=== PATIENT | male | born 1950 | race Caucasian/White ===

== ENCOUNTER 2017-01-02 11:44 | Emergency (ER) | payer MEDICARE, OTHER ==
[2017-01-02 11:45] VITALS: BMI 35.6
[2017-01-02 11:56] VITALS: RESP 16; TEMP 97; O2SAT 97
--- NOTE | 2017-01-02 12:38 | ED PDOC ---
Lower Extremity Pain/Injury Time Seen by Provider: 01/02/17 12:01 Chief Complaint (Nursing): Lower Extremity Problem/Injury Chief Complaint (Provider): Left knee pain History Per: Patient History/Exam Limitations: no limitations Onset/Duration Of Symptoms: Days (2 weeks) Current Symptoms Are (Timing): Still Present Pain Scale Rating Of: 7 Additional History Per: Patient Additional Complaint(s): The patient is a 66yo male, past medical history of hypertension, DM, coronary stent, presents to the ED for evaluation of left knee pain, for the past 2 weeks. Patient states the pain has been constant and was advised by his home nurse to visit the ED for an evaluation. Patient denies any injury or trauma to the knee and states he was pain-free prior to the onset of his symptoms. He denies any such pain in the past and reports his right knee is okay. He denies any numbness, tingling and states the pain is 7/10. He denies taking any medication for his pain and at present, offers no additional medical complaints. Past Medical History Reviewed: Historical Data, Nursing Documentation, Vital Signs Vital Signs: Last Vital Signs Temp 97 F L 01/02/17 11:52 Pulse 58 L 01/02/17 11:52 Resp 16 01/02/17 11:52 BP 136/91 H 01/02/17 11:52 Pulse Ox 97 01/02/17 11:52 - Medical History PMH: Arthritis, Depression, Diabetes, HTN, Hypercholesterolemia, Hyperlipidemia , Schizophrenia Denies: HIV, Chronic Kidney Disease - Surgical History Surgical History: Coronary Stent - Family History Family History: States: Diabetes Denies: Stroke, [place] - Immunization History Hx Tetanus Toxoid Vaccination: No Hx Influenza Vaccination: No Hx Pneumococcal Vaccination: No - Home Medications Home Medications: Ambulatory Orders Medication Instructions Recorded Aspirin 325 mg PO DAILY #14 tab 05/28/14 Clopidogrel [Plavix] 75 mg PO DAILY #14 tab 05/28/14 Cyanocobalamin [Vitamin B12 1000 1,000 mcg PO DAILY #14 tab 05/28/14 mcg Tab] Folic Acid 1 mg PO DAILY #14 tab 05/28/14 Metformin HCl 1,000 mg PO BID #14 tab 05/28/14 Naproxen 500 mg PO BID #28 tab 05/28/14 Ramipril 2.5 mg PO DAILY #14 cap 05/28/14 Cholecalciferol [Vitamin D 1000 IU] 2,000 unit PO DAILY 06/18/14 DULoxetine [Cymbalta] 60 mg PO BID 06/18/14 Home Med 1 unit .ROUTE DAILY #0 ea 06/18/14 Metoprolol Tartrate 25 mg PO BID 06/18/14 traMADol [Ultram] 50 mg PO Q6H PRN #15 tab 06/18/14 ARIPiprazole [Abilify] 10 mg PO DAILY #0 tab 06/24/14 Alprazolam [Xanax] 0.5 mg PO Q6 PRN 06/24/14 Aripiprazole [Abilify] 10 mg PO DAILY 06/24/14 Enoxaparin [Lovenox] 40 mg SC DAILY #0 syr 06/24/14 Tramadol Hydrochloride [Tramadol] 50 mg PO Q6H PRN #15 tab 07/14/14 traMADol [Ultram] 50 mg PO Q6H PRN #15 tab 01/02/17 - Allergies Allergies/Adverse Reactions: Allergies Allergy/AdvReac Type Severity Reaction Status Date / Time No Known Allergies Allergy Verified 01/02/17 12:24 Review of Systems ROS Statement: Except As Marked, All Systems Reviewed And Found Negative Musculoskeletal: Positive for: Leg Pain (lt knee pain) Neurological: Negative for: Weakness, Numbness (tingling) Physical Exam - Reviewed Nursing Documentation Reviewed: Yes Vital Signs Reviewed: Yes - Physical Exam Appears: Positive for: Well, Non-toxic, No Acute Distress Skin: Positive for: Normal Color, Warm, DRY Neck: Positive for: Normal, Supple Respiratory: Negative for: Respiratory Distress Extremity: Positive for: Normal ROM, Calf Tenderness (mild left calf tenderness) . Negative for: Deformity, Swelling Neurologic/Psych: Positive for: Alert, Oriented. Negative for: Motor/Sensory Deficits - ECG O2 Sat by Pulse Oximetry: 97 (RA) Pulse Ox Interpretation: Normal Medical Decision Making Medical Decision Making: Time: 1201 Impression: Left knee pain Plan: -- XR Left knee -- US Doppler lle -- Ultram 50 mg PO Reassess Time: 1339 XR as read by provider shows no signs of dislocation or fractures. Degenerative changes noted. US Doppler Impression: No sonographic or Doppler evidence for DVT in left lower extremity. Patient informed to f/u with PCP and is stable for discharge home. Scribe Attestation: Documented by Shey Acacia acting as a scribe for GARY Singh Provider Attestation: All medical record entries made by the Scribe were at my direction and personally dictated by me. I have reviewed the chart and agree that the record accurately reflects my personal performance of the history, physical exam, medical decision making, and the department course for this patient. I have also personally directed, reviewed, and agree with the discharge instructions and disposition. Disposition - Clinical Impression Clinical Impression: Knee pain Counseled Patient/Family Regarding: Studies Performed, Diagnosis, Need For Followup - Disposition Referrals: Michelle Yin MD [Staff Provider] - Disposition: Routine/Home Disposition Time: 13:39 Condition: STABLE Prescriptions: traMADol [Ultram] 50 mg PO Q6H PRN #15 tab PRN Reason: Pain Instructions: Knee Pain (ED) Forms: [facility] ([facility])
--- NOTE | 2017-01-02 13:14 | US ---
HISTORY: Knee pain, calf tenderness . PRIORS: None. FINDINGS: 2-D, color and duplex Doppler analysis of the lower extremity venous circulation using routine protocol from the femoral veins through the popliteal veins. Venous compressibility: Normal. Flow and augmentation patterns: Normal. Visualized veins upper third of calf: Normal. Perez cyst: None. IMPRESSION: No sonographic or Doppler evidence for DVT in left lower extremity.
[2017-01-02 13:47] VITALS: BP 143/84; PULSE 63
--- NOTE | 2017-01-02 14:11 | RAD ---
PROCEDURE: Left Knee Radiographs. HISTORY: Pain. COMPARISON: 06/18/2014 FINDINGS: BONES: There is no acute displaced fracture or bone destruction. Bone alignment and mineralization are normal. JOINTS: There is interval progression of severe degenerative osteoarthrosis in the medial compartment with severe reduced joint space, marginal osteophytes and subarticular cystic changes. There are also patellar osteophytes and mild degenerative osteoarthrosis in the patellofemoral joint. JOINT EFFUSION: There is a small suprapatellar joint effusion. OTHER FINDINGS: None. IMPRESSION: Interval progression of severe degenerative osteoarthrosis in the medial compartment. Small suprapatellar joint effusion.
== END 2017-01-02 13:47 | disposition home or self-care (01) ==
LOC: H.ER 11:44
DX: M25.562 Pain in left knee (principal); E11.9 Type 2 diabetes mellitus without complications; E78.5 Hyperlipidemia, unspecified; F20.9 Schizophrenia, unspecified; F32.9 Major depressive disorder, single episode, unspecified; I10 Essential (primary) hypertension; M17.12 Unilateral primary osteoarthritis, left knee; Z79.82 Long term (current) use of aspirin; Z95.5 Presence of coronary angioplasty implant and graft

== ENCOUNTER 2018-05-25 15:55 | Inpatient (IN) | payer MEDICARE ==
[2018-05-25 15:55] VITALS: BMI 35.6
[2018-05-25] MEDS ORDERED: Azithromycin 500 MG in Sodium Chloride 0.9% 250 ML IVPB ONE (17:45)
[2018-05-25 18:15] LABS: BASO # 0.1 K/uL (0.0-0.2); BASO % 0.9 % (0.0-2.0); EOS % 0.5 % (0.0-4.0); HEMOGLOBIN 15.8 g/dL (12.0-18.0); LYMPH # 1.1 K/uL (1.0-4.3); LYMPH % 17.4 % (20.0-40.0); MEAN CELL VOLUME 91.4 fl (80.0-94.0); MEAN CORPUSCULAR HEMOGLOBIN 30.7 pg (27.0-31.0); MEAN CORPUSCULAR HGB CONC 33.6 g/dL (33.0-37.0); MEAN PLATELET VOLUME 8.3 fl (7.2-11.7); MONO # 0.8 K/uL (0.0-0.8); MONO % 12.6 % (0.0-10.0); NEUT # 4.3 K/uL (1.8-7.0); NEUT % 68.6 % (50.0-75.0); NRBC % 0.2 % (0.0-0.0); RBC 5.16 Mil/uL (4.40-5.90); RED CELL DISTRIBUTION WIDTH 13.6 % (11.5-14.5); WHITE BLOOD COUNT 6.2 K/uL (4.8-10.8)
[2018-05-25] MEDS ORDERED: Azithromycin 500 MG IV IVPB ONE (18:27)
[2018-05-25 18:28] LABS: INR 1.1; PROTHROMBIN TIME 12.5 Seconds (9.8-13.1)
[2018-05-25 18:30] LABS: VENOUS BLOOD GAS BASE EXCESS 2.8 mmol/L (0.0-2.0); VENOUS BLOOD GAS PCO2 47 mmHg (40-60); VENOUS BLOOD GAS PO2 41 mm/Hg (30-55); VENOUS BLOOD PH 7.39 (7.32-7.43)
[2018-05-25 18:31] LABS: PARTIAL THROMBOPLASTIN TIME 32.1 Seconds (25.6-37.1)
[2018-05-25 18:38] LABS: ALB/GLOB RATIO 1.1 (1.0-2.1); ALBUMIN 4.2 g/dL (3.5-5.0); ALT/SGPT 42 U/L (21-72); AST/SGOT 56 U/L (17-59); BLOOD UREA NITROGEN 15 mg/dl (9-20); CALCIUM 8.8 mg/dL (8.4-10.2); GFR NON-AFRICAN AMERICAN > 60
[2018-05-25 18:44] LABS: B-TYPE NATRIURETIC PEPTIDE 383 pg/ml (0-900)
[2018-05-25] MEDS ORDERED: Sodium Chloride 0.9% 50 ML IV ONE (19:12)
[2018-05-25] MEDS ORDERED: Iodixanol 320 MG/ML 100 ML BOTTLE IV ONE (19:12)
--- NOTE | 2018-05-25 20:31 | ED PDOC ---
HPI: Trauma/Fall - HPI Time Seen by Provider: 05/25/18 16:23 Chief Complaint (Nursing): Trauma Chief Complaint (Provider): Trauma History Per: Patient History/Exam Limitations: other (Unreliable due to schizophrenia) Onset/Duration Of Symptoms: Hrs Additional Complaint(s): Patient is a 67 y/o male with a PMHx of HTN, hypercholesterolemia, HLD, arthritis, depression, DM, and schizophrenia who presents to the ED for evaluation of a one week cough with white and bloody sputum associated with SOB. According to niece, patient fell off bed and couldn't get up. Patient has been feeling weak all over since and is unsure as to why he has been having trouble getting up. The patient denies CP and fever. PCP: None Provided Past Medical History Reviewed: Historical Data, Nursing Documentation, Vital Signs Vital Signs: Last Vital Signs Temp 98.8 F 05/25/18 18:21 Pulse 121 H 05/25/18 19:04 Resp 22 05/25/18 19:04 BP 138/77 05/25/18 19:11 Pulse Ox 95 05/25/18 19:04 - Medical History PMH: Arthritis, Depression, Diabetes, HTN, Hypercholesterolemia, Hyperlipidemia, Schizophrenia Denies: HIV, Chronic Kidney Disease Other PMH: CAD - Surgical History Surgical History: Coronary Stent (X1) - Family History Family History: States: Diabetes Denies: Stroke, [place] - Immunization History Hx Tetanus Toxoid Vaccination: No Hx Influenza Vaccination: No Hx Pneumococcal Vaccination: No - Home Medications Home Medications: Ambulatory Orders Medication Instructions Recorded Aspirin 325 mg PO DAILY #14 tab 05/28/14 Clopidogrel [Plavix] 75 mg PO DAILY #14 tab 05/28/14 Cyanocobalamin [Vitamin B12 1000 1,000 mcg PO DAILY #14 tab 05/28/14 mcg Tab] Folic Acid 1 mg PO DAILY #14 tab 05/28/14 Metformin HCl 1,000 mg PO BID #14 tab 05/28/14 Naproxen 500 mg PO BID #28 tab 05/28/14 Ramipril 2.5 mg PO DAILY #14 cap 05/28/14 Cholecalciferol [Vitamin D 1000 IU] 2,000 unit PO DAILY 06/18/14 DULoxetine [Cymbalta] 60 mg PO BID 06/18/14 Home Med 1 unit .ROUTE DAILY #0 ea 06/18/14 Metoprolol Tartrate 25 mg PO BID 06/18/14 traMADol [Ultram] 50 mg PO Q6H PRN #15 tab 06/18/14 ARIPiprazole [Abilify] 10 mg PO DAILY #0 tab 06/24/14 Alprazolam [Xanax] 0.5 mg PO Q6 PRN 06/24/14 Aripiprazole [Abilify] 10 mg PO DAILY 06/24/14 Enoxaparin [Lovenox] 40 mg SC DAILY #0 syr 06/24/14 Tramadol Hydrochloride [Tramadol] 50 mg PO Q6H PRN #15 tab 07/14/14 traMADol [Ultram] 50 mg PO Q6H PRN #15 tab 01/02/17 - Allergies Allergies/Adverse Reactions: Allergies Allergy/AdvReac Type Severity Reaction Status Date / Time No Known Allergies Allergy Verified 01/02/17 12:24 Review of Systems ROS Statement: Except As Marked, All Systems Reviewed And Found Negative (as per HPI) Constitutional: Negative for: Fever Cardiovascular: Negative for: Chest Pain Respiratory: Positive for: Cough (white, bloody), Shortness of Breath Neurological: Positive for: Weakness (all over) Physical Exam - Reviewed Nursing Documentation Reviewed: Yes Vital Signs Reviewed: Yes - Physical Exam Appears: Positive for: Uncomfortable, In Acute Distress Head Exam: Positive for: ATRAUMATIC, NORMOCEPHALIC Skin: Positive for: Warm, Dry Eye Exam: Positive for: EOMI, PERRL ENT: Negative for: Pharyngeal Erythema, Tonsillar Exudate Neck: Positive for: Painless ROM, Supple Cardiovascular/Chest: Positive for: Tachycardia. Negative for: Edema, Murmur Respiratory: Positive for: Rhonchi (BIlateral, Occasionally ), Respiratory Distress (Mild) Gastrointestinal/Abdominal: Positive for: Soft, Other (Obese). Negative for: Tenderness Back: Positive for: Normal Inspection. Negative for: Muscle Spasm Extremity: Positive for: Other (obese body habitus appears to limit patient's strength: unable to roll himself in stretcher.). Negative for: Deformity Neurologic/Psych: Positive for: Alert, Mood/Affect (flat affect). Negative for: Motor/Sensory Deficits - Laboratory Results Result Diagrams: 05/25/18 18:00 05/25/18 18:00 - ECG O2 Sat by Pulse Oximetry: 95 (RA) Pulse Ox Interpretation: Normal Medical Decision Making Medical Decision Making: Time: 1800 Impression: SOB DDx includes but not limited to PNA, cHF, PE, ACS, and flu. Plan: Type and Screen Venous Blood Gas Shock CT Angio Chest PE Protocol EKG BNP CMP Creatine Phosphokinase Magnesium Phosphorus Troponin I CBC PTT Prothrombin Time Chest Portable XRay Lasix 40 mg IVP Tamiflu Cap 75 mg pO Zithromax 500 mg IV Zithromax 500 mg Sodium Chloride 0.9% 250 ml IVPB blood Culture Risk Consulting Treasury Director IV Insertion ([place]) Influenza A B Labs demonstrate elevated lactic acid, otherwise no emergently sginficiant abnormalities. CXR also with cardiomegaly but no obvious effusion or pneumonia. Pt developed fever in ER. CLINICAL HISTORY: Shortness of breath and hemoptysis. TECHNIQUE: Scans are obtained with the bolus injection of IV contrast media. Visipaque 320 95 ml was administered. 561.11 mGy-cm COMMENTS: There is bright opacification of the aorta and pulmonary arterial structures. The aorta is normal caliber and there is no dissection of the intima. The heart is moderately enlarged. Diffuse calcifications are present. Mild pulmonary venous congestive changes are present. There is scattered pulmonary edema present. Mosaic- type attenuation is present in lung apices, likely due to air trapping. Note is made of several lung nodules. The primary nodule noted is subpleural in the right lower lobe. There is a 3 mm nodule noted in the right middle lobe. There is a 5 mm subpleural nodule noted in the left lower lobe. Followup is recommended in six months. There are no enlarged mediastinal or hilar lymph nodes. No change is seen in the included upper abdominal structures. Note is made of mild chronic compression fracture deformities involving several thoracic vertebral bodies. IMPRESSION: 1. Moderate cardiomegaly with diffuse calcifications. 2. Mild pulmonary venous congestive changes, and scattered pulmonary edema. 3. Mosaic- type attenuation in lung apices, likely due to air trapping. 4. Several lung nodules. Followup is recommended in six months. 5. No evidence of PE. Electronically signed on May 25, 2018 9:27:31 PM EST by: Devyn Crystal M.D., AYAAN Certified By [employer] & [facility] Fellowship Trained MRI and CT Specialist ROGER Albarado [facility] service for hospitalization for febrile illness and CHF Scribe Attestation: Documented by Federico Mckeon, acting as a scribe for Dr. Lexy Krishnamurthy. Provider Scribe Attestation: All medical record entries made by the Scribe were at my direction and personally dictated by me. I have reviewed the chart and agree that the record accurately reflects my personal performance of the history, physical exam, medical decision making, and the department course for this patient. I have also personally directed, reviewed, and agree with the discharge instructions and disposition. Disposition - Clinical Impression Clinical Impression: CHF (congestive heart failure), Febrile illness, acute - Disposition Disposition Time: 21:00 Condition: FAIR - Pt Status Changed To: Hospital Disposition Of: Inpatient - Admit Certification Admit to Inpatient:: After my assessment, the patient will require hospitalization for at least two midnights. This is because of the severity of symptoms shown, intensity of services needed, and/or the medical risk in this patient being treated as an outpatient. - POA Present On Arrival: None
[2018-05-25] MEDS ORDERED: Povidone Iodine Oint 10% Foilpak UD ONE (22:27)
[2018-05-25 23:46] LABS: URINE BILIRUBIN NEGATIVE (NEGATIVE); URINE BLOOD NEGATIVE (NEGATIVE); URINE CLARITY CLEAR (Clear); URINE COLOR YELLOW (YELLOW); URINE GLUCOSE (UA) 150 mg/dL (NEGATIVE); URINE LEUKOCYTE ESTERASE NEG Leu/uL (Negative); URINE PROTEIN 30 mg/dL (NEGATIVE); URINE UROBILINOGEN 0.2-1.0 mg/dL (0.2-1.0)
[2018-05-25] MEDS ORDERED: cefTRIAXone (Rocephin) 1 gm Inj ONE (23:49)
[2018-05-26] MEDS: Artificial Tears Opht Soln OU SCH ×4 (08:15→22:23)
--- NOTE | 2018-05-26 08:15 | CT ---
Date of service: 05/25/2018 PROCEDURE: CT Chest with contrast (Pulmonary Angiogram) HISTORY: sob hemoptysis COMPARISON: 03/25/2014 TECHNIQUE: Axial computed tomography images were obtained of the chest in the pulmonary arterial phase of enhancement. Coronal and sagittal reformatted images were created and reviewed. Intravenous contrast dose: Radiation dose: Total exam DLP = 571.67 mGy-cm. This CT exam was performed using one or more of the following dose reduction techniques: Automated exposure control, adjustment of the mA and/or kV according to patient size, and/or use of iterative reconstruction technique. FINDINGS: PULMONARY ARTERIES: Unremarkable. No pulmonary embolism. AORTA: No acute findings. No thoracic aortic aneurysm. No aortic atherosclerotic calcification or mural plaque present. LUNGS: Bibasilar juxtapleural nodules measuring 6 millimeters on the right and 5 millimeters on the left. Recommend six-month follow-up. PLEURAL SPACES: Unremarkable. No effusion or pneumothorax. HEART: Unremarkable. No cardiomegaly. No significant pericardial effusion. LYMPH NODES: No lymphadenopathy. BONES, CHEST WALL: Unremarkable. No fracture or destructive lesion OTHER FINDINGS: Fatty liver. IMPRESSION: Bibasilar juxtapleural nodules measuring 6 millimeters on the right and 5 millimeters on the left. Recommend six-month follow-up.
[2018-05-26] MEDS: GlipiZIDE 10 mg SR Tab PO SCH ×2 (08:16→17:35)
[2018-05-26] MEDS: Cholecalciferol 1,000 INTLU TAB PO SCH (08:17)
[2018-05-26 08:45] LABS: BASO % 0.4 % (0.0-2.0); EOS # 0.1 K/uL (0.0-0.7); EOS % 1.3 % (0.0-4.0); HEMOGLOBIN 15.7 g/dL (12.0-18.0); LYMPH # 1.1 K/uL (1.0-4.3); LYMPH % 18.9 % (20.0-40.0); MEAN CELL VOLUME 91.8 fl (80.0-94.0); MEAN CORPUSCULAR HEMOGLOBIN 30.2 pg (27.0-31.0); MEAN CORPUSCULAR HGB CONC 32.9 g/dL (33.0-37.0); MEAN PLATELET VOLUME 8.4 fl (7.2-11.7); MONO # 0.8 K/uL (0.0-0.8); MONO % 14.8 % (0.0-10.0); NEUT # 3.6 K/uL (1.8-7.0); NEUT % 64.6 % (50.0-75.0); NRBC % 0.1 % (0.0-0.0); RBC 5.2 Mil/uL (4.40-5.90); RED CELL DISTRIBUTION WIDTH 13.8 % (11.5-14.5); WHITE BLOOD COUNT 5.6 K/uL (4.8-10.8)
[2018-05-26 08:51] LABS: SQUAMOUS EPITHIAL < 1 /hpf (0-5); URINE BILIRUBIN NEGATIVE (NEGATIVE); URINE BLOOD NEGATIVE (NEGATIVE); URINE CLARITY CLEAR (Clear); URINE COLOR YELLOW (YELLOW); URINE GLUCOSE (UA) 150 mg/dL (NEGATIVE); URINE LEUKOCYTE ESTERASE NEG Leu/uL (Negative); URINE PROTEIN 30 mg/dL (NEGATIVE); URINE UROBILINOGEN 0.2-1.0 mg/dL (0.2-1.0)
[2018-05-26] MEDS ORDERED: HYPROMELLOSE OU SCH (09:00)
[2018-05-26] MEDS ORDERED: DEXTRAN OU SCH (09:00)
[2018-05-26] MEDS ORDERED: FOLIC ACID 1 MG PO SCH (09:00)
[2018-05-26] MEDS ORDERED: CHOLECALCIFEROL 2000 UNIT PO SCH (09:00)
[2018-05-26 09:06] LABS: ALB/GLOB RATIO 1.1 (1.0-2.1); ALBUMIN 4.1 g/dL (3.5-5.0); ALT/SGPT 37 U/L (21-72); AST/SGOT 49 U/L (17-59); BLOOD UREA NITROGEN 21 mg/dl (9-20); CALCIUM 8.9 mg/dL (8.4-10.2); GFR NON-AFRICAN AMERICAN > 60; HDL CHOLESTEROL 46 MG/DL (30-70)
[2018-05-26 09:14] LABS: LDL CHOLESTEROL 99 mg/dL (0-129)
[2018-05-26 09:21] LABS: T4 9.28 ug/dl (5.5-11.0)
--- NOTE | 2018-05-26 10:50 | RAD ---
Date of service: 05/25/2018 HISTORY: SOB COMPARISON: No prior. FINDINGS: LUNGS: No active pulmonary disease. PLEURA: No significant pleural effusion identified, no pneumothorax apparent. CARDIOVASCULAR: No aortic atherosclerotic calcification present. Normal cardiac size. No pulmonary vascular congestion. OSSEOUS STRUCTURES: No significant abnormalities. VISUALIZED UPPER ABDOMEN: Normal. OTHER FINDINGS: Right costophrenic angle cut off the edge of the film. Limited by underpenetration. IMPRESSION: No active disease. Right costophrenic angle cut off the edge of the film. Limited by underpenetration.
[2018-05-26] MEDS ORDERED: Azithromycin 500 MG IV IVPB ONE (16:01)
[2018-05-26] MEDS ORDERED: cefTRIAXone (Rocephin) 1 gm Inj ONE (16:01)
[2018-05-26] MEDS: Azithromycin 500 MG in Sodium Chloride 0.9% 250 ML IVPB SCH (17:14)
--- NOTE | 2018-05-26 18:01 | CP.PCM.HP ---
History of Present Illness - History of Present Illness History of Present Illness: CC: Fall. 67 y/o M, with PMHx: HTN, CAD with Coronay Stent x1, Hypercholesterolemia, HLD, Arthritis, DM, Depression, Schizophrenia, AMS. Pt was brought to [facility] [place] on 05/25/16 by EMS to be evaluated for a sustained fall on DOA, associated to generalized weakness. Apparently, Pt fell out of bed, found by niece lying on the floor unable to stand up, unknown if LOC. Worsening symptoms: Persistent cough for one week with whitish phlegm, at times with pink color sputum, associated to SOB with no relief. Dementia, Sinus ta chycardia on monitor, Obese BMI 37.4 Aggravated factor: Poor historian, standing/getting up of bed. No: Fever, chills, n/v/d, abdominal pain, sick contact. CXR: No active disease.. CT Chest: Bibasilar juxtapleural nodules, R biggest than L lung. Present on Admission - Present on Admission Any Indicators Present on Admission: No Review of Systems - Review of Systems Systems not reviewed;Unavailable: Acuity of Condition, Altered Mental Status Past Patient History - Infectious Disease Hx of Infectious Diseases: None - Past Medical History & Family History Past Medical History?: Yes Pertinent Family History: Unknown - Past Social History Smoking Status: Former Smoker Alcohol: None Drugs: Denies Home Situation {Lives}: Alone - CARDIAC Hx Cardiac Disorders: Yes (CAD, Stent x1) Hx Hypertension: Yes - PULMONARY Hx Respiratory Disorders: Yes Hx Sleep Apnea: Yes Other/Comment: CPAP AT NIGHT - NEUROLOGICAL Hx Neurological Disorder: Yes Hx Alzheimer's Disease: Yes Hx Dementia: Yes Hx Dizziness: Yes - HEENT Hx HEENT Problems: No Other/Comment: left ear hard of hearing - RENAL Hx Chronic Kidney Disease: No - ENDOCRINE/METABOLIC Hx Endocrine Disorders: Yes Hx Diabetes Mellitus Type 2: Yes - HEMATOLOGICAL/ONCOLOGICAL Hx Blood Disorders: No Hx Human Immunodeficiency Virus (HIV): No - INTEGUMENTARY Hx Dermatological Problems: No - MUSCULOSKELETAL/RHEUMATOLOGICAL Hx Musculoskeletal Disorders: Yes Hx Arthritis: Yes - GASTROINTESTINAL Hx Gastrointestinal Disorders: No - GENITOURINARY/GYNECOLOGICAL Hx Genitourinary Disorders: No - PSYCHIATRIC Hx Psychophysiologic Disorder: Yes Hx Depression: Yes - SURGICAL HISTORY Hx Surgeries: Yes Hx Coronary Stent: Yes (X1) - ANESTHESIA Hx Anesthesia: Yes Hx Anesthesia Reactions: No Hx Malignant Hyperthermia: No Meds Allergies/Adverse Reactions: Allergies Allergy/AdvReac Type Severity Reaction Status Date / Time No Known Allergies Allergy Verified 01/02/17 12:24 Physical Exam - Constitutional Appears: No Acute Distress, Confused - Head Exam Head Exam: NORMAL INSPECTION - Eye Exam Eye Exam: PERRL - ENT Exam ENT Exam: Normal Exam - Neck Exam Neck exam: Positive for: Normal Inspection - Respiratory Exam Respiratory Exam: Decreased Breath Sounds (b/l), Rhonchi (scattered) Additional comments: Crackles at L base - Cardiovascular Exam Cardiovascular Exam: REGULAR RHYTHM - GI/Abdominal Exam GI & Abdominal Exam: Normal Bowel Sounds, Soft - Extremities Exam Extremities exam: Positive for: normal inspection - Back Exam Back exam: NORMAL INSPECTION - Neurological Exam Additional comments: Awake, confused, disoriented, follows commands. - Psychiatric Exam Psychiatric exam: Depressed - Skin Skin Exam: Warm Results - Vital Signs Recent Vital Signs: Last Vital Signs Temp 98.5 F 05/26/18 17:19 Pulse 93 H 05/26/18 17:19 Resp 26 H 05/26/18 17:19 BP 85/52 L 05/26/18 17:28 Pulse Ox 98 05/26/18 17:19 reviewed J.Guilherme - Labs Result Diagrams: 05/26/18 08:15 05/26/18 08:15 Labs: Laboratory Results - last 24 hr 05/25/18 05/25/18 05/25/18 10:00 18:00 18:00 WBC 6.2 RBC 5.16 Hgb 15.8 Hct 47.2 MCV 91.4 MCH 30.7 MCHC 33.6 RDW 13.6 Plt Count 225 MPV 8.3 Neut % (Auto) 68.6 Lymph % (Auto) 17.4 L Hall % (Auto) 12.6 H Eos % (Auto) 0.5 Baso % (Auto) 0.9 Neut # (Auto) 4.3 Lymph # (Auto) 1.1 Hall # (Auto) 0.8 Eos # (Auto) 0.0 Baso # (Auto) 0.1 PT INR APTT pO2 VBG pH VBG pCO2 VBG HCO3 VBG Total CO2 VBG O2 Sat (Calc) VBG Base Excess VBG Potassium Glucose Lactate FiO2 Crit Value Called To Crit Value Called By Crit Value Read Back Blood Gas Notified Time Sodium 132 Potassium 4.7 Chloride 92 L Carbon Dioxide 27 Anion Gap 18 BUN 15 Creatinine 0.8 Est GFR ( Amer) > 60 Est GFR (Non-Af Amer) > 60 POC Glucose (mg/dL) Random Glucose 255 H Hemoglobin A1c Lactic Acid Calcium 8.8 Phosphorus 3.3 Magnesium 1.6 Total Bilirubin 1.0 AST 56 ALT 42 Alkaline Phosphatase 74 Total Creatine Kinase 749 H Troponin I 0.0320 NT-Pro-B Natriuret Pep 383 Total Protein 8.0 Albumin 4.2 Globulin 3.7 Albumin/Globulin Ratio 1.1 Triglycerides Cholesterol LDL Cholesterol Direct HDL Cholesterol Thyroxine (T4) TSH 3rd Generation Venous Blood Potassium Urine Color Urine Clarity Urine pH Ur Specific Hunter Urine Protein Urine Glucose (UA) Urine Ketones Urine Blood Urine Nitrate Urine Bilirubin Urine Urobilinogen Ur Leukocyte Esterase Urine RBC (Auto) Urine Microscopic WBC Ur Squamous Epith Cells Influenza Typ A,B (EIA) Blood Type Blood Type Confirm A POSITIVE Antibody Screen BBK History Checked 05/25/18 05/25/18 05/25/18 18:00 18:15 18:20 WBC RBC Hgb Hct MCV MCH MCHC RDW Plt Count MPV Neut % (Auto) Lymph % (Auto) Hall % (Auto) Eos % (Auto) Baso % (Auto) Neut # (Auto) Lymph # (Auto) Hall # (Auto) Eos # (Auto) Baso # (Auto) PT 12.5 INR 1.1 APTT 32.1 pO2 41 VBG pH 7.39 VBG pCO2 47 VBG HCO3 26.5 VBG Total CO2 29.9 H VBG O2 Sat (Calc) 77.1 H VBG Base Excess 2.8 H VBG Potassium 4.5 Glucose 264 H Lactate 3.4 H FiO2 21.0 Crit Value Called To marlene Krishnamurthy md Crit Value Called By Padilla jackson Crit Value Read Back Y Blood Gas Notified Time 1829 Sodium 130.0 L Potassium Chloride 93.0 L Carbon Dioxide Anion Gap BUN Creatinine Est GFR ( Amer) Est GFR (Non-Af Amer) POC Glucose (mg/dL) Random Glucose Hemoglobin A1c Lactic Acid Calcium Phosphorus Magnesium Total Bilirubin AST ALT Alkaline Phosphatase Total Creatine Kinase Troponin I NT-Pro-B Natriuret Pep Total Protein Albumin Globulin Albumin/Globulin Ratio Triglycerides Cholesterol LDL Cholesterol Direct HDL Cholesterol Thyroxine (T4) TSH 3rd Generation Venous Blood Potassium 4.5 Urine Color Urine Clarity Urine pH Ur Specific Hunter Urine Protein Urine Glucose (UA) Urine Ketones Urine Blood Urine Nitrate Urine Bilirubin Urine Urobilinogen Ur Leukocyte Esterase Urine RBC (Auto) Urine Microscopic WBC Ur Squamous Epith Cells Influenza Typ A,B (EIA) Negative for flu a/b Blood Type Blood Type Confirm Antibody Screen BBK History Checked 05/25/18 05/25/18 05/25/18 18:24 23:20 23:39 WBC RBC Hgb Hct MCV MCH MCHC RDW Plt Count MPV Neut % (Auto) Lymph % (Auto) Hall % (Auto) Eos % (Auto) Baso % (Auto) Neut # (Auto) Lymph # (Auto) Hall # (Auto) Eos # (Auto) Baso # (Auto) PT INR APTT pO2 VBG pH VBG pCO2 VBG HCO3 VBG Total CO2 VBG O2 Sat (Calc) VBG Base Excess VBG Potassium Glucose Lactate FiO2 Crit Value Called To Crit Value Called By Crit Value Read Back Blood Gas Notified Time Sodium Potassium Chloride Carbon Dioxide Anion Gap BUN Creatinine Est GFR ( Amer) Est GFR (Non-Af Amer) POC Glucose (mg/dL) Random Glucose Hemoglobin A1c Lactic Acid 1.5 Calcium Phosphorus Magnesium Total Bilirubin AST ALT Alkaline Phosphatase Total Creatine Kinase Troponin I NT-Pro-B Natriuret Pep Total Protein Albumin Globulin Albumin/Globulin Ratio Triglycerides Cholesterol LDL Cholesterol Direct HDL Cholesterol Thyroxine (T4) TSH 3rd Generation Venous Blood Potassium Urine Color Yellow Urine Clarity Clear Urine pH 6.0 Ur Specific Hunter 1.028 Urine Protein 30 Urine Glucose (UA) 150 Urine Ketones Trace Urine Blood Negative Urine Nitrate Negative Urine Bilirubin Negative Urine Urobilinogen 0.2-1.0 Ur Leukocyte Esterase Neg Urine RBC (Auto) < 1 Urine Microscopic WBC 1 Ur Squamous Epith Cells Influenza Typ A,B (EIA) Blood Type A POSITIVE Blood Type Confirm Antibody Screen Negative BBK History Checked No verified bt 05/26/18 05/26/18 05/26/18 06:05 06:06 08:15 WBC 5.6 RBC 5.20 Hgb 15.7 Hct 47.7 MCV 91.8 MCH 30.2 MCHC 32.9 L RDW 13.8 Plt Count 225 MPV 8.4 Neut % (Auto) 64.6 Lymph % (Auto) 18.9 L Hall % (Auto) 14.8 H Eos % (Auto) 1.3 Baso % (Auto) 0.4 Neut # (Auto) 3.6 Lymph # (Auto) 1.1 Hall # (Auto) 0.8 Eos # (Auto) 0.1 Baso # (Auto) 0.0 PT INR APTT pO2 VBG pH VBG pCO2 VBG HCO3 VBG Total CO2 VBG O2 Sat (Calc) VBG Base Excess VBG Potassium Glucose Lactate FiO2 Crit Value Called To Crit Value Called By Crit Value Read Back Blood Gas Notified Time Sodium Potassium Chloride Carbon Dioxide Anion Gap BUN Creatinine Est GFR ( Amer) Est GFR (Non-Af Amer) POC Glucose (mg/dL) 252 H Random Glucose Hemoglobin A1c Lactic Acid Calcium Phosphorus Magnesium Total Bilirubin AST ALT Alkaline Phosphatase Total Creatine Kinase Troponin I 0.0430 NT-Pro-B Natriuret Pep Total Protein Albumin Globulin Albumin/Globulin Ratio Triglycerides Cholesterol LDL Cholesterol Direct HDL Cholesterol Thyroxine (T4) TSH 3rd Generation Venous Blood Potassium Urine Color Urine Clarity Urine pH Ur Specific Hunter Urine Protein Urine Glucose (UA) Urine Ketones Urine Blood Urine Nitrate Urine Bilirubin Urine Urobilinogen Ur Leukocyte Esterase Urine RBC (Auto) Urine Microscopic WBC Ur Squamous Epith Cells Influenza Typ A,B (EIA) Blood Type Blood Type Confirm Antibody Screen BBK History Checked 05/26/18 05/26/18 05/26/18 08:15 08:15 08:15 WBC RBC Hgb Hct MCV MCH MCHC RDW Plt Count MPV Neut % (Auto) Lymph % (Auto) Hall % (Auto) Eos % (Auto) Baso % (Auto) Neut # (Auto) Lymph # (Auto) Hall # (Auto) Eos # (Auto) Baso # (Auto) PT INR APTT 30.5 pO2 VBG pH VBG pCO2 VBG HCO3 VBG Total CO2 VBG O2 Sat (Calc) VBG Base Excess VBG Potassium Glucose Lactate FiO2 Crit Value Called To Crit Value Called By Crit Value Read Back Blood Gas Notified Time Sodium 135 Potassium 4.1 Chloride 95 L Carbon Dioxide 27 Anion Gap 17 BUN 21 H Creatinine 0.9 Est GFR ( Amer) > 60 Est GFR (Non-Af Amer) > 60 POC Glucose (mg/dL) Random Glucose 289 H Hemoglobin A1c 13.2 H D Lactic Acid Calcium 8.9 Phosphorus Magnesium Total Bilirubin 0.7 AST 49 ALT 37 Alkaline Phosphatase 77 Total Creatine Kinase Troponin I 0.0420 NT-Pro-B Natriuret Pep Total Protein 8.0 Albumin 4.1 Globulin 3.9 Albumin/Globulin Ratio 1.1 Triglycerides 125 D Cholesterol 165 LDL Cholesterol Direct 99 HDL Cholesterol 46 Thyroxine (T4) 9.28 TSH 3rd Generation 1.14 Venous Blood Potassium Urine Color Urine Clarity Urine pH Ur Specific Hunter Urine Protein Urine Glucose (UA) Urine Ketones Urine Blood Urine Nitrate Urine Bilirubin Urine Urobilinogen Ur Leukocyte Esterase Urine RBC (Auto) Urine Microscopic WBC Ur Squamous Epith Cells Influenza Typ A,B (EIA) Blood Type Blood Type Confirm Antibody Screen BBK History Checked 05/26/18 05/26/18 05/26/18 08:15 08:40 09:45 WBC RBC Hgb Hct MCV MCH MCHC RDW Plt Count MPV Neut % (Auto) Lymph % (Auto) Hall % (Auto) Eos % (Auto) Baso % (Auto) Neut # (Auto) Lymph # (Auto) Hall # (Auto) Eos # (Auto) Baso # (Auto) PT INR APTT pO2 VBG pH VBG pCO2 VBG HCO3 VBG Total CO2 VBG O2 Sat (Calc) VBG Base Excess VBG Potassium Glucose Lactate FiO2 Crit Value Called To Crit Value Called By Crit Value Read Back Blood Gas Notified Time Sodium Potassium Chloride Carbon Dioxide Anion Gap BUN Creatinine Est GFR ( Amer) Est GFR (Non-Af Amer) POC Glucose (mg/dL) 307 H Random Glucose Hemoglobin A1c Lactic Acid 1.7 Calcium Phosphorus Magnesium Total Bilirubin AST ALT Alkaline Phosphatase Total Creatine Kinase Troponin I NT-Pro-B Natriuret Pep Total Protein Albumin Globulin Albumin/Globulin Ratio Triglycerides Cholesterol LDL Cholesterol Direct HDL Cholesterol Thyroxine (T4) TSH 3rd Generation Venous Blood Potassium Urine Color Yellow Urine Clarity Clear Urine pH 6.0 Ur Specific Hunter 1.029 Urine Protein 30 Urine Glucose (UA) 150 Urine Ketones Trace Urine Blood Negative Urine Nitrate Negative Urine Bilirubin Negative Urine Urobilinogen 0.2-1.0 Ur Leukocyte Esterase Neg Urine RBC (Auto) < 1 Urine Microscopic WBC 1 Ur Squamous Epith Cells < 1 Influenza Typ A,B (EIA) Blood Type Blood Type Confirm Antibody Screen BBK History Checked 05/26/18 05/26/18 12:08 17:15 WBC RBC Hgb Hct MCV MCH MCHC RDW Plt Count MPV Neut % (Auto) Lymph % (Auto) Hall % (Auto) Eos % (Auto) Baso % (Auto) Neut # (Auto) Lymph # (Auto) Hall # (Auto) Eos # (Auto) Baso # (Auto) PT INR APTT pO2 VBG pH VBG pCO2 VBG HCO3 VBG Total CO2 VBG O2 Sat (Calc) VBG Base Excess VBG Potassium Glucose Lactate FiO2 Crit Value Called To Crit Value Called By Crit Value Read Back Blood Gas Notified Time Sodium Potassium Chloride Carbon Dioxide Anion Gap BUN Creatinine Est GFR ( Amer) Est GFR (Non-Af Amer) POC Glucose (mg/dL) 338 H 342 H Random Glucose Hemoglobin A1c Lactic Acid Calcium Phosphorus Magnesium Total Bilirubin AST ALT Alkaline Phosphatase Total Creatine Kinase Troponin I NT-Pro-B Natriuret Pep Total Protein Albumin Globulin Albumin/Globulin Ratio Triglycerides Cholesterol LDL Cholesterol Direct HDL Cholesterol Thyroxine (T4) TSH 3rd Generation Venous Blood Potassium Urine Color Urine Clarity Urine pH Ur Specific Hunter Urine Protein Urine Glucose (UA) Urine Ketones Urine Blood Urine Nitrate Urine Bilirubin Urine Urobilinogen Ur Leukocyte Esterase Urine RBC (Auto) Urine Microscopic WBC Ur Squamous Epith Cells Influenza Typ A,B (EIA) Blood Type Blood Type Confirm Antibody Screen BBK History Checked reviewed J.P. - EKG Data EKG comments: reviewed J.P. - Imaging and Cardiology Chest x-ray Status: Report reviewed by me (J.P.) Assessment & Plan (1) Status post fall Status: Acute Priority: High (2) Weakness Status: Acute Priority: High (3) Hyperglycemia Status: Acute Priority: High (4) Diabetes mellitus Status: Chronic Priority: High (5) Cough Status: Acute Priority: High (6) COPD (chronic obstructive pulmonary disease) Status: Chronic Priority: Medium (7) Lung nodules Status: Chronic (8) Arthritis Status: Chronic Priority: Medium (9) Schizophrenia Status: Chronic Priority: Medium - Assessment and Plan (Free Text) Plan: F/U EKG, continue Cozaar, Lopressor, Lasix, Vasotec,z yprexa, Folic acid, Lexapro, Ceftriaxone, Zithromax, Glucotrol XL and rest of Tx. PT, OT eval. N euro and Psychiatric consult. - Date & Time Date: 05/26/18 Time: 12:00
--- NOTE | 2018-05-26 20:12 | CARD ---
APPROVED REPORT Date of service: 05/25/2018 EKG Measurement Heart [id number] <Conclusion> Sinus tachycardia Nonspecific intraventricular block Nonspecific T wave abnormality Abnormal ECG
--- NOTE | 2018-05-27 09:37 | CP.PCM.CON ---
History of Present Illness - History of Present Illness History of Present Illness: Psychiatry consult note CC: "I can't breathe well." HPI: 67 yo male w/ h/o HLD, HTN, Arthritis, DM Schizophrenia (vs Schizoaffective Disorder), presents w/ SOB, cough, white and bloody sputum. Patient is a poor historian at this time. He is unable to tell designer writer the name of his current psychiatrist. A + O x self and hospital. He denies acute depression/anxiety/AH/VH/paranoia/delusions/SI/HI. He denies acute psychiatric complaints to designer writer. PMHx: HLD, HTN, Arthritis, DM PPHx: H/o past psychiatric admissions, patient could not specify when. ALL: NKDA SHx: Lives alone, from [place]; denies drugs/etoh/cig use. Impression: 67 yo male w/ h/o HLD, HTN, Arthritis, DM Schizophrenia (vs Schizoaffective Disorder), denies depression/anxiety/psychosis/SI/HI. Patient denies acute psychiatric complaints. He is currently a poor historian; unclear if patient has memory deficits from acute delirium due to acute medical issues vs chronic dementia. -No acute psychiatric admission indicated at this time -Recommend to continue with current psychiatric medications: Lexapro, Zyprexa and Trazodone Past Patient History - Infectious Disease Hx of Infectious Diseases: None - Past Medical History & Family History Past Medical History?: Yes - Past Social History Smoking Status: Former Smoker - CARDIAC Hx Hypercholesterolemia: Yes Hx Hypertension: Yes - PULMONARY Other/Comment: CPAP AT NIGHT - NEUROLOGICAL Hx Neurological Disorder: No - HEENT Hx HEENT Problems: No Other/Comment: left ear hard of hearing - RENAL Hx Chronic Kidney Disease: No - ENDOCRINE/METABOLIC Hx Endocrine Disorders: Yes - HEMATOLOGICAL/ONCOLOGICAL Hx Human Immunodeficiency Virus (HIV): No - INTEGUMENTARY Hx Dermatological Problems: No - MUSCULOSKELETAL/RHEUMATOLOGICAL Hx Arthritis: Yes Hx Falls: Yes - GASTROINTESTINAL Hx Gastrointestinal Disorders: No - GENITOURINARY/GYNECOLOGICAL Hx Genitourinary Disorders: No - PSYCHIATRIC Hx Depression: Yes Hx Schizophrenia: Yes Hx Substance Use: No - SURGICAL HISTORY Hx Coronary Stent: Yes (X1) - ANESTHESIA Hx Anesthesia: Yes Hx Anesthesia Reactions: No Hx Malignant Hyperthermia: No Meds Allergies/Adverse Reactions: Allergies Allergy/AdvReac Type Severity Reaction Status Date / Time No Known Allergies Allergy Verified 01/02/17 12:24 - Medications Medications: Current Medications Acetaminophen (Tylenol 325mg Tab) 650 mg PO Q4 PRN PRN Reason: Fever >100.4 F Last Admin: 05/26/18 12:06 Dose: 650 mg Amiodarone HCl (Cordarone) 200 mg PO BID [facility] Last Admin: 05/26/18 17:28 Dose: Not Given Artificial Tears (Artificial Tears) 1 drop OU QID [facility] Last Admin: 05/26/18 22:23 Dose: 1 drop Atorvastatin Calcium (Lipitor) 20 mg PO DAILY [facility] Last Admin: 05/26/18 08:20 Dose: 20 mg Cholecalciferol (Vitamin D) 2,000 intlu PO DAILY [facility] Last Admin: 05/26/18 08:17 Dose: 2,000 intlu Enalapril Maleate (Vasotec) 10 mg PO DAILY [facility] Last Admin: 05/26/18 08:19 Dose: 10 mg Escitalopram Oxalate (Lexapro) 10 mg PO HS [facility] Last Admin: 05/26/18 23:07 Dose: 10 mg Folic Acid (Folic Acid) 1 mg PO DAILY [facility] Last Admin: 05/26/18 08:19 Dose: 1 mg Furosemide (Lasix) 40 mg IVP DAILY [facility] Last Admin: 05/26/18 08:20 Dose: 40 mg Glipizide (Glucotrol Xl) 20 mg PO BID [facility] Last Admin: 05/26/18 17:35 Dose: 20 mg Azithromycin 500 mg/ Sodium (Chloride) 250 mls @ 250 mls/hr IVPB DAILY [facility]; Protocol Last Admin: 05/26/18 17:14 Dose: 250 mls/hr Ceftriaxone Sodium 1 gm/ (Sodium Chloride) 100 mls @ 100 mls/hr IVPB DAILY [facility]; Protocol Last Admin: 05/26/18 16:05 Dose: 100 mls/hr Losartan Potassium (Cozaar) 50 mg PO DAILY [facility] Last Admin: 05/26/18 08:19 Dose: 50 mg Metformin HCl (Glucophage) 1,000 mg PO DIN [facility] Last Admin: 05/26/18 17:22 Dose: 1,000 mg Metformin HCl (Glucophage) 1,500 mg PO DAILY [facility] Last Admin: 05/26/18 08:24 Dose: 1,500 mg Methotrexate (Methotrexate) 15 mg PO QWK [facility] Metoprolol Tartrate (Lopressor) 100 mg PO DAILY [facility] Last Admin: 05/26/18 08:20 Dose: 100 mg Olanzapine (Zyprexa) 10 mg PO HS [facility] Last Admin: 05/26/18 23:07 Dose: 10 mg Rivaroxaban (Xarelto) 20 mg PO DAILY [facility]; Protocol Trazodone HCl (Desyrel) 100 mg PO HS PRN PRN Reason: Sleep Results - Vital Signs Recent Vital Signs: Last Vital Signs Temp 99.2 F 05/27/18 07:54 Pulse 112 H 05/27/18 07:54 Resp 20 05/27/18 07:54 BP 111/72 05/27/18 07:54 Pulse Ox 96 05/27/18 07:54 - Labs Result Diagrams: 05/26/18 08:15 05/26/18 08:15 Labs: Laboratory Results - last 24 hr 05/26/18 05/26/18 05/26/18 06:05 08:15 09:45 POC Glucose (mg/dL) 252 H Hemoglobin A1c 13.2 H D Lactic Acid 1.7 05/26/18 05/26/18 05/26/18 12:08 17:15 20:03 POC Glucose (mg/dL) 338 H 342 H 255 H Hemoglobin A1c Lactic Acid 05/26/18 05/27/18 22:12 05:48 POC Glucose (mg/dL) 232 H 190 H Hemoglobin A1c Lactic Acid
[2018-05-27] MEDS: GlipiZIDE 10 mg SR Tab PO SCH ×2 (09:54→17:45)
--- NOTE | 2018-05-27 11:03 | CT ---
Date of service: 05/27/2018 PROCEDURE: CT HEAD WITHOUT CONTRAST. HISTORY: lethargy COMPARISON: None available. TECHNIQUE: Axial computed tomography images were obtained through the head/brain without intravenous contrast. Radiation dose: Total exam DLP = 911.72 mGy-cm. This CT exam was performed using one or more of the following dose reduction techniques: Automated exposure control, adjustment of the mA and/or kV according to patient size, and/or use of iterative reconstruction technique. FINDINGS: HEMORRHAGE: No intracranial hemorrhage. BRAIN: There are mild chronic microangiopathic changes. 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 There is no mass, mass effect or abnormal extra-axial fluid collection. There is no territorial infarction. The midline sagittal structures are normal. VENTRICLES: There is mild age-related global parenchymal volume loss and proportionate enlargement of the ventricles and cortical sulci. CALVARIUM: There is no calvarial fracture or extracranial soft tissue swelling. PARANASAL SINUSES: Predominantly clear. MASTOID AIR CELLS: Predominantly clear. OTHER FINDINGS: None. IMPRESSION: No acute intracranial abnormality. Mild chronic microangiopathic changes and mild age-related global parenchymal volume loss. 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
[2018-05-27] MEDS: Azithromycin 500 MG in Sodium Chloride 0.9% 250 ML IVPB SCH (15:50)
[2018-05-27] MEDS: Cholecalciferol 1,000 INTLU TAB PO SCH (15:53)
[2018-05-27] MEDS: Artificial Tears Opht Soln OU SCH ×4 (15:55→21:17)
--- NOTE | 2018-05-27 16:01 | CP.PCM.PN ---
Subjective - Date & Time of Evaluation Date of Evaluation: 05/27/18 Time of Evaluation: 10:40 - Subjective Subjective: F/U S/P Fall, Generalized weakness. awake, confused Objective - Vital Signs/Intake and Output Vital Signs (last 24 hours): Temp Pulse Resp BP Pulse Ox 99.1 F 115 H 18 111/72 96 05/27/18 15:40 05/27/18 15:40 05/27/18 15:40 05/27/18 15:53 05/27/18 15:40 - Medications Medications: Current Medications Acetaminophen (Tylenol 325mg Tab) 650 mg PO Q4 PRN PRN Reason: Fever >100.4 F Last Admin: 05/26/18 12:06 Dose: 650 mg Amiodarone HCl (Cordarone) 200 mg PO BID [facility] Last Admin: 05/27/18 09:00 Dose: 200 mg Artificial Tears (Artificial Tears) 1 drop OU QID [facility] Last Admin: 05/27/18 15:56 Dose: 1 drop Atorvastatin Calcium (Lipitor) 20 mg PO DAILY [facility] Last Admin: 05/27/18 15:55 Dose: 20 mg Cholecalciferol (Vitamin D) 2,000 intlu PO DAILY [facility] Last Admin: 05/27/18 15:53 Dose: 2,000 intlu Enalapril Maleate (Vasotec) 10 mg PO DAILY [facility] Last Admin: 05/27/18 15:53 Dose: 10 mg Escitalopram Oxalate (Lexapro) 10 mg PO HS [facility] Last Admin: 05/26/18 23:07 Dose: 10 mg Folic Acid (Folic Acid) 1 mg PO DAILY [facility] Last Admin: 05/27/18 15:54 Dose: 1 mg Furosemide (Lasix) 40 mg IVP DAILY [facility] Last Admin: 05/27/18 15:53 Dose: 40 mg Glipizide (Glucotrol Xl) 20 mg PO BID [facility] Last Admin: 05/27/18 09:54 Dose: 20 mg Azithromycin 500 mg/ Sodium (Chloride) 250 mls @ 250 mls/hr IVPB DAILY [facility]; Protocol Last Admin: 05/27/18 15:50 Dose: 250 mls/hr Ceftriaxone Sodium 1 gm/ (Sodium Chloride) 100 mls @ 100 mls/hr IVPB DAILY [facility]; Protocol Last Admin: 05/27/18 15:49 Dose: 100 mls/hr Losartan Potassium (Cozaar) 50 mg PO DAILY [facility] Last Admin: 05/27/18 15:55 Dose: 50 mg Metformin HCl (Glucophage) 1,000 mg PO DIN [facility] Last Admin: 05/26/18 17:22 Dose: 1,000 mg Metformin HCl (Glucophage) 1,500 mg PO DAILY [facility] Last Admin: 05/27/18 09:54 Dose: 1,500 mg Methotrexate (Methotrexate) 15 mg PO QWK [facility] Metoprolol Tartrate (Lopressor) 100 mg PO DAILY [facility] Last Admin: 05/27/18 15:53 Dose: 100 mg Olanzapine (Zyprexa) 10 mg PO HS [facility] Last Admin: 05/26/18 23:07 Dose: 10 mg Rivaroxaban (Xarelto) 20 mg PO DAILY [facility]; Protocol Trazodone HCl (Desyrel) 100 mg PO HS PRN PRN Reason: Sleep - Labs Labs: 05/26/18 08:15 05/26/18 08:15 PT 12.5 Seconds (9.8-13.1) 05/25/18 18:00 INR 1.1 05/25/18 18:00 APTT 30.5 Seconds (25.6-37.1) 05/26/18 08:15 - Constitutional Appears: No Acute Distress - Head Exam Head Exam: NORMAL INSPECTION - Eye Exam Eye Exam: PERRL - ENT Exam ENT Exam: Normal Exam - Neck Exam Neck Exam: Normal Inspection - Respiratory Exam Respiratory Exam: Decreased Breath Sounds (b/l), Rhonchi (scattered) Additional comments: Crackles L base - GI/Abdominal Exam GI & Abdominal Exam: Soft, Normal Bowel Sounds - Extremities Exam Extremities Exam: Normal Inspection - Back Exam Back Exam: NORMAL INSPECTION - Neurological Exam Neurological Exam: Awake Additional comments: Confused, disoriented, follows commands. - Psychiatric Exam Psychiatric exam: Depressed - Skin Skin Exam: Warm Assessment and Plan (1) Status post fall Status: Acute (2) Weakness Status: Acute (3) Hyperglycemia Status: Acute (4) Diabetes mellitus Status: Chronic (5) Cough Status: Acute (6) COPD (chronic obstructive pulmonary disease) Status: Chronic (7) Lung nodules Status: Chronic (8) Arthritis Status: Chronic (9) Schizophrenia Status: Chronic - Assessment and Plan (Free Text) Plan: continue Zithromax, Ceftriazone, DuoNeb, low grade temp, Psychiatric consult appreciated, continue Psychiatric meds, PT
--- NOTE | 2018-05-27 17:47 | CARD ---
APPROVED REPORT Date of service: 05/27/2018 EXAM: Two-dimensional and M-mode echocardiogram with Doppler and color Doppler. Other Information Quality : AverageRhythm : Tachycardia Technically limited study due to Poor Apical windows INDICATION Congestive Heart Failure 2D DIMENSIONS IVSd1.83 (0.7-1.1cm)LVDd4.37 (3.9-5.9cm) LVOT Diameter2.18 (1.8-2.4cm)PWd1.44 (0.7-1.1cm) IVSs1.91 (0.8-1.2cm)LVDs2.29 (2.5-4.0cm) FS (%) 47.6 %PWs2.15 (0.8-1.2cm) M-Mode DIMENSIONS Left Atrium (MM)3.54 (2.5-4.0cm)IVSd1.65 (0.7-1.1cm) Aortic Root3.38 (2.2-3.7cm)LVDd4.04 (4.0-5.6cm) Aortic Cusp Exc.1.22 (1.5-2.0cm)PWd1.56 (0.7-1.1cm) IVSs2.35 cmFS (%) 46 % LVDs2.18 (2.0-3.8cm)PWs2.08 cm Mitral Valve E/A ratio0.0 TDI E/Lateral E'0.0E/Medial E'0.0 LEFT VENTRICLE The left ventricle is normal size. There is mild concentric left ventricular hypertrophy. The left ventricular systolic function is normal. The estimated ejection fraction is 60-65% No regional wall motion abnormalities noted.. The left ventricular diastolic function is normal. No left ventricle thrombus noted on this study. There is no ventricular septal defect visualized. There is no left ventricular aneurysm. There is no mass noted in the left ventricle. RIGHT VENTRICLE The right ventricle is normal size. There is normal right ventricular wall thickness. The right ventricular systolic function is normal. ATRIA The left atrium size is normal. The right atrium size is normal. The interatrial septum is intact with no evidence for an atrial septal defect. AORTIC VALVE The aortic valve is normal in structure. No aortic regurgitation is present. There is no aortic valvular stenosis. There is no aortic valvular vegetation. MITRAL VALVE The mitral valve is normal in structure. There is no evidence of mitral valve prolapse. There is no mitral valve stenosis. There is no mitral valve regurgitation noted. TRICUSPID VALVE The tricuspid valve is normal in structure. There is no tricuspid valve regurgitation noted. There is no tricuspid valve prolapse or vegetation. There is no tricuspid valve stenosis. PULMONIC VALVE The pulmonary valve is normal in structure. There is no pulmonic valvular regurgitation. There is no pulmonic valvular stenosis. GREAT VESSELS The aortic root is normal in size. The ascending aorta is normal in size. The pulmonary artery is normal. The IVC is not well visualized. PERICARDIAL EFFUSION There is no pericardial effusion. There is no pleural effusion. <Conclusion> There is mild concentric left ventricular hypertrophy. The estimated ejection fraction is 60-65% The left ventricular diastolic function is normal. The left atrium size is normal. There is no tricuspid valve regurgitation noted. The IVC is not well visualized.
[2018-05-28] MEDS ORDERED: Albuterol-Ipratrop 3 mg / 0.5 (3 ml) UD INH PRN (08:54)
[2018-05-28] MEDS: Artificial Tears Opht Soln OU SCH ×4 (09:15→21:56)
[2018-05-28] MEDS: GlipiZIDE 10 mg SR Tab PO SCH ×2 (09:16→17:06)
[2018-05-28] MEDS: Cholecalciferol 1,000 INTLU TAB PO SCH (09:24)
[2018-05-28 10:31] LABS: HEMOGLOBIN 13.3 g/dL (12.0-18.0); MEAN CELL VOLUME 94.7 fl (80.0-94.0); MEAN CORPUSCULAR HEMOGLOBIN 30.9 pg (27.0-31.0); MEAN CORPUSCULAR HGB CONC 32.7 g/dL (33.0-37.0); RBC 4.31 Mil/uL (4.40-5.90); WHITE BLOOD COUNT 6.6 K/uL (4.8-10.8)
[2018-05-28 10:45] LABS: CALCIUM 7.8 mg/dL (8.4-10.2)
[2018-05-28] MEDS: Azithromycin 500 MG in Sodium Chloride 0.9% 250 ML IVPB SCH (11:30)
[2018-05-28 13:36] LABS: ALBUMIN 3.4 g/dL (3.5-5.0); URIC ACID 11.1 mg/Dl (3.5-8.5)
--- NOTE | 2018-05-28 14:17 | CP.PCM.CON ---
History of Present Illness - History of Present Illness History of Present Illness: Neurology Consultation Note: Mr. Morales is a 67-year-old man with a past medical history of HLD, HTN, Arthritis, DM Schizophrenia (vs Schizoaffective Disorder), who was admitted for URI symptoms and is s/p fall with altered mental status. Neurology was consulted for evaluation after CT scan of the head also showed chronic ischemic changes and possible prior right parietal lobe infarct. Review of Systems - Review of Systems Systems not reviewed;Unavailable: Altered Mental Status Past Patient History - Infectious Disease Hx of Infectious Diseases: None - Past Medical History & Family History Past Medical History?: Yes - Past Social History Smoking Status: Former Smoker Alcohol: None Drugs: Denies Home Situation {Lives}: Alone - CARDIAC Hx Cardiac Disorders: Yes (CAD, Stent x1) Hx Hypertension: Yes - PULMONARY Hx Respiratory Disorders: Yes Hx Sleep Apnea: Yes Other/Comment: CPAP AT NIGHT - NEUROLOGICAL Hx Neurological Disorder: Yes Hx Alzheimer's Disease: Yes Hx Dementia: Yes Hx Dizziness: Yes - HEENT Hx HEENT Problems: No Other/Comment: left ear hard of hearing - RENAL Hx Chronic Kidney Disease: No - ENDOCRINE/METABOLIC Hx Endocrine Disorders: Yes Hx Diabetes Mellitus Type 2: Yes - HEMATOLOGICAL/ONCOLOGICAL Hx Blood Disorders: No Hx Human Immunodeficiency Virus (HIV): No - INTEGUMENTARY Hx Dermatological Problems: No - MUSCULOSKELETAL/RHEUMATOLOGICAL Hx Musculoskeletal Disorders: Yes Hx Arthritis: Yes - GASTROINTESTINAL Hx Gastrointestinal Disorders: No - GENITOURINARY/GYNECOLOGICAL Hx Genitourinary Disorders: No - PSYCHIATRIC Hx Psychophysiologic Disorder: Yes Hx Depression: Yes - SURGICAL HISTORY Hx Surgeries: Yes Hx Coronary Stent: Yes (X1) - ANESTHESIA Hx Anesthesia: Yes Hx Anesthesia Reactions: No Hx Malignant Hyperthermia: No Meds Allergies/Adverse Reactions: Allergies Allergy/AdvReac Type Severity Reaction Status Date / Time No Known Allergies Allergy Verified 01/02/17 12:24 - Medications Medications: Current Medications Acetaminophen (Tylenol 325mg Tab) 650 mg PO Q4 PRN PRN Reason: Fever >100.4 F Last Admin: 05/26/18 12:06 Dose: 650 mg Albuterol/Ipratropium (Duoneb 3 Mg/0.5 Mg (3 Ml) Ud) 3 ml INH RQ4 PRN PRN Reason: Shortness of Breath Amiodarone HCl (Cordarone) 200 mg PO BID [facility] Last Admin: 05/28/18 09:20 Dose: 200 mg Artificial Tears (Artificial Tears) 1 drop OU QID [facility] Last Admin: 05/28/18 09:15 Dose: 1 drop Atorvastatin Calcium (Lipitor) 20 mg PO DAILY [facility] Last Admin: 05/28/18 09:21 Dose: 20 mg Cholecalciferol (Vitamin D) 2,000 intlu PO DAILY [facility] Last Admin: 05/28/18 09:24 Dose: 2,000 intlu Enalapril Maleate (Vasotec) 10 mg PO DAILY [facility] Last Admin: 05/28/18 09:22 Dose: Not Given Escitalopram Oxalate (Lexapro) 10 mg PO HS [facility] Last Admin: 05/27/18 21:16 Dose: 10 mg Folic Acid (Folic Acid) 1 mg PO DAILY [facility] Last Admin: 05/28/18 09:17 Dose: 1 mg Glipizide (Glucotrol Xl) 20 mg PO BID [facility] Last Admin: 05/28/18 09:16 Dose: 20 mg Ceftriaxone Sodium 1 gm/ (Sodium Chloride) 100 mls @ 100 mls/hr IVPB DAILY [facility]; Protocol Last Admin: 05/28/18 11:31 Dose: 100 mls/hr Azithromycin 500 mg/ Sodium (Chloride) 250 mls @ 250 mls/hr IVPB DAILY [facility]; Protocol Last Admin: 05/28/18 11:30 Dose: 250 mls/hr Sodium Chloride (Sodium Chloride 0.9%) 1,000 mls @ 100 mls/hr IV .Q10H [facility] Stop: 05/29/18 11:53 Losartan Potassium (Cozaar) 50 mg PO DAILY [facility] Last Admin: 05/28/18 09:20 Dose: Not Given Metformin HCl (Glucophage) 1,000 mg PO DIN [facility] Last Admin: 05/27/18 17:45 Dose: 1,000 mg Metformin HCl (Glucophage) 1,500 mg PO DAILY [facility] Last Admin: 05/28/18 09:17 Dose: 1,500 mg Methotrexate (Methotrexate) 15 mg PO QWK [facility] Metoprolol Tartrate (Lopressor) 12.5 mg PO BID [facility] Olanzapine (Zyprexa) 10 mg PO HS [facility] Last Admin: 05/27/18 21:16 Dose: 10 mg Rivaroxaban (Xarelto) 20 mg PO DAILY [facility]; Protocol Last Admin: 05/28/18 09:24 Dose: 20 mg Trazodone HCl (Desyrel) 100 mg PO HS PRN PRN Reason: Sleep Physical Exam - Constitutional Appears: Well - Head Exam Head Exam: ATRAUMATIC, NORMAL INSPECTION, NORMOCEPHALIC - Eye Exam Eye Exam: EOMI, Normal appearance, PERRL - ENT Exam ENT Exam: Mucous Membranes Moist, Normal Exam - Neck Exam Neck exam: Positive for: Normal Inspection - Respiratory Exam Respiratory Exam: Clear to Auscultation Bilateral, NORMAL BREATHING PATTERN - Cardiovascular Exam Cardiovascular Exam: REGULAR RHYTHM, +S1, +S2 - GI/Abdominal Exam GI & Abdominal Exam: Normal Bowel Sounds, Soft. absent: Tenderness - Rectal Exam Rectal Exam: Deferred - Back Exam Back exam: NORMAL INSPECTION - Neurological Exam Neurological exam: Alert, CN II-XII Intact, Normal Gait, Oriented x3, Reflexes Normal - Psychiatric Exam Psychiatric exam: Flat Affect - Skin Skin Exam: Dry, Intact, Normal Color, Warm Results - Vital Signs Recent Vital Signs: Last Vital Signs Temp 101.1 F H 05/28/18 12:06 Pulse 109 H 05/28/18 12:06 Resp 20 05/28/18 12:06 BP 120/74 05/28/18 12:06 Pulse Ox 93 L 05/28/18 12:06 - Labs Result Diagrams: 05/28/18 10:00 05/28/18 10:00 Labs: Laboratory Results - last 24 hr 05/27/18 05/27/18 05/28/18 16:15 22:17 05:23 WBC RBC Hgb Hct MCV MCH MCHC RDW Plt Count Sodium Potassium Chloride Carbon Dioxide Anion Gap BUN Creatinine Est GFR ( Amer) Est GFR (Non-Af Amer) POC Glucose (mg/dL) 258 H 252 H 153 H Random Glucose Uric Acid Calcium Phosphorus Total Bilirubin AST ALT Alkaline Phosphatase Total Protein Albumin Globulin Albumin/Globulin Ratio 05/28/18 05/28/18 05/28/18 10:00 10:00 10:28 WBC 6.6 RBC 4.31 L Hgb 13.3 D Hct 40.8 MCV 94.7 H D MCH 30.9 MCHC 32.7 L RDW 14.0 Plt Count 226 Sodium 134 Potassium 4.4 Chloride 96 L Carbon Dioxide 26 Anion Gap 16 BUN 55 H Creatinine 4.8 H Est GFR ( Amer) 15 Est GFR (Non-Af Amer) 12 POC Glucose (mg/dL) 294 H Random Glucose 290 H Uric Acid 11.1 H Calcium 7.8 L Phosphorus 5.8 H Total Bilirubin 0.4 AST 48 ALT 39 Alkaline Phosphatase 55 Total Protein 6.8 Albumin 3.4 L Globulin 3.4 Albumin/Globulin Ratio 1.0 Assessment & Plan (1) Acute encephalopathy Assessment and Plan: The patient's history of mental illness may be contributing to the current confusion. However, the patient may also have underlying cerebrovascular disease. I recommend the followin. MRI brain without contrast and MRA head/neck without contrast 2. Echocardiogram 3. Start aspirin 81 mg daily 4. Lipitor 40 mg daily 5. Control HTN, DM and other risk factors for stroke 6. PT/OT eval and treatment. Neurology will follow. Thank you for the consultation. Status: Acute
[2018-05-28 14:53] LABS: CALCIUM 8.2 mg/dL (8.4-10.2)
--- NOTE | 2018-05-28 15:40 | US ---
Date of service: 05/28/2018 PROCEDURE: Ultrasound of the Kidneys HISTORY: ARF COMPARISON: None available. TECHNIQUE: Sonogram of the kidneys. FINDINGS: Limitations, body habitus limits evaluation of the bilateral kidneys distorting sonographic definition. RIGHT KIDNEY: Measures: 12.3 x 6.4 x 7.2 cm. Normal in size but with poor corticomedullary differentiation. No stone, solid mass lesion or hydronephrosis visualized. LEFT KIDNEY: Measures: 12.6 x 6.3 x 6.8 cm. Normal in size but with poor corticomedullary differentiation. No stone, solid mass lesion or hydronephrosis visualized. OTHER FINDINGS: None. IMPRESSION: No obstructive uropathy bilaterally. Limited examination of the parenchyma due to body habitus but no definitive urolithiasis or solid mass appreciable. Poor corticomedullary differentiation may indicate intrinsic medical renal disease.
--- NOTE | 2018-05-28 15:41 | US ---
Date of service: 05/28/2018 PROCEDURE: Ultrasound of the Bladder HISTORY: urinary retention? COMPARISON: None available. TECHNIQUE: Sonographic evaluation of the bladder was performed. FINDINGS: Unremarkable without wall thickening or intraluminal debris. No calculus or gross mass lesion. No free fluid in pelvis. No ureteral jets encountered bilaterally on color Doppler ultrasound. Prevoid Volume: 243 cc. Post void residual: N/a cc. Patient unable to void. IMPRESSION: No definitive suspicious mural findings. The patient was unable to void and a postvoid residual could not be obtained as result. Prevoid volume measures 243 cc.
[2018-05-28] MEDS: Sodium Chloride 0.9% 1,000 ML IV SCH ×2 (17:08→21:56)
[2018-05-28] MEDS: Insulin Lispro (humaLOG) 100 Units/ml Inj SC SCH ×2 (18:35→21:55)
--- NOTE | 2018-05-29 04:36 | CON ---
DATE: 05/28/2018 NEPHROLOGY CONSULTATION LOCATION: [facility]. HISTORY OF PRESENT ILLNESS: Patient is a 67-year-old male with past medical history of hypertension, diabetes, CAD, status post stent, hyperlipidemia, arthritis, depression and schizophrenia, brought to ED 3 days ago due to fall. Nephrology now being consulted for acute renal failure. Patient is a very poor historian. History obtained partly from chart review and discussion with staff. Patient reportedly had persistent cough for 1 week, productive with whitish phlegm and some associated shortness of breath. Patient underwent CT chest with contrast on presentation which ruled out PE but was pertinent for finding of bibasilar juxtapleural nodules. Patient reportedly has also been feeling weak; was started on antibiotics with ceftriaxone and Zithromax. Patient had labs drawn this morning showing marked rise in the serum creatinine from 2 days ago. PAST MEDICAL HISTORY: As above. SOCIAL HISTORY: Former smoker. FAMILY HISTORY: Unknown. REVIEW OF SYSTEMS: CONSTITUTIONAL: Reports eating well. HEENT: Denies any difficulty swallowing. RESPIRATORY: Cough. CARDIOVASCULAR: Tachycardic. GASTROINTESTINAL: No nausea, vomiting or diarrhea. GENITOURINARY: Decreased urination, none this morning. MUSCULOSKELETAL: Denies any pain. PSYCHIATRIC: Found to have memory deficits, unclear due to acute delirium or acute medical issues versus chronic dementia as per Psychiatry. PHYSICAL EXAMINATION: VITAL SIGNS: This afternoon, blood pressure 120/74, heart rate 109, respirations 20, temperature 101.1, O2 sat 93% on nasal cannula oxygen. GENERAL: No distress. Able to answer questions albeit with difficulty. HEENT: Nonicteric. No cervical lymphadenopathy. RESPIRATORY: Minimal wheezing present. No obvious rhonchi. Some minimal rales. CARDIOVASCULAR: Heart sounds S1, S2 normal. No murmurs. No gallops. No rubs. GASTROINTESTINAL: Abdomen soft, nondistended. GENITOURINARY: Some lower abdominal/suprapubic tenderness. EXTREMITIES: No leg edema. SKIN: Warm. No cyanosis. NEUROLOGIC: No obvious resting tremor. PSYCHIATRIC: Not agitated. LABORATORY DATA: This morning, CBC: WBC 6.6, hemoglobin 13.3, hematocrit 40.8, platelets 226. Chemistry panel: Sodium 134, potassium 4.6, chloride 96, bicarb 24, BUN 57, creatinine 5.1, glucose 272, calcium 8.2, albumin 3.4, phosphorus 5.8, uric acid 11.1. Renal ultrasound, directly visualized, not showing any overt hydronephrosis. Bladder ultrasound showing distended bladder, 243 mL measured. Patient unable to void. ASSESSMENT AND PLAN: 1. Acute renal failure, etiology not entirely clear; however, patient did have contrast computed tomography done on presentation that likely has led to acute tubular necrosis. Currently with relatively stable electrolyte and volume status despite what appears to be oliguric renal failure. Does have mildly increased anion gap reflective of underlying metabolic acidosis likely with superimposed alkalosis as patient was receiving diuretics. We will hold all nephrotoxic medications including methotrexate for now. Holding angiotensin-converting enzyme inhibitor/angiotensin receptor luzma (unclear why patient was on both of them). Holding metformin to avoid lactic acidosis and renal failure. Agree with intravenous fluids and normal saline at 100 mL/hour. Should hold all diuretics for now. Obtain urine electrolytes. No indication for dialysis at this time. 2. Hypertension. Blood pressure currently controlled, need to avoid angiotensin-converting enzyme inhibitor/angiotensin receptor luzma at this time. Continue metoprolol 12.5 mg b.i.d. 3. Pneumonia. Patient is being treated with ceftriaxone and Zithromax. No renal dose adjustment needed. Thank you for this referral. We will continue to follow closely. Ismael Becerra MD
[2018-05-29 04:47] LABS: CREATININE, RANDOM URINE 232.3 mg/dL
[2018-05-29] MEDS: Artificial Tears Opht Soln OU SCH ×5 (08:40→22:16)
[2018-05-29] MEDS: Insulin Lispro (humaLOG) 100 Units/ml Inj SC SCH ×4 (08:43→22:17)
[2018-05-29] MEDS: GlipiZIDE 10 mg SR Tab PO SCH ×2 (08:43→16:51)
[2018-05-29] MEDS: Cholecalciferol 1,000 INTLU TAB PO SCH (08:48)
[2018-05-29 10:36] LABS: SQUAMOUS EPITHIAL 1 /hpf (0-5); URINE AMORPHOUS SEDIMENT RARE /ul (<OCC); URINE BACTERIA RARE (<OCC); URINE BILIRUBIN NEGATIVE (NEGATIVE); URINE BLOOD LARGE (NEGATIVE); URINE CLARITY CLOUDY (Clear); URINE COLOR YELLOW (YELLOW); URINE GLUCOSE (UA) 50 mg/dL (NEGATIVE); URINE LEUKOCYTE ESTERASE NEG Leu/uL (Negative); URINE PROTEIN 30 mg/dL (NEGATIVE); URINE UROBILINOGEN 0.2-1.0 mg/dL (0.2-1.0)
[2018-05-29] MEDS: Azithromycin 500 MG in Sodium Chloride 0.9% 250 ML IVPB SCH (11:05)
[2018-05-29] MEDS ORDERED: Sodium Chloride 0.9% 1,000 ML IV SCH ×2 (11:15→13:45)
--- NOTE | 2018-05-29 12:40 | CP.PCM.PN ---
Subjective - Date & Time of Evaluation Date of Evaluation: 05/29/18 Time of Evaluation: 12:39 - Subjective Subjective: Neurology Follow-Up Note: Mr. Morales was evaluated this afternoon while eating lunch. He offers no complaints. Denies h/a, dizziness, visual changes, chest pain, sob, n/v/d. Per nursing staff, pt was febrile, weak, confused this morning which seemed to improve with IVFs and IV abx. Objective - Vital Signs/Intake and Output Vital Signs (last 24 hours): Temp Pulse Resp BP Pulse Ox 97.2 F L 101 H 20 120/68 99 05/29/18 11:55 05/29/18 11:55 05/29/18 11:55 05/29/18 11:55 05/29/18 11:55 Intake and Output: 05/29/18 05/29/18 06:59 18:59 Output Total 620 Balance -620 - Medications Medications: Current Medications Acetaminophen (Tylenol 325mg Tab) 650 mg PO Q4 PRN PRN Reason: Fever >100.4 F Last Admin: 05/29/18 05:24 Dose: 650 mg Albuterol/Ipratropium (Duoneb 3 Mg/0.5 Mg (3 Ml) Ud) 3 ml INH RQ4 PRN PRN Reason: Shortness of Breath Amiodarone HCl (Cordarone) 200 mg PO BID [facility] Last Admin: 05/29/18 08:41 Dose: 200 mg Artificial Tears (Artificial Tears) 1 drop OU QID [facility] Last Admin: 05/29/18 08:40 Dose: 1 drop Aspirin (Ecotrin) 81 mg PO DAILY [facility] Last Admin: 05/29/18 08:42 Dose: 81 mg Atorvastatin Calcium (Lipitor) 20 mg PO DAILY [facility] Last Admin: 05/29/18 08:45 Dose: 20 mg Cholecalciferol (Vitamin D) 2,000 intlu PO DAILY [facility] Last Admin: 05/29/18 08:48 Dose: 2,000 intlu Enalapril Maleate (Vasotec) 10 mg PO DAILY [facility] Last Admin: 05/28/18 09:22 Dose: Not Given Escitalopram Oxalate (Lexapro) 10 mg PO HS [facility] Last Admin: 05/28/18 21:54 Dose: 10 mg Folic Acid (Folic Acid) 1 mg PO DAILY [facility] Last Admin: 05/29/18 08:42 Dose: 1 mg Glipizide (Glucotrol Xl) 20 mg PO BID [facility] Last Admin: 05/29/18 08:43 Dose: 20 mg Ceftriaxone Sodium 1 gm/ (Sodium Chloride) 100 mls @ 100 mls/hr IVPB DAILY [facility]; Protocol Last Admin: 05/29/18 08:47 Dose: 100 mls/hr Azithromycin 500 mg/ Sodium (Chloride) 250 mls @ 250 mls/hr IVPB DAILY [facility]; P rotocol Last Admin: 05/29/18 11:05 Dose: 250 mls/hr Sodium Chloride (Sodium Chloride 0.9%) 1,000 mls @ 100 mls/hr IV .Q10H [facility] Stop: 05/30/18 11:09 Insulin Human Lispro (Humalog) 0 units SC ACHS [facility]; Protocol Last Admin: 05/29/18 08:43 Dose: 2 units Losartan Potassium (Cozaar) 50 mg PO DAILY [facility] Last Admin: 05/28/18 09:20 Dose: Not Given Metformin HCl (Glucophage) 1,000 mg PO DIN [facility] Last Admin: 05/27/18 17:45 Dose: 1,000 mg Metformin HCl (Glucophage) 1,500 mg PO DAILY [facility] Last Admin: 05/28/18 09:17 Dose: 1,500 mg Methotrexate (Methotrexate) 15 mg PO QWK [facility] Metoprolol Tartrate (Lopressor) 12.5 mg PO BID [facility] Last Admin: 05/29/18 08:46 Dose: 12.5 mg Olanzapine (Zyprexa) 10 mg PO HS [facility] Last Admin: 05/28/18 21:54 Dose: 10 mg Rivaroxaban (Xarelto) 20 mg PO DAILY [facility]; Protocol Last Admin: 05/29/18 08:49 Dose: 20 mg Trazodone HCl (Desyrel) 100 mg PO HS PRN PRN Reason: Sleep - Labs Labs: 05/28/18 10:00 05/29/18 05:10 PT 12.5 Seconds (9.8-13.1) 05/25/18 18:00 INR 1.1 05/25/18 18:00 APTT 30.5 Seconds (25.6-37.1) 05/26/18 08:15 - Constitutional Appears: Well, Non-toxic, No Acute Distress - Head Exam Head Exam: ATRAUMATIC, NORMAL INSPECTION, NORMOCEPHALIC - Eye Exam Eye Exam: EOMI, PERRL Pupil Exam: NORMAL ACCOMODATION, PERRL - ENT Exam ENT Exam: Mucous Membranes Moist - Neck Exam Neck Exam: Full ROM, Normal Inspection - Respiratory Exam Respiratory Exam: NORMAL BREATHING PATTERN - GI/Abdominal Exam Additional comments: obese - Extremities Exam Extremities Exam: Full ROM. absent: Calf Tenderness, Pedal Edema - Back Exam Back Exam: Full ROM, NORMAL INSPECTION - Neurological Exam Neurological Exam: Alert, Awake, CN II-XII Intact, Reflexes Normal. 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 Mild chronic microangiopathic changes and mild age-related global parenchymal volume loss. 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 -MRI brain without contrast and MRA head/neck without contrast ordered--will f/u with results once completed. -Continue ASA and statin. -Continue PT/OT. -Continue current management of HTN, DM, A-fib and other risk factors for stroke. -Continue management and treatment for infectious illness which could be causing the pt to be increasingly confused. -Notify neuro team of any acute changes in condition. Case discussed with Dr. Arellano Status: Acute
[2018-05-29] MEDS: Sodium Chloride 0.9% 1,000 ML IV SCH (13:16)
--- NOTE | 2018-05-29 15:23 | CP.PCM.CON ---
History of Present Illness - History of Present Illness History of Present Illness: 67 yo male w/ h/o HLD, HTN, Arthritis, DM Schizophrenia (vs Schizoaffective Disorder), presents w/ SOB, cough, white and bloody sputum. Patient is a poor historian at this time. ID consulted for antibiotic management Patient denies chest pain or abdominal pain appears weak and debilitated with mild SOB at rest and cough A CT head was done which revealed chronic ischemic changes PMHx: HLD, HTN, Arthritis, DM ALL: NKDA SHx: Lives alone, from [place]; denies drugs/ ? etoh/ ? cig use. Review of Systems - Review of Systems Systems not reviewed;Unavailable: Altered Mental Status All systems: reviewed and no additional remarkable complaints except - Constitutional Constitutional: As Per HPI - EENT Eyes: absent: As Per HPI, Blind Spots, Blurred Vision, Change in Vision, Decreased Night Vision, Diplopia, Discharge, Dry Eye, Exophthalmos, Floaters, Irritation, Itchy Eyes, Loss of Peripheral Vision, Pain, Photophobia, Requires Corrective Lenses, Sees Flashes, Spots in Vision, Tunnel Vision, Other Visual Disturbances, Loss of Vision, Other Ears: absent: As Per HPI, Decreased Hearing, Ear Discharge, Ear Pain, Tinnitus, Abnormal Hearing, Disequilibrium, Dizziness, Other Nose/Mouth/Throat: absent: As Per HPI, Epistaxis, Nasal Congestion, Nasal Discharge, Nasal Obstruction, Nasal Trauma, Nose Pain, Post Nasal Drip, Sinus Pain, Sinus Pressure, Bleeding Gums, Change in Voice, Dental Pain, Dry Mouth, Dysphagia, Halitosis, Hoarsness, Lip Swelling, Mouth Lesions, Mouth Pain, Odynophagia, Sore Throat, Throat Swelling, Tongue Swelling, Facial Pain, Neck Pain, Neck Mass, Other - Cardiovascular Cardiovascular: absent: As Per HPI, Acrocyanosis, Chest Pain, Chest Pain at Rest, Chest Pain with Activity, Claudication, Diaphoresis, Dyspnea, Dyspnea on Exertion, Edema, Irregular Heart Rhythm, Pain Radiating to Arm/Neck/Jaw, Leg Edema, Leg Ulcers, Lightheadedness, Orthopnea, Palpitations, Paroxysmal Nocturnal Dyspnea, Pedal Edema, Radiating Pain, Rapid Heart Rate, Slow Heart Rate, Syncope, Other - Respiratory Respiratory: As Per HPI, Cough, Dyspnea. absent: Hemoptysis - Gastrointestinal Gastrointestinal: absent: As Per HPI, Abdominal Pain, Belching, Bloating, Change in Bowel Habits, Change in Stool Character, Coffee Ground Emesis, Constipation, Cramping, Diarrhea, Dyspepsia, Dysphagia, Early Satiety, Excessive Flatus, Fecal Incontinence, Heartburn, Hematemesis, Hematochezia, Loose Stools, Melena, Nausea, Odynophagia, Temesmus, Vomiting, Other - Genitourinary Genitourinary: absent: As Per HPI, Change in Urinary Stream, Difficulty Urinatin g, Dysuria, Flank Pain, Hematuria, Pyuria, Nocturia, Urinary Incontinence, Urinary Frequency, Urinary Hesitance, Urinary Urgency, Voiding Freq/Small Amts, Freq UTI, Hx Renal/Bladder Calculi, Hx /Renal Surgery, Bladder Distension, Other - Musculoskeletal Musculoskeletal: absent: As Per HPI, Abnormal Gait, Arthralgias, Atrophy, Back Pain, Deformity, Joint Swelling, Limited Range of Motion, Loss of Height, Muscle Cramps, Muscle Weakness, Myalgias, Neck Pain, Numbness, Radiating Pain into Limb, Stiffness, Tingling, Other - Integumentary Integumentary: absent: As Per HPI, Acne, Alopecia, Bleeding Lesions, Change in Hair, Change in Nails, Change in Pigmentation, Changing Lesions, Dry Skin, Erythema, Furuncle, Hirsutism, Lesions, New Lesions, Non-Healing Lesions, Photosensitivity, Pruritus, Rash, Skin Pain, Skin Ulcer, Sores, Striae, Swelling, Unusual Bruising, Wounds, Jaundice, Other - Neurological Neurological: absent: As Per HPI, Abnormal Gait, Abnormal Hearing, Abnormal Movements, Abnormal Speech, Behavioral Changes, Burning Sensations, Confusion, Convulsions, Disequilibrium, Dizziness, Numbness, Focal Weakness, Frequent Falls, Headaches, Lack of Coordination, Loss of Vision, Memory Loss, Paresthesias, Radicular Pain, Restless Legs, Sensory Deficit, Syncope, Tingling, Tremor, Vertigo, Weakness, Other Visual Disturbances, Other - Psychiatric Psychiatric: absent: As Per HPI, Abnormal Sleep Pattern, Anhedonia, Anxiety, Auditory Hallucinations, Behavioral Changes, Change in Appetite, Change in Libido, Confusion, Depression, Difficulty Concentrating, Hallucinations, Homicidal Ideation, Hopelessness, Irritability, Memory Loss, Mood Swings, Panic Attacks, Paranoia, Suicidal Ideation, Visual Hallucinations, Tactile Hallucin ations, Other - Endocrine Endocrine: absent: As Per HPI, Change in Body Appearance, Change in Libido, Cold Intolorance, Deepening of Voice, Excessive Sweating, Fatigue, Flushing, Heat Intolorance, Increase in Ring/Shoe/Hat Size, Palpitations, Polydipsia, Polyph agia, Polyuria, Other - Hematologic/Lymphatic Hematologic: absent: As Per HPI, Easy Bleeding, Easy Bruising, Lymphadenopathy, Other Past Patient History - Infectious Disease Hx of Infectious Diseases: None - Past Medical History & Family History Past Medical History?: Yes - Past Social History Smoking Status: Former Smoker Alcohol: None Drugs: Denies Home Situation {Lives}: Alone - CARDIAC Hx Cardiac Disorders: Yes (CAD, Stent x1) Hx Hypertension: Yes - PULMONARY Hx Respiratory Disorders: Yes Hx Sleep Apnea: Yes Other/Comment: CPAP AT NIGHT - NEUROLOGICAL Hx Neurological Disorder: Yes Hx Alzheimer's Disease: Yes Hx Dementia: Yes Hx Dizziness: Yes - HEENT Hx HEENT Problems: No Other/Comment: left ear hard of hearing - RENAL Hx Chronic Kidney Disease: No - ENDOCRINE/METABOLIC Hx Endocrine Disorders: Yes Hx Diabetes Mellitus Type 2: Yes - HEMATOLOGICAL/ONCOLOGICAL Hx Blood Disorders: No Hx Human Immunodeficiency Virus (HIV): No - INTEGUMENTARY Hx Dermatological Problems: No - MUSCULOSKELETAL/RHEUMATOLOGICAL Hx Musculoskeletal Disorders: Yes Hx Arthritis: Yes - GASTROINTESTINAL Hx Gastrointestinal Disorders: No - GENITOURINARY/GYNECOLOGICAL Hx Genitourinary Disorders: No - PSYCHIATRIC Hx Psychophysiologic Disorder: Yes Hx Depression: Yes - SURGICAL HISTORY Hx Surgeries: Yes Hx Coronary Stent: Yes (X1) - ANESTHESIA Hx Anesthesia: Yes Hx Anesthesia Reactions: No Hx Malignant Hyperthermia: No Meds Allergies/Adverse Reactions: Allergies Allergy/AdvReac Type Severity Reaction Status Date / Time No Known Allergies Allergy Verified 01/02/17 12:24 - Medications Medications: Current Medications Acetaminophen (Tylenol 325mg Tab) 650 mg PO Q4 PRN PRN Reason: Fever >100.4 F Last Admin: 05/29/18 05:24 Dose: 650 mg Albuterol/Ipratropium (Duoneb 3 Mg/0.5 Mg (3 Ml) Ud) 3 ml INH RQ4 PRN PRN Reason: Shortness of Breath Amiodarone HCl (Cordarone) 200 mg PO BID [facility] Last Admin: 05/29/18 08:41 Dose: 200 mg Artificial Tears (Artificial Tears) 1 drop OU QID [facility] Last Admin: 05/29/18 13:10 Dose: 1 drop Aspirin (Ecotrin) 81 mg PO DAILY [facility] Last Admin: 05/29/18 08:42 Dose: 81 mg Atorvastatin Calcium (Lipitor) 20 mg PO DAILY [facility] Last Admin: 05/29/18 08:45 Dose: 20 mg Cholecalciferol (Vitamin D) 2,000 intlu PO DAILY [facility] Last Admin: 05/29/18 08:48 Dose: 2,000 intlu Enalapril Maleate (Vasotec) 10 mg PO DAILY [facility] Last Admin: 05/28/18 09:22 Dose: Not Given Escitalopram Oxalate (Lexapro) 10 mg PO HS [facility] Last Admin: 05/28/18 21:54 Dose: 10 mg Folic Acid (Folic Acid) 1 mg PO DAILY [facility] Last Admin: 05/29/18 08:42 Dose: 1 mg Glipizide (Glucotrol Xl) 20 mg PO BID [facility] Last Admin: 05/29/18 08:43 Dose: 20 mg Ceftriaxone Sodium 1 gm/ (Sodium Chloride) 100 mls @ 100 mls/hr IVPB DAILY [facility]; Protocol Last Admin: 05/29/18 08:47 Dose: 100 mls/hr Azithromycin 500 mg/ Sodium (Chloride) 250 mls @ 250 mls/hr IVPB DAILY [facility]; Protocol Last Admin: 05/29/18 11:05 Dose: 250 mls/hr Sodium Chloride (Sodium Chloride 0.9%) 1,000 mls @ 125 mls/hr IV .Q8H [facility] Stop: 05/30/18 11:09 Insulin Human Lispro (Humalog) 0 units SC ACHS [facility]; Protocol Last Admin: 05/29/18 13:11 Dose: 4 units Losartan Potassium (Cozaar) 50 mg PO DAILY [facility] Last Admin: 05/28/18 09:20 Dose: Not Given Metformin HCl (Glucophage) 1,000 mg PO DIN [facility] Last Admin: 05/27/18 17:45 Dose: 1,000 mg Metformin HCl (Glucophage) 1,500 mg PO DAILY [facility] Last Admin: 05/28/18 09:17 Dose: 1,500 mg Methotrexate (Methotrexate) 15 mg PO QWK [facility] Metoprolol Tartrate (Lopressor) 12.5 mg PO BID [facility] Last Admin: 05/29/18 08:46 Dose: 12.5 mg Olanzapine (Zyprexa) 10 mg PO HS [facility] Last Admin: 05/28/18 21:54 Dose: 10 mg Rivaroxaban (Xarelto) 20 mg PO DAILY [facility]; Protocol Last Admin: 05/29/18 08:49 Dose: 20 mg Trazodone HCl (Desyrel) 100 mg PO HS PRN PRN Reason: Sleep Physical Exam - Constitutional Appears: No Acute Distress, Confused, Chronically Ill - Head Exam Head Exam: ATRAUMATIC, NORMAL INSPECTION, NORMOCEPHALIC - Eye Exam Eye Exam: PERRL. absent: Scleral icterus Pupil Exam: NORMAL ACCOMODATION - ENT Exam ENT Exam: Mucous Membranes Dry, Normal External Ear Exam, Normal Oropharynx - Neck Exam Neck exam: Negative for: Lymphadenopathy, Thyromegaly - Respiratory Exam Respiratory Exam: Decreased Breath Sounds, Prolonged Expiratory Phase, Rhonchi - Cardiovascular Exam Cardiovascular Exam: REGULAR RHYTHM, +S1, +S2 - GI/Abdominal Exam GI & Abdominal Exam: Diminished Bowel Sounds, Soft. absent: Tenderness - Rectal Exam Rectal Exam: Deferred - Exam Exam: NORMAL INSPECTION - Extremities Exam Extremities exam: Positive for: pedal pulses present. Negative for: calf tenderness, pedal edema, tenderness - Back Exam Back exam: absent: CVA tenderness (L), CVA tenderness (R), paraspinal tenderness - Neurological Exam Neurological exam: Alert, CN II-XII Intact, Oriented x3, Reflexes Normal - Psychiatric Exam Psychiatric exam: Depressed - Skin Skin Exam: Dry, Intact Results - Vital Signs Recent Vital Signs: Last Vital Signs Temp 97.2 F L 05/29/18 11:55 Pulse 101 H 05/29/18 11:55 Resp 20 05/29/18 11:55 BP 120/68 05/29/18 11:55 Pulse Ox 99 05/29/18 11:55 - Labs Result Diagrams: 05/28/18 10:00 05/29/18 05:10 Labs: Laboratory Results - last 24 hr 05/28/18 05/28/18 05/28/18 16:13 21:45 22:50 Sodium Potassium Chloride Carbon Dioxide Anion Gap BUN Creatinine Est GFR ( Amer) Est GFR (Non-Af Amer) POC Glucose (mg/dL) 320 H 418 H* 187 H Random Glucose Calcium Total Creatine Kinase Urine Color Urine Clarity Urine pH Ur Specific [place] Urine Protein Urine Glucose (UA) Urine Ketones Urine Blood Urine Nitrate Urine Bilirubin Urine Urobilinogen Ur Leukocyte Esterase Urine RBC (Auto) Urine Microscopic WBC Ur Squamous Epith Cells Amorphous Sediment Urine Bacteria Hyaline Casts Urine Yeast (Budding) Ur Random Creatinine U Random Total Protein Ur Random Sodium Ur Random Potassium 05/29/18 05/29/18 05/29/18 04:00 05:10 05:27 Sodium 137 Potassium 4.4 Chloride 101 Carbon Dioxide 24 Anion Gap 16 BUN 62 H Creatinine 5.6 H Est GFR ( Amer) 12 Est GFR (Non-Af Amer) 10 POC Glucose (mg/dL) 171 H Random Glucose 162 H Calcium 8.0 L Total Creatine Kinase Urine Color Urine Clarity Urine pH Ur Specific [place] Urine Protein Urine Glucose (UA) Urine Ketones Urine Blood Urine Nitrate Urine Bilirubin Urine Urobilinogen Ur Leukocyte Esterase Urine RBC (Auto) Urine Microscopic WBC Ur Squamous Epith Cells Amorphous Sediment Urine Bacteria Hyaline Casts Urine Yeast (Budding) Ur Random Creatinine 232.3 U Random Total Protein Ur Random Sodium 28 Ur Random Potassium 50.2 05/29/18 05/29/18 05/29/18 07:12 09:00 10:01 Sodium Potassium Chloride Carbon Dioxide Anion Gap BUN Creatinine Est GFR ( Amer) Est GFR (Non-Af Amer) POC Glucose (mg/dL) 180 H Random Glucose Calcium Total Creatine Kinase Urine Color Yellow Urine Clarity Cloudy Urine pH 5.0 Ur Specific [place] 1.015 Urine Protein 30 Urine Glucose (UA) 50 Urine Ketones Negative Urine Blood Large Urine Nitrate Negative Urine Bilirubin Negative Urine Urobilinogen 0.2-1.0 Ur Leukocyte Esterase Neg Urine RBC (Auto) 51 H Urine Microscopic WBC 10 H Ur Squamous Epith Cells 1 Amorphous Sediment Rare H Urine Bacteria Rare Hyaline Casts 3-5 H Urine Yeast (Budding) Few H Ur Random Creatinine U Random Total Protein 64 Ur Random Sodium Ur Random Potassium 05/29/18 05/29/18 10:48 12:16 Sodium Potassium Chloride Carbon Dioxide Anion Gap BUN Creatinine Est GFR ( Amer) Est GFR (Non-Af Amer) POC Glucose (mg/dL) 281 H Random Glucose Calcium Total Creatine Kinase 326 H Urine Color Urine Clarity Urine pH Ur Specific [place] Urine Protein Urine Glucose (UA) Urine Ketones Urine Blood Urine Nitrate Urine Bilirubin Urine Urobilinogen Ur Leukocyte Esterase Urine RBC (Auto) Urine Microscopic WBC Ur Squamous Epith Cells Amorphous Sediment Urine Bacteria Hyaline Casts Urine Yeast (Budding) Ur Random Creatinine U Random Total Protein Ur Random Sodium Ur Random Potassium Assessment & Plan (1) Acute encephalopathy Status: Acute (2) CHF (congestive heart failure) Status: Acute (3) Cough Status: Acute Priority: High (4) Febrile illness, acute Status: Acute (5) Status post fall Status: Acute Priority: High (6) Diabetes mellitus Status: Chronic Priority: High (7) CKD (chronic kidney disease) Status: Acute (8) Lung nodule Status: Acute (9) Lung nodule seen on imaging study Status: Acute - Assessment and Plan (Free Text) Assessment: 67 yo male w/ h/o HLD, HTN, Arthritis, DM Schizophrenia (vs Schizoaffective Disorder), presents w/ SOB, cough, white and bloody sputum. He has abnormal toxic metabolic encephalopathy with renal insufficiency and infectious process cultures and serologies sent IV antibiotics ordered Prognosis guarded
--- NOTE | 2018-05-29 16:12 | CP.PCM.PN ---
Subjective - Date & Time of Evaluation Date of Evaluation: 05/29/18 Time of Evaluation: 12:20 - Subjective Subjective: F/U: S/P Fall, Generalized weakness. Objective - Vital Signs/Intake and Output Vital Signs (last 24 hours): Temp Pulse Resp BP Pulse Ox 99.1 F 97 H 16 113/69 90 L 05/29/18 15:38 05/29/18 15:38 05/29/18 15:38 05/29/18 15:38 05/29/18 15:38 Intake and Output: 05/29/18 05/29/18 06:59 18:59 Output Total 620 Balance -620 - Medications Medications: Current Medications Acetaminophen (Tylenol 325mg Tab) 650 mg PO Q4 PRN PRN Reason: Fever >100.4 F Last Admin: 05/29/18 05:24 Dose: 650 mg Albuterol/Ipratropium (Duoneb 3 Mg/0.5 Mg (3 Ml) Ud) 3 ml INH RQ4 PRN PRN Reason: Shortness of Breath Amiodarone HCl (Cordarone) 200 mg PO BID [facility] Last Admin: 05/29/18 08:41 Dose: 200 mg Artificial Tears (Artificial Tears) 1 drop OU QID [facility] Last Admin: 05/29/18 13:10 Dose: 1 drop Aspirin (Ecotrin) 81 mg PO DAILY [facility] Last Admin: 05/29/18 08:42 Dose: 81 mg Atorvastatin Calcium (Lipitor) 20 mg PO DAILY [facility] Last Admin: 05/29/18 08:45 Dose: 20 mg Cholecalciferol (Vitamin D) 2,000 intlu PO DAILY [facility] Last Admin: 05/29/18 08:48 Dose: 2,000 intlu Enalapril Maleate (Vasotec) 10 mg PO DAILY [facility] Last Admin: 05/28/18 09:22 Dose: Not Given Escitalopram Oxalate (Lexapro) 10 mg PO HS [facility] Last Admin: 05/28/18 21:54 Dose: 10 mg Folic Acid (Folic Acid) 1 mg PO DAILY [facility] Last Admin: 05/29/18 08:42 Dose: 1 mg Glipizide (Glucotrol Xl) 20 mg PO BID [facility] Last Admin: 05/29/18 08:43 Dose: 20 mg Ceftriaxone Sodium 1 gm/ (Sodium Chloride) 100 mls @ 100 mls/hr IVPB DAILY [facility]; Protocol Last Admin: 05/29/18 08:47 Dose: 100 mls/hr Azithromycin 500 mg/ Sodium (Chloride) 250 mls @ 250 mls/hr IVPB DAILY [facility]; Protocol Last Admin: 05/29/18 11:05 Dose: 250 mls/hr Sodium Chloride (Sodium Chloride 0.9%) 1,000 mls @ 125 mls/hr IV .Q8H [facility] Stop: 05/30/18 11:09 Insulin Human Lispro (Humalog) 0 units SC ACHS [facility]; Protocol Last Admin: 05/29/18 13:11 Dose: 4 units Losartan Potassium (Cozaar) 50 mg PO DAILY [facility] Last Admin: 05/28/18 09:20 Dose: Not Given Metformin HCl (Glucophage) 1,000 mg PO DIN [facility] Last Admin: 05/27/18 17:45 Dose: 1,000 mg Metformin HCl (Glucophage) 1,500 mg PO DAILY [facility] Last Admin: 05/28/18 09:17 Dose: 1,500 mg Methotrexate (Methotrexate) 15 mg PO QWK [facility] Metoprolol Tartrate (Lopressor) 12.5 mg PO BID [facility] Last Admin: 05/29/18 08:46 Dose: 12.5 mg Olanzapine (Zyprexa) 10 mg PO HS [facility] Last Admin: 05/28/18 21:54 Dose: 10 mg Rivaroxaban (Xarelto) 20 mg PO DAILY [facility]; Protocol Last Admin: 05/29/18 08:49 Dose: 20 mg Trazodone HCl (Desyrel) 100 mg PO HS PRN PRN Reason: Sleep - Labs Labs: 05/28/18 10:00 05/29/18 05:10 PT 12.5 Seconds (9.8-13.1) 05/25/18 18:00 INR 1.1 05/25/18 18:00 APTT 30.5 Seconds (25.6-37.1) 05/26/18 08:15 - Constitutional Appears: No Acute Distress, Confused - Head Exam Head Exam: NORMAL INSPECTION - Eye Exam Eye Exam: PERRL - ENT Exam ENT Exam: Normal Exam - Neck Exam Neck Exam: Normal Inspection - Respiratory Exam Respiratory Exam: Decreased Breath Sounds (at bases), Rhonchi - Cardiovascular Exam Cardiovascular Exam: REGULAR RHYTHM - GI/Abdominal Exam GI & Abdominal Exam: Soft, Normal Bowel Sounds - Extremities Exam Extremities Exam: Normal Inspection - Back Exam Back Exam: NORMAL INSPECTION - Neurological Exam Neurological Exam: Awake, Reflexes Normal Additional comments: Confused, O x2, follows commands. - Psychiatric Exam Psychiatric exam: Depressed - Skin Skin Exam: Warm Assessment and Plan (1) Status post fall Status: Acute (2) Weakness Status: Acute (3) Hyperglycemia Status: Acute (4) Diabetes mellitus Status: Chronic (5) Cough Status: Acute (6) COPD (chronic obstructive pulmonary disease) Status: Chronic (7) Lung nodules Status: Chronic (8) Arthritis Status: Chronic (9) Schizophrenia Status: Chronic
--- NOTE | 2018-05-29 16:19 | RAD ---
Date of service: 05/29/2018 HISTORY: fever COMPARISON: No prior. TECHNIQUE: Chest PA and lateral FINDINGS: LUNGS: No active pulmonary disease. PLEURA: No significant pleural effusion identified. No pneumothorax apparent. CARDIOVASCULAR: No aortic atherosclerotic calcification present. Cardiomegaly. No evidence of acute, significant cardiovascular disease. No pulmonary vascular congestion. OSSEOUS STRUCTURES: No significant abnormalities. VISUALIZED UPPER ABDOMEN: Normal. OTHER FINDINGS: None. IMPRESSION: No active disease. No significant interval change compared to the prior examination(s).
--- NOTE | 2018-05-29 22:39 | CP.PCM.PN ---
Subjective - Date & Time of Evaluation Date of Evaluation: 05/29/18 Time of Evaluation: 13:00 - Subjective Subjective: Patient more alert today; tolerating diet; no vomiting/diarrhea; Objective - Vital Signs/Intake and Output Vital Signs (last 24 hours): Temp Pulse Resp BP Pulse Ox 99.4 F 90 16 111/60 93 L 05/29/18 19:49 05/29/18 19:49 05/29/18 19:49 05/29/18 19:49 05/29/18 19:49 Intake and Output: 05/29/18 05/30/18 18:59 06:59 Intake Total 2550 Output Total 900 Balance 1650 - Medications Medications: Current Medications Acetaminophen (Tylenol 325mg Tab) 650 mg PO Q4 PRN PRN Reason: Fever >100.4 F Last Admin: 05/29/18 05:24 Dose: 650 mg Albuterol/Ipratropium (Duoneb 3 Mg/0.5 Mg (3 Ml) Ud) 3 ml INH RQ4 PRN PRN Reason: Shortness of Breath Amiodarone HCl (Cordarone) 200 mg PO BID [facility] Last Admin: 05/29/18 16:50 Dose: 200 mg Artificial Tears (Artificial Tears) 1 drop OU QID [facility] Last Admin: 05/29/18 22:16 Dose: 1 drop Aspirin (Ecotrin) 81 mg PO DAILY [facility] Last Admin: 05/29/18 08:42 Dose: 81 mg Atorvastatin Calcium (Lipitor) 20 mg PO DAILY [facility] Last Admin: 05/29/18 08:45 Dose: 20 mg Cholecalciferol (Vitamin D) 2,000 intlu PO DAILY [facility] Last Admin: 05/29/18 08:48 Dose: 2,000 intlu Enalapril Maleate (Vasotec) 10 mg PO DAILY [facility] Last Admin: 05/28/18 09:22 Dose: Not Given Escitalopram Oxalate (Lexapro) 10 mg PO HS [facility] Last Admin: 05/29/18 22:09 Dose: 10 mg Folic Acid (Folic Acid) 1 mg PO DAILY [facility] Last Admin: 05/29/18 08:42 Dose: 1 mg Glipizide (Glucotrol Xl) 20 mg PO BID [facility] Last Admin: 05/29/18 16:51 Dose: 20 mg Ceftriaxone Sodium 1 gm/ (Sodium Chloride) 100 mls @ 100 mls/hr IVPB DAILY [facility]; Protocol Last Admin: 05/29/18 08:47 Dose: 100 mls/hr Azithromycin 500 mg/ Sodium (Chloride) 250 mls @ 250 mls/hr IVPB DAILY [facility]; Pro tocol Last Admin: 05/29/18 11:05 Dose: 250 mls/hr Insulin Human Lispro (Humalog) 0 units SC ACHS [facility]; Protocol Last Admin: 05/29/18 22:17 Dose: Not Given Losartan Potassium (Cozaar) 50 mg PO DAILY [facility] Last Admin: 05/28/18 09:20 Dose: Not Given Metformin HCl (Glucophage) 1,000 mg PO DIN [facility] Last Admin: 05/27/18 17:45 Dose: 1,000 mg Metformin HCl (Glucophage) 1,500 mg PO DAILY [facility] Last Admin: 05/28/18 09:17 Dose: 1,500 mg Methotrexate (Methotrexate) 15 mg PO QWK [facility] Metoprolol Tartrate (Lopressor) 12.5 mg PO BID [facility] Last Admin: 05/29/18 16:52 Dose: 12.5 mg Olanzapine (Zyprexa) 10 mg PO HS [facility] Last Admin: 05/29/18 22:09 Dose: 10 mg Rivaroxaban (Xarelto) 20 mg PO DAILY [facility]; Protocol Last Admin: 05/29/18 08:49 Dose: 20 mg Trazodone HCl (Desyrel) 100 mg PO HS PRN PRN Reason: Sleep - Labs Labs: 05/28/18 10:00 05/29/18 05:10 PT 12.5 Seconds (9.8-13.1) 05/25/18 18:00 INR 1.1 05/25/18 18:00 APTT 30.5 Seconds (25.6-37.1) 05/26/18 08:15 - Constitutional Appears: Non-toxic, No Acute Distress - Respiratory Exam Respiratory Exam: absent: Respiratory Distress Additional comments: some rhales; - Cardiovascular Exam Cardiovascular Exam: RRR, +S1, +S2 - GI/Abdominal Exam GI & Abdominal Exam: Soft. absent: Distended, Tenderness - Extremities Exam Additional comments: no leg edema - Neurological Exam Neurological Exam: Alert, Awake - Psychiatric Exam Psychiatric exam: absent: Agitated Assessment and Plan (1) Acute kidney injury Assessment & Plan: Non-oliguric renal failure, likely ATN secondary to contrast injury; relatively stable volume and electrolyte status; serum creatinine continuing to increase; no indication for HD at this time; -holding further IVF for now to avoid volume overload; -avoid nephrotoxic agents (NSAIDS, etc); -continue to hold metformin until patient with eGFR > 30 ml/min (to prevent lactic acidosis); Status: Acute (2) HTN (hypertension) Assessment & Plan: BP controlled; continue to hold AUDRA inhibitor/ARB; continue metoprolol; Status: Chronic
[2018-05-30 05:50] LABS: HEMOGLOBIN 12.8 g/dL (12.0-18.0); MEAN CORPUSCULAR HEMOGLOBIN 30.4 pg (27.0-31.0); RBC 4.22 Mil/uL (4.40-5.90); RED CELL DISTRIBUTION WIDTH 13.9 % (11.5-14.5); WHITE BLOOD COUNT 4.1 K/uL (4.8-10.8)
[2018-05-30 06:14] LABS: ALB/GLOB RATIO 0.9 (1.0-2.1); ALBUMIN 3.4 g/dL (3.5-5.0); CALCIUM 8.2 mg/dL (8.4-10.2)
[2018-05-30] MEDS: Artificial Tears Opht Soln OU SCH ×4 (08:35→21:05)
[2018-05-30] MEDS: Insulin Lispro (humaLOG) 100 Units/ml Inj SC SCH ×4 (08:37→21:55)
[2018-05-30] MEDS: GlipiZIDE 10 mg SR Tab PO SCH ×2 (08:37→16:29)
[2018-05-30] MEDS: Cholecalciferol 1,000 INTLU TAB PO SCH (08:41)
[2018-05-30] MEDS: Azithromycin 500 MG in Sodium Chloride 0.9% 250 ML IVPB SCH (10:13)
[2018-05-30 12:43] LABS: COMPLEMENT C4 37.4 mg/dL (14.0-44.0)
[2018-05-30 13:00] LABS: HEPATITIS B SURFACE AG Negative (NEGATIVE)
[2018-05-30 13:06] LABS: HEPATITIS A IGM NEGATIVE (NEGATIVE); HEPATITIS B CORE AB NEGATIVE (NEGATIVE)
[2018-05-30 13:17] LABS: HEPATITIS C ANTIBODY NEGATIVE (NEGATIVE)
[2018-05-30 13:31] LABS: ABG ALLEN TEST YES; ARTERIAL BLOOD GAS HCO3 23.1 mmol/L (21-28); ARTERIAL BLOOD GAS HEMOGLOBIN 13.9 g/dL (11.7-17.4); ARTERIAL BLOOD GAS O2 CONTENT 17.8 ML/dL (15-23); ARTERIAL BLOOD GAS O2 SAT 93.7 % (95-98); ARTERIAL BLOOD GAS PCO2 58 mm/Hg (35-45); ARTERIAL BLOOD GAS PH 7.26 (7.35-7.45); ARTERIAL BLOOD GAS PO2 66 mm/Hg (80-100); ARTERIAL BLOOD GAS TCO2 27.8 mmol/L (22-28)
--- NOTE | 2018-05-30 13:45 | CP.PCM.PN ---
Subjective - Date & Time of Evaluation Date of Evaluation: 05/30/18 Time of Evaluation: 11:00 - Subjective Subjective: F/U S/P Fall, Generalized weakness. lethargic, arousable, confused, follows commands Objective - Vital Signs/Intake and Output Vital Signs (last 24 hours): Temp Pulse Resp BP Pulse Ox 98.5 F 89 20 118/72 91 L 05/30/18 13:19 05/30/18 13:19 05/30/18 13:19 05/30/18 13:05/30/18 13:19 - Medications Medications: Current Medications Acetaminophen (Tylenol 325mg Tab) 650 mg PO Q4 PRN PRN Reason: Fever >100.4 F Last Admin: 05/29/18 05:24 Dose: 650 mg Albuterol/Ipratropium (Duoneb 3 Mg/0.5 Mg (3 Ml) Ud) 3 ml INH RQ4 PRN PRN Reason: Shortness of Breath Amiodarone HCl (Cordarone) 200 mg PO BID [facility] Last Admin: 05/30/18 08:35 Dose: 200 mg Artificial Tears (Artificial Tears) 1 drop OU QID [facility] Last Admin: 05/30/18 08:35 Dose: 1 drop Aspirin (Ecotrin) 81 mg PO DAILY [facility] Last Admin: 05/30/18 08:35 Dose: 81 mg Atorvastatin Calcium (Lipitor) 20 mg PO DAILY [facility] Last Admin: 05/30/18 08:38 Dose: 20 mg Cholecalciferol (Vitamin D) 2,000 intlu PO DAILY [facility] Last Admin: 05/30/18 08:41 Dose: 2,000 intlu Enalapril Maleate (Vasotec) 10 mg PO DAILY [facility] Last Admin: 05/28/18 09:22 Dose: Not Given Folic Acid (Folic Acid) 1 mg PO DAILY [facility] Last Admin: 05/30/18 08:36 Dose: 1 mg Glipizide (Glucotrol Xl) 20 mg PO BID [facility] Last Admin: 05/30/18 08:37 Dose: 20 mg Ceftriaxone Sodium 1 gm/ (Sodium Chloride) 100 mls @ 100 mls/hr IVPB DAILY [facility]; Protocol Last Admin: 05/30/18 08:40 Dose: 100 mls/hr Azithromycin 500 mg/ Sodium (Chloride) 250 mls @ 250 mls/hr IVPB DAILY [facility]; Protocol Last Admin: 05/30/18 10:13 Dose: 250 mls/hr Insulin Human Lispro (Humalog) 0 units SC ACHS [facility]; Protocol Last Admin: 05/30/18 08:37 Dose: 2 units Losartan Potassium (Cozaar) 50 mg PO DAILY [facility] Last Admin: 05/28/18 09:20 Dose: Not Given Metformin HCl (Glucophage) 1,000 mg PO DIN [facility] Last Admin: 05/27/18 17:45 Dose: 1,000 mg Metformin HCl (Glucophage) 1,500 mg PO DAILY [facility] Last Admin: 05/28/18 09:17 Dose: 1,500 mg Methotrexate (Methotrexate) 15 mg PO QWK [facility] Metoprolol Tartrate (Lopressor) 12.5 mg PO BID [facility] Last Admin: 05/30/18 08:39 Dose: 12.5 mg Rivaroxaban (Xarelto) 20 mg PO DAILY [facility]; Protocol Last Admin: 05/30/18 08:42 Dose: 20 mg Trazodone HCl (Desyrel) 100 mg PO HS PRN PRN Reason: Sleep - Labs Labs: 05/30/18 05:20 05/30/18 05:20 PT 12.5 Seconds (9.8-13.1) 05/25/18 18:00 INR 1.1 05/25/18 18:00 APTT 30.5 Seconds (25.6-37.1) 05/26/18 08:15 - Constitutional Appears: No Acute Distress - Head Exam Head Exam: NORMAL INSPECTION - Eye Exam Eye Exam: PERRL - ENT Exam ENT Exam: Normal Exam - Neck Exam Neck Exam: Normal Inspection - Respiratory Exam Respiratory Exam: Decreased Breath Sounds (at bases), Rhonchi - Cardiovascular Exam Cardiovascular Exam: REGULAR RHYTHM - GI/Abdominal Exam GI & Abdominal Exam: Soft, Normal Bowel Sounds - Extremities Exam Extremities Exam: Normal Inspection - Back Exam Back Exam: NORMAL INSPECTION - Neurological Exam Neurological Exam: Abnormal Gait Additional comments: lethargic, arousable, Confused, follows commands, no focal motor/sensory deficit - Skin Skin Exam: Rash, Warm Assessment and Plan (1) Status post fall Status: Acute (2) Weakness Status: Acute (3) Hyperglycemia Status: Acute (4) Diabetes mellitus Status: Chronic (5) Cough Status: Acute (6) COPD (chronic obstructive pulmonary disease) Status: Chronic (7) Lung nodules Status: Chronic (8) Arthritis Status: Chronic (9) Schizophrenia Status: Chronic - Assessment and Plan (Free Text) Plan: more lethargic today, Brain MRI-MRA negative, f/u ABG, Neuro consult, Renal function improved, blood and Urine C-S, CXR all negative, continue rest of Tx
--- NOTE | 2018-05-30 13:55 | CP.PCM.PCO ---
Assessment/Plan - Assessment and Plan (Free Text) Assessment: Patient seen this afternoon VSS, patient is asleep, lethargic, Nurse says patient has been this morning with periods off/on lethargy Labs reviewed with Dr Becerra and Dr Albarado, Arterial Blood gas showing metabolic acidosis-recommendation by Dr Albarado to start bipap repeat blood gas at 6pm and follow up Will also follow up MRI of brain and neuro recommendations Cont Neuro checks PRN.
--- NOTE | 2018-05-30 13:57 | CP.PCM.PN ---
Subjective - Date & Time of Evaluation Date of Evaluation: 05/30/18 Time of Evaluation: 13:56 - Subjective Subjective: Neurology Follow-Up Note: Mr. Morales was evaluated this afternoon while eating lunch. He states that he was feeling a little tired and slightly dizzy this morning; has improved since then. Per nursing staff he was lethargic this morning and has episodes where he is more lucid; ABG done shows hypercapnia. BiPap has been ordered by primary and pt is currently awaiting that now. Otherwise, he denies h/a, visual changes, chest pain, palpitations, sob, cough, n/v/d. Objective - Vital Signs/Intake and Output Vital Signs (last 24 hours): Temp Pulse Resp BP Pulse Ox 98.5 F 89 20 118/72 91 L 05/30/18 13:19 05/30/18 13:19 05/30/18 13:19 05/30/18 13:19 05/30/18 13:19 - Medications Medications: Current Medications Acetaminophen (Tylenol 325mg Tab) 650 mg PO Q4 PRN PRN Reason: Fever >100.4 F Last Admin: 05/29/18 05:24 Dose: 650 mg Albuterol/Ipratropium (Duoneb 3 Mg/0.5 Mg (3 Ml) Ud) 3 ml INH RQ4 PRN PRN Reason: Shortness of Breath Amiodarone HCl (Cordarone) 200 mg PO BID [facility] Last Admin: 05/30/18 08:35 Dose: 200 mg Artificial Tears (Artificial Tears) 1 drop OU QID [facility] Last Admin: 05/30/18 13:46 Dose: 1 drop Aspirin (Ecotrin) 81 mg PO DAILY [facility] Last Admin: 05/30/18 08:35 Dose: 81 mg Atorvastatin Calcium (Lipitor) 20 mg PO DAILY [facility] Last Admin: 05/30/18 08:38 Dose: 20 mg Cholecalciferol (Vitamin D) 2,000 intlu PO DAILY [facility] Last Admin: 05/30/18 08:41 Dose: 2,000 intlu Enalapril Maleate (Vasotec) 10 mg PO DAILY [facility] Last Admin: 05/28/18 09:22 Dose: Not Given Folic Acid (Folic Acid) 1 mg PO DAILY [facility] Last Admin: 05/30/18 08:36 Dose: 1 mg Glipizide (Glucotrol Xl) 20 mg PO BID [facility] Last Admin: 05/30/18 08:37 Dose: 20 mg Ceftriaxone Sodium 1 gm/ (Sodium Chloride) 100 mls @ 100 mls/hr IVPB DAILY [facility]; Protocol Last Admin: 05/30/18 08:40 Dose: 100 mls/hr Azithromycin 500 mg/ Sodium (Chloride) 250 mls @ 250 mls/hr IVPB DAILY [facility]; Protocol Last Admin: 05/30/18 10:13 Dose: 250 mls/hr Insulin Human Lispro (Humalog) 0 units SC ACHS [facility]; Protocol Last Admin: 05/30/18 13:46 Dose: 2 units Losartan Potassium (Cozaar) 50 mg PO DAILY [facility] Last Admin: 05/28/18 09:20 Dose: Not Given Metformin HCl (Glucophage) 1,000 mg PO DIN [facility] Last Admin: 05/27/18 17:45 Dose: 1,000 mg Metformin HCl (Glucophage) 1,500 mg PO DAILY [facility] Last Admin: 05/28/18 09:17 Dose: 1,500 mg Methotrexate (Methotrexate) 15 mg PO QWK [facility] Metoprolol Tartrate (Lopressor) 12.5 mg PO BID [facility] Last Admin: 05/30/18 08:39 Dose: 12.5 mg Rivaroxaban (Xarelto) 20 mg PO DAILY [facility]; Protocol Last Admin: 05/30/18 08:42 Dose: 20 mg Trazodone HCl (Desyrel) 100 mg PO HS PRN PRN Reason: Sleep - Labs Labs: 05/30/18 05:20 05/30/18 05:20 PT 12.5 Seconds (9.8-13.1) 05/25/18 18:00 INR 1.1 05/25/18 18:00 APTT 30.5 Seconds (25.6-37.1) 05/26/18 08:15 - Constitutional Appears: Well, Non-toxic - Head Exam Head Exam: ATRAUMATIC, NORMAL INSPECTION, NORMOCEPHALIC - Eye Exam Eye Exam: EOMI, Normal appearance, PERRL Pupil Exam: NORMAL ACCOMODATION, PERRL - ENT Exam ENT Exam: Mucous Membranes Moist - Neck Exam Neck Exam: Full ROM - Respiratory Exam Respiratory Exam: NORMAL BREATHING PATTERN Additional comments: no resp distress; however ABG shows CO2 58 - GI/Abdominal Exam Additional comments: obese - Extremities Exam Extremities Exam: Full ROM. absent: Calf Tenderness, Pedal Edema - Back Exam Back Exam: Full ROM - Neurological Exam Neurological Exam: Alert, Awake, CN II-XII Intact, Oriented x3, Reflexes Normal Neuro motor strength exam: Left Upper Extremity: 5, Right Upper Extremity: 5, Left Lower Extremity: 5, Right Lower Extremity: 5 Additional comments: speech clear, fluid awake, alert no focal neuro deficits noted; no tremors follows all commands, confused at times but cooperative, calm, pleasant - Psychiatric Exam Psychiatric exam: Normal Affect, Normal Mood - Skin Skin Exam: Normal Color Assessment and Plan (1) Acute encephalopathy Assessment & Plan: Imaging reviewed: -ECHO (05/26/18): EF 60/65% -CT Head (05/27/18): No acute intracranial abnormality. Mild chronic microangiopathic changes and mild age-related global parenchymal volume loss. 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 -MRI brain and MRA head completed--results pending. -MRA neck ordered; pt could not tolerate the exam. -For now we can do a carotid and vertebral ultrasound---will f/u with results once done. -Continue ASA and statin. -Continue PT/OT. -Continue neuro checks prn. -Continue current management of HTN, DM, A-fib and other risk factors for stroke. -Continue management and treatment for infectious illness which could be causing the pt to be increasingly confused. -Notify neuro team of any acute changes in condition. Case discussed with Dr. Arellano Status: Acute
--- NOTE | 2018-05-30 15:35 | MRI ---
Date of service: 05/29/2018 PROCEDURE: MRI BRAIN WITHOUT CONTRAST HISTORY: ischemic stroke COMPARISON: None available. TECHNIQUE: Multiplanar, multisequence MR images of the brain were obtained without intravenous contrast enhancement. FINDINGS: HEMORRHAGE: None DWI: No evidence of an acute or early subacute infarction. BRAIN PARENCHYMA: No mass effect or edema. Chronic microvascular changes are seen in the subcortical and periventricular white matter. VENTRICLES: Unremarkable. No hydrocephalus. CRANIUM: Unremarkable. ORBITS: Grossly unremarkable. PARANASAL SINUSES/MASTOIDS: Clear VASCULAR SYSTEM: Skull base flow voids intact. OTHER FINDINGS: The report concurs with the preliminary [facility] report IMPRESSION: No acute intracranial findings
--- NOTE | 2018-05-30 15:37 | MRI ---
Date of service: 05/29/2018 PROCEDURE: Magnetic Resonance Angiography Brain HISTORY: ischemic stroke COMPARISON: None available. TECHNIQUE: 3D time of flight MR angiography of the intracranial arteries was performed. Rotating maximum intensity projection images were generated. FINDINGS: INTERNAL CAROTID ARTERIES: Unremarkable. The skull base, petrous, cavernous and supraclinoid segments are bilaterally widely patient. ANTERIOR CEREBRAL ARTERIES: Unremarkable. A1 and A2 segments are widely patent. Smaller distal branches unremarkable, as visualized. MIDDLE CEREBRAL ARTERIES: Unremarkable. M1 and M2 segments are widely patent. Perisylvian branches grossly symmetric. POSTERIOR CIRCULATION: Basilar Artery: Unremarkable. Distal Vertebral Arteries: Unremarkable. Posterior Cerebral Arteries: Unremarkable. Posterior Inferior Cerebellar Arteries: Unremarkable. ANEURYSM/ VASCULAR MALFORMATIONS: None. OTHER FINDINGS: The report concurs with the preliminary [facility] report IMPRESSION: Unremarkable MR angiography of the brain.
[2018-05-30 17:05] LABS: RAPID PLASMA REAGIN NONREACTIVE (NONREACTIVE)
[2018-05-30 18:03] LABS: ABG ALLEN TEST YES; ARTERIAL BLOOD GAS HCO3 24.4 mmol/L (21-28); ARTERIAL BLOOD GAS HEMOGLOBIN 13.1 g/dL (11.7-17.4); ARTERIAL BLOOD GAS O2 CAPACITY 18.6 mL/dL (16-24); ARTERIAL BLOOD GAS O2 CONTENT 18.4 ML/dL (15-23); ARTERIAL BLOOD GAS O2 SAT 99.1 % (95-98); ARTERIAL BLOOD GAS PCO2 56 mm/Hg (35-45); ARTERIAL BLOOD GAS PH 7.29 (7.35-7.45); ARTERIAL BLOOD GAS PO2 250 mm/Hg (80-100); ARTERIAL BLOOD GAS TCO2 28.6 mmol/L (22-28)
--- NOTE | 2018-05-30 23:30 | CP.PCM.PN ---
Subjective - Date & Time of Evaluation Date of Evaluation: 05/30/18 Time of Evaluation: 13:00 - Subjective Subjective: Patient more somnolent today; Objective - Vital Signs/Intake and Output Vital Signs (last 24 hours): Temp Pulse Resp BP Pulse Ox 97.8 F 70 16 100/63 94 L 05/30/18 19:10 05/30/18 20:35 05/30/18 19:10 05/30/18 19:10 05/30/18 19:10 Intake and Output: 05/30/18 05/31/18 18:59 06:59 Intake Total 2550 Output Total 1999 Balance 550 - Medications Medications: Current Medications Acetaminophen (Tylenol 325mg Tab) 650 mg PO Q4 PRN PRN Reason: Fever >100.4 F Last Admin: 05/29/18 05:24 Dose: 650 mg Albuterol/Ipratropium (Duoneb 3 Mg/0.5 Mg (3 Ml) Ud) 3 ml INH RQ4 PRN PRN Reason: Shortness of Breath Amiodarone HCl (Cordarone) 200 mg PO BID [facility] Last Admin: 05/30/18 16:27 Dose: 200 mg Artificial Tears (Artificial Tears) 1 drop OU QID [facility] Last Admin: 05/30/18 21:05 Dose: 1 drop Aspirin (Ecotrin) 81 mg PO DAILY [facility] Last Admin: 05/30/18 08:35 Dose: 81 mg Atorvastatin Calcium (Lipitor) 20 mg PO DAILY [facility] Last Admin: 05/30/18 08:38 Dose: 20 mg Cholecalciferol (Vitamin D) 2,000 intlu PO DAILY [facility] Last Admin: 05/30/18 08:41 Dose: 2,000 intlu Enalapril Maleate (Vasotec) 10 mg PO DAILY [facility] Last Admin: 05/28/18 09:22 Dose: Not Given Folic Acid (Folic Acid) 1 mg PO DAILY [facility] Last Admin: 05/30/18 08:36 Dose: 1 mg Glipizide (Glucotrol Xl) 20 mg PO BID [facility] Last Admin: 05/30/18 16:29 Dose: 20 mg Ceftriaxone Sodium 1 gm/ (Sodium Chloride) 100 mls @ 100 mls/hr IVPB DAILY [facility]; Protocol Last Admin: 05/30/18 08:40 Dose: 100 mls/hr Azithromycin 500 mg/ Sodium (Chloride) 250 mls @ 250 mls/hr IVPB DAILY [facility]; Protocol Last Admin: 05/30/18 10:13 Dose: 250 mls/hr Insulin Human Lispro (Humalog) 0 units SC ACHS [facility]; Protocol Last Admin: 05/30/18 21:55 Dose: Not Given Losartan Potassium (Cozaar) 50 mg PO DAILY [facility] Last Admin: 05/28/18 09:20 Dose: Not Given Metformin HCl (Glucophage) 1,000 mg PO DIN [facility] Last Admin: 05/27/18 17:45 Dose: 1,000 mg Metformin HCl (Glucophage) 1,500 mg PO DAILY [facility] Last Admin: 05/28/18 09:17 Dose: 1,500 mg Methotrexate (Methotrexate) 15 mg PO QWK [facility] Metoprolol Tartrate (Lopressor) 12.5 mg PO BID [facility] Last Admin: 05/30/18 16:30 Dose: 12.5 mg Rivaroxaban (Xarelto) 20 mg PO DAILY [facility]; Protocol Last Admin: 05/30/18 08:42 Dose: 20 mg Trazodone HCl (Desyrel) 100 mg PO HS PRN PRN Reason: Sleep - Labs Labs: 05/30/18 05:20 05/30/18 05:20 PT 12.5 Seconds (9.8-13.1) 05/25/18 18:00 INR 1.1 05/25/18 18:00 APTT 30.5 Seconds (25.6-37.1) 05/26/18 08:15 - Constitutional Appears: Non-toxic, No Acute Distress - Eye Exam Eye Exam: Normal appearance - Respiratory Exam Respiratory Exam: Clear to Ausculation Bilateral. absent: Respiratory Distress - Cardiovascular Exam Cardiovascular Exam: RRR, +S1, +S2 - GI/Abdominal Exam GI & Abdominal Exam: Soft. absent: Distended, Tenderness - Extremities Exam Additional comments: no leg edema; - Neurological Exam Additional comments: somnolent but arousable; - Psychiatric Exam Psychiatric exam: absent: Agitated - Skin Skin Exam: Warm. absent: Cyanosis Assessment and Plan (1) Acute kidney injury Assessment & Plan: ATN from contrast injury, resolving; non-oliguric renal failure; stable volume and electrolyte status; holding IVF for now given concern for respiratory status; Status: Acute (2) HTN (hypertension) Assessment & Plan: BP controlled on metoprolol only, continue same; holding AUDRA inhibitor/ARB; Status: Chronic - Assessment and Plan (Free Text) Assessment: Acute hypercapneic respiratory failure - With hypoxia on ABG as well; etiology is unclear; being started on BIPAP;
[2018-05-31 00:20] LABS: ABG ALLEN TEST YES; ARTERIAL BLOOD GAS HCO3 25.3 mmol/L (21-28); ARTERIAL BLOOD GAS HEMOGLOBIN 13.8 g/dL (11.7-17.4); ARTERIAL BLOOD GAS O2 CAPACITY 18.9 mL/dL (16-24); ARTERIAL BLOOD GAS O2 CONTENT 18.3 ML/dL (15-23); ARTERIAL BLOOD GAS O2 SAT 96.8 % (95-98); ARTERIAL BLOOD GAS PCO2 47 mm/Hg (35-45); ARTERIAL BLOOD GAS PH 7.36 (7.35-7.45); ARTERIAL BLOOD GAS PO2 75 mm/Hg (80-100)
[2018-05-31 05:41] LABS: BASO % 0.9 % (0.0-2.0); EOS # 0.4 K/uL (0.0-0.7); EOS % 8.8 % (0.0-4.0); HEMOGLOBIN 12.6 g/dL (12.0-18.0); LYMPH # 1.5 K/uL (1.0-4.3); LYMPH % 31.7 % (20.0-40.0); MEAN CELL VOLUME 92.3 fl (80.0-94.0); MEAN CORPUSCULAR HEMOGLOBIN 30.5 pg (27.0-31.0); MEAN CORPUSCULAR HGB CONC 33.1 g/dL (33.0-37.0); MEAN PLATELET VOLUME 7.5 fl (7.2-11.7); MONO # 0.5 K/uL (0.0-0.8); MONO % 9.9 % (0.0-10.0); NEUT # 2.4 K/uL (1.8-7.0); NEUT % 48.7 % (50.0-75.0); NRBC % 0.1 % (0.0-0.0); RBC 4.11 Mil/uL (4.40-5.90); RED CELL DISTRIBUTION WIDTH 13.5 % (11.5-14.5); WHITE BLOOD COUNT 4.8 K/uL (4.8-10.8)
[2018-05-31 05:54] LABS: ALB/GLOB RATIO 0.9 (1.0-2.1); ALBUMIN 3.4 g/dL (3.5-5.0); CALCIUM 8.4 mg/dL (8.4-10.2)
[2018-05-31] MEDS: Insulin Lispro (humaLOG) 100 Units/ml Inj SC SCH ×4 (07:30→21:34)
[2018-05-31] MEDS: Artificial Tears Opht Soln OU SCH ×4 (09:00→21:32)
[2018-05-31] MEDS: GlipiZIDE 10 mg SR Tab PO SCH ×2 (09:01→17:52)
[2018-05-31] MEDS: Cholecalciferol 1,000 INTLU TAB PO SCH (09:03)
[2018-05-31] MEDS: Azithromycin 500 MG in Sodium Chloride 0.9% 250 ML IVPB SCH (09:04)
--- NOTE | 2018-05-31 12:18 | CP.PCM.PN ---
Subjective - Date & Time of Evaluation Date of Evaluation: 05/31/18 Time of Evaluation: 12:18 - Subjective Subjective: Neurology Follow-Up Note: Mr. Morales was evaluated this afternoon at bedside. He states that he feels better today. His only complaint is a cough with yellow sputum production. BiPap noted to be at bedside, though pt it not using it. He states that after using the BiPap yesterday he started feeling better and less tired. Otherwise, today he denies h/a, dizziness, visual changes, chest pain, palpitations, sob, cough, n/v/d. Objective - Vital Signs/Intake and Output Vital Signs (last 24 hours): Temp Pulse Resp BP Pulse Ox 97.9 F 84 20 131/84 93 L 05/31/18 11:54 05/31/18 11:54 05/31/18 11:54 05/31/18 11:54 05/31/18 11:54 - Medications Medications: Current Medications Acetaminophen (Tylenol 325mg Tab) 650 mg PO Q4 PRN PRN Reason: Fever >100.4 F Last Admin: 05/29/18 05:24 Dose: 650 mg Albuterol/Ipratropium (Duoneb 3 Mg/0.5 Mg (3 Ml) Ud) 3 ml INH RQ4 PRN PRN Reason: Shortness of Breath Amiodarone HCl (Cordarone) 200 mg PO BID [facility] Last Admin: 05/31/18 09:01 Dose: 200 mg Artificial Tears (Artificial Tears) 1 drop OU QID [facility] Last Admin: 05/31/18 09:00 Dose: 1 drop Aspirin (Ecotrin) 81 mg PO DAILY [facility] Last Admin: 05/31/18 09:01 Dose: 81 mg Atorvastatin Calcium (Lipitor) 20 mg PO DAILY [facility] Last Admin: 05/31/18 09:02 Dose: 20 mg Cholecalciferol (Vitamin D) 2,000 intlu PO DAILY [facility] Last Admin: 05/31/18 09:03 Dose: 2,000 intlu Folic Acid (Folic Acid) 1 mg PO DAILY [facility] Last Admin: 05/31/18 09:00 Dose: 1 mg Glipizide (Glucotrol Xl) 20 mg PO BID [facility] Last Admin: 05/31/18 09:01 Dose: 20 mg Ceftriaxone Sodium 1 gm/ (Sodium Chloride) 100 mls @ 100 mls/hr IVPB DAILY [facility]; Protocol Last Admin: 05/31/18 09:03 Dose: 100 mls/hr Azithromycin 500 mg/ Sodium (Chloride) 250 mls @ 250 mls/hr IVPB DAILY [facility]; Protocol Last Admin: 05/31/18 09:04 Dose: 250 mls/hr Insulin Human Lispro (Humalog) 0 units SC ACHS [facility]; Protocol Last Admin: 05/30/18 21:55 Dose: Not Given Losartan Potassium (Cozaar) 50 mg PO DAILY [facility] Last Admin: 05/28/18 09:20 Dose: Not Given Metformin HCl (Glucophage) 1,000 mg PO DIN [facility] Last Admin: 05/27/18 17:45 Dose: 1,000 mg Metformin HCl (Glucophage) 1,500 mg PO DAILY [facility] Last Admin: 05/28/18 09:17 Dose: 1,500 mg Methotrexate (Methotrexate) 15 mg PO QWK [facility] Metoprolol Tartrate (Lopressor) 12.5 mg PO BID [facility] Last Admin: 05/31/18 09:02 Dose: 12.5 mg Rivaroxaban (Xarelto) 20 mg PO DAILY [facility]; Protocol Last Admin: 05/31/18 09:03 Dose: 20 mg Trazodone HCl (Desyrel) 100 mg PO HS PRN PRN Reason: Sleep - Labs Labs: 05/31/18 05:05 05/31/18 05:05 PT 12.5 Seconds (9.8-13.1) 05/25/18 18:00 INR 1.1 05/25/18 18:00 APTT 30.5 Seconds (25.6-37.1) 05/26/18 08:15 - Constitutional Appears: Well, Non-toxic, No Acute Distress - Head Exam Head Exam: ATRAUMATIC, NORMAL INSPECTION, NORMOCEPHALIC - Eye Exam Eye Exam: EOMI, Normal appearance, PERRL Pupil Exam: NORMAL ACCOMODATION - ENT Exam ENT Exam: Mucous Membranes Moist - Neck Exam Neck Exam: Full ROM, Normal Inspection - Respiratory Exam Respiratory Exam: NORMAL BREATHING PATTERN - Extremities Exam Extremities Exam: Full ROM. absent: Calf Tenderness, Pedal Edema - Back Exam Back Exam: Full ROM - Neurological Exam Neurological Exam: Alert, Awake, CN II-XII Intact, Reflexes Normal Neuro motor strength exam: Left Upper Extremity: 5, Right Upper Extremity: 5, Left Lower Extremity: 5, Right Lower Extremity: 5 Additional comments: speech clear, fluid awake, alert no focal neuro deficits noted; no tremors follows all commands, confused at times but cooperative, calm, pleasant - Psychiatric Exam Psychiatric exam: Normal Affect, Normal Mood - Skin Skin Exam: Normal Color Assessment and Plan (1) Acute encephalopathy Assessment & Plan: Imaging reviewed: -Head MRA (05/30/18): Unremarkable MR angiography of the brain. -MRI Brain (05/30/18): No acute intracranial findings -ECHO (05/26/18): EF 60/65% -CT Head (05/27/18): No acute intracranial abnormality. Mild chronic microangi opathic changes and mild age-related global parenchymal volume loss. 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 Mr. Morales' recent imaging is negative for acute strokes. He does have active respiratory issues that could be contributing to his complaint on admission of confusion. Neurologically, he is stable and doing well. -MRA neck ordered; pt could not tolerate the exam. -Carotid and vertebral ultrasound ordered 05/30/18; still not done---will f/u with results once done. -Continue ASA and statin. -Continue PT/OT. -Continue neuro checks prn. -Continue current management of HTN, DM, A-fib and other risk factors for stroke. -Continue management and treatment for infectious illness and hypercapnia which could be causing the pt to be increasingly confused. -Notify neuro team of any acute changes in condition. Case discussed with Dr. Arellano Status: Acute
--- NOTE | 2018-05-31 13:23 | CP.PCM.PN ---
Subjective - Date & Time of Evaluation Date of Evaluation: 05/31/18 Time of Evaluation: 12:30 - Subjective Subjective: alert, oriented, follows commands Objective - Vital Signs/Intake and Output Vital Signs (last 24 hours): Temp Pulse Resp BP Pulse Ox 97.9 F 84 20 131/84 93 L 05/31/18 11:54 05/31/18 11:54 05/31/18 11:54 05/31/18 11:54 05/31/18 11:54 - Medications Medications: Current Medications Acetaminophen (Tylenol 325mg Tab) 650 mg PO Q4 PRN PRN Reason: Fever >100.4 F Last Admin: 05/29/18 05:24 Dose: 650 mg Albuterol/Ipratropium (Duoneb 3 Mg/0.5 Mg (3 Ml) Ud) 3 ml INH RQ4 PRN PRN Reason: Shortness of Breath Amiodarone HCl (Cordarone) 200 mg PO BID [facility] Last Admin: 05/31/18 09:01 Dose: 200 mg Artificial Tears (Artificial Tears) 1 drop OU QID [facility] Last Admin: 05/31/18 09:00 Dose: 1 drop Aspirin (Ecotrin) 81 mg PO DAILY [facility] Last Admin: 05/31/18 09:01 Dose: 81 mg Atorvastatin Calcium (Lipitor) 20 mg PO DAILY [facility] Last Admin: 05/31/18 09:02 Dose: 20 mg Cholecalciferol (Vitamin D) 2,000 intlu PO DAILY [facility] Last Admin: 05/31/18 09:03 Dose: 2,000 intlu Folic Acid (Folic Acid) 1 mg PO DAILY [facility] Last Admin: 05/31/18 09:00 Dose: 1 mg Glipizide (Glucotrol Xl) 20 mg PO BID [facility] Last Admin: 05/31/18 09:01 Dose: 20 mg Ceftriaxone Sodium 1 gm/ (Sodium Chloride) 100 mls @ 100 mls/hr IVPB DAILY [facility]; Protocol Last Admin: 05/31/18 09:03 Dose: 100 mls/hr Azithromycin 500 mg/ Sodium (Chloride) 250 mls @ 250 mls/hr IVPB DAILY [facility]; Protocol Last Admin: 05/31/18 09:04 Dose: 250 mls/hr Insulin Human Lispro (Humalog) 0 units SC ACHS [facility]; Protocol Last Admin: 05/30/18 21:55 Dose: Not Given Losartan Potassium (Cozaar) 50 mg PO DAILY [facility] Last Admin: 05/28/18 09:20 Dose: Not Given Metformin HCl (Glucophage) 1,000 mg PO DIN [facility] Last Admin: 05/27/18 17:45 Dose: 1,000 mg Metformin HCl (Glucophage) 1,500 mg PO DAILY [facility] Last Admin: 05/28/18 09:17 Dose: 1,500 mg Methotrexate (Methotrexate) 15 mg PO QWK [facility] Metoprolol Tartrate (Lopressor) 12.5 mg PO BID [facility] Last Admin: 05/31/18 09:02 Dose: 12.5 mg Rivaroxaban (Xarelto) 20 mg PO DAILY [facility]; Protocol Last Admin: 05/31/18 09:03 Dose: 20 mg Trazodone HCl (Desyrel) 100 mg PO HS PRN PRN Reason: Sleep - Labs Labs: 05/31/18 05:05 05/31/18 05:05 PT 12.5 Seconds (9.8-13.1) 05/25/18 18:00 INR 1.1 05/25/18 18:00 APTT 30.5 Seconds (25.6-37.1) 05/26/18 08:15 - Constitutional Appears: No Acute Distress - Head Exam Head Exam: NORMOCEPHALIC - Eye Exam Eye Exam: PERRL - ENT Exam ENT Exam: Normal Exam - Neck Exam Neck Exam: Normal Inspection - Respiratory Exam Respiratory Exam: Clear to Ausculation Bilateral - Cardiovascular Exam Cardiovascular Exam: REGULAR RHYTHM - GI/Abdominal Exam GI & Abdominal Exam: Soft, Normal Bowel Sounds - Extremities Exam Extremities Exam: Normal Inspection - Back Exam Back Exam: NORMAL INSPECTION - Neurological Exam Neurological Exam: Alert, CN II-XII Intact Additional comments: no focal motor/sensory deficit - Psychiatric Exam Psychiatric exam: Anxious - Skin Skin Exam: Warm Assessment and Plan (1) Status post fall Status: Acute (2) Weakness Status: Acute (3) Hyperglycemia Status: Acute (4) Diabetes mellitus Status: Chronic (5) Cough Status: Acute (6) COPD (chronic obstructive pulmonary disease) Status: Chronic (7) Lung nodules Status: Chronic (8) Arthritis Status: Chronic (9) Schizophrenia Status: Chronic - Assessment and Plan (Free Text) Plan: alert,ABG on BIPAP PCO2 improved,on NC now, neurological status improved, PT eval
--- NOTE | 2018-05-31 14:55 | CP.PCM.PN ---
Subjective - Date & Time of Evaluation Date of Evaluation: 05/31/18 Time of Evaluation: 08:00 - Subjective Subjective: 67 yo male w/ h/o HLD, HTN, Arthritis, DM Schizophrenia (vs Schizoaffective Disorder), presents w/ SOB, cough, white and bloody sputum. He has abnormal toxic metabolic encephalopathy with renal insufficiency and infectious process IV antibiotics renewed appears more comfortable awake alert afebrile NAD Objective - Vital Signs/Intake and Output Vital Signs (last 24 hours): Temp Pulse Resp BP Pulse Ox 97.9 F 84 20 131/84 93 L 05/31/18 11:54 05/31/18 11:54 05/31/18 11:54 05/31/18 11:54 05/31/18 11:54 - Medications Medications: Current Medications Acetaminophen (Tylenol 325mg Tab) 650 mg PO Q4 PRN PRN Reason: Fever >100.4 F Last Admin: 05/29/18 05:24 Dose: 650 mg Albuterol/Ipratropium (Duoneb 3 Mg/0.5 Mg (3 Ml) Ud) 3 ml INH RQ4 PRN PRN Reason: Shortness of Breath Amiodarone HCl (Cordarone) 200 mg PO BID [facility] Last Admin: 05/31/18 09:01 Dose: 200 mg Artificial Tears (Artificial Tears) 1 drop OU QID [facility] Last Admin: 05/31/18 13:38 Dose: 1 drop Aspirin (Ecotrin) 81 mg PO DAILY [facility] Last Admin: 05/31/18 09:01 Dose: 81 mg Atorvastatin Calcium (Lipitor) 20 mg PO DAILY [facility] Last Admin: 05/31/18 09:02 Dose: 20 mg Cholecalciferol (Vitamin D) 2,000 intlu PO DAILY [facility] Last Admin: 05/31/18 09:03 Dose: 2,000 intlu Folic Acid (Folic Acid) 1 mg PO DAILY [facility] Last Admin: 05/31/18 09:00 Dose: 1 mg Glipizide (Glucotrol Xl) 20 mg PO BID [facility] Last Admin: 05/31/18 09:01 Dose: 20 mg Ceftriaxone Sodium 1 gm/ (Sodium Chloride) 100 mls @ 100 mls/hr IVPB DAILY [facility]; Protocol Last Admin: 05/31/18 09:03 Dose: 100 mls/hr Azithromycin 500 mg/ Sodium (Chloride) 250 mls @ 250 mls/hr IVPB DAILY [facility]; Protocol Last Admin: 05/31/18 09:04 Dose: 250 mls/hr Insulin Human Lispro (Humalog) 0 units SC ACHS [facility]; Protocol Last Admin: 05/31/18 13:00 Dose: 2 units Losartan Potassium (Cozaar) 50 mg PO DAILY [facility] Last Admin: 05/28/18 09:20 Dose: Not Given Metformin HCl (Glucophage) 1,000 mg PO DIN [facility] Last Admin: 05/27/18 17:45 Dose: 1,000 mg Metformin HCl (Glucophage) 1,500 mg PO DAILY [facility] Last Admin: 05/28/18 09:17 Dose: 1,500 mg Methotrexate (Methotrexate) 15 mg PO QWK [facility] Metoprolol Tartrate (Lopressor) 12.5 mg PO BID [facility] Last Admin: 05/31/18 09:02 Dose: 12.5 mg Rivaroxaban (Xarelto) 20 mg PO DAILY [facility]; Protocol Last Admin: 05/31/18 09:03 Dose: 20 mg Trazodone HCl (Desyrel) 100 mg PO HS PRN PRN Reason: Sleep - Labs Labs: 05/31/18 05:05 05/31/18 05:05 PT 12.5 Seconds (9.8-13.1) 05/25/18 18:00 INR 1.1 05/25/18 18:00 APTT 30.5 Seconds (25.6-37.1) 05/26/18 08:15 - Constitutional Appears: Non-toxic, Chronically Ill - Head Exam Head Exam: NORMOCEPHALIC - Eye Exam Eye Exam: absent: Scleral icterus - ENT Exam ENT Exam: Mucous Membranes Dry - Neck Exam Neck Exam: absent: Lymphadenopathy - Respiratory Exam Respiratory Exam: Decreased Breath Sounds - Cardiovascular Exam Cardiovascular Exam: REGULAR RHYTHM - GI/Abdominal Exam GI & Abdominal Exam: Distended - Rectal Exam Rectal Exam: Deferred - Exam Exam: NORMAL INSPECTION - Extremities Exam Extremities Exam: absent: Pedal Edema - Back Exam Back Exam: absent: CVA tenderness (L), CVA tenderness (R) - Neurological Exam Neurological Exam: Alert, Awake, CN II-XII Intact, Oriented x3 - Psychiatric Exam Psychiatric exam: Depressed - Skin Skin Exam: Dry Assessment and Plan (1) Acute encephalopathy Status: Acute (2) CHF (congestive heart failure) Status: Acute (3) Cough Status: Acute (4) Febrile illness, acute Status: Acute (5) Status post fall Status: Acute (6) Diabetes mellitus Status: Chronic (7) CKD (chronic kidney disease) Status: Acute (8) Lung nodule Status: Acute (9) Lung nodule seen on imaging study Status: Acute - Assessment and Plan (Free Text) Assessment: 67 yo male w/ h/o RA HLD, HTN, Arthritis, DM Schizophrenia (vs Schizoaffective Disorder), presents w/ SOB, cough, white and bloody sputum. He has abnormal toxic metabolic encephalopathy with renal insufficiency and infectious process cultures so far negative Cont IV antibiotics as ordered discussed with Dr Albarado
--- NOTE | 2018-05-31 17:12 | US ---
Date of service: 05/31/2018 PROCEDURE: Duplex ultrasound of the carotid and vertebral arteries. HISTORY: dizziness; r/o acute cva COMPARISON: None available. TECHNIQUE: Grayscale and duplex Doppler evaluation of the cervical carotid and vertebral arteries were performed. The common carotid, carotid bifurcations and cervical ICA and proximal ECA were evaluated. The vertebral arteries were evaluated for gross patency and direction. FINDINGS: RIGHT CAROTID ARTERIES: Common Carotid Artery: Maximal flow velocity of 76.4 cm/s. Carotid Bifurcation: Intimal thickening is present Internal Carotid Artery:Heterogeneous plaque formation. Maximal flow velocity of 92.4 cm/s. External Carotid Artery (proximal branches): Maximal flow velocity of 98.2 cm/s. ICA/CCA Ratio: 1.4 LEFT CAROTID ARTERIES: Common Carotid Artery: Maximal flow velocity of 130.6 cm/s. Carotid Bifurcation: Intimal thickening is present Internal Carotid Artery:Heterogeneous plaque formation. Maximal flow velocity of 96.9 cm/s. External Carotid Artery (proximal branches): Maximal flow velocity of 74.9 cm/s. ICA/CCA Ratio: 1.7 VERTEBRAL ARTERIES: Right Vertebral Artery: Patent. Antegrade flow. Left Vertebral Artery: Patent. Antegrade flow. OTHER FINDINGS: Atherosclerotic calcification present. IMPRESSION: Right ICA degree of stenosis: Less than 50% Left ICA degree of stenosis: Less than 50% Reference Internal Carotid Artery (ICA) Peak Systolic Velocity (PSV) for above: 1. Less than 50% stenosis less than 125 cm/s peak systolic velocity 2. 50-69% stenosis 125-230cm/s peak systolic velocity 3. Greater than 70% but less than near occlusion greater than 230 cm/s peak systolic velocity
--- NOTE | 2018-05-31 22:06 | CP.PCM.PN ---
Subjective - Date & Time of Evaluation Date of Evaluation: 05/31/18 Time of Evaluation: 19:00 - Subjective Subjective: Much more alert today, off BIPAP since morning; tolerating diet; Objective - Vital Signs/Intake and Output Vital Signs (last 24 hours): Temp Pulse Resp BP Pulse Ox 98.3 F 67 17 144/77 94 L 05/31/18 19:49 05/31/18 19:49 05/31/18 19:49 05/31/18 19:49 05/31/18 19:49 Intake and Output: 05/31/18 06/01/18 18:59 06:59 Intake Total 1100 Output Total 875 Balance 225 - Medications Medications: Current Medications Acetaminophen (Tylenol 325mg Tab) 650 mg PO Q4 PRN PRN Reason: Fever >100.4 F Last Admin: 05/29/18 05:24 Dose: 650 mg Albuterol/Ipratropium (Duoneb 3 Mg/0.5 Mg (3 Ml) Ud) 3 ml INH RQ4 PRN PRN Reason: Shortness of Breath Amiodarone HCl (Cordarone) 200 mg PO BID [facility] Last Admin: 05/31/18 17:52 Dose: 200 mg Artificial Tears (Artificial Tears) 1 drop OU QID [facility] Last Admin: 05/31/18 21:32 Dose: 1 drop Aspirin (Ecotrin) 81 mg PO DAILY [facility] Last Admin: 05/31/18 09:01 Dose: 81 mg Atorvastatin Calcium (Lipitor) 20 mg PO DAILY [facility] Last Admin: 05/31/18 09:02 Dose: 20 mg Cholecalciferol (Vitamin D) 2,000 intlu PO DAILY [facility] Last Admin: 05/31/18 09:03 Dose: 2,000 intlu Folic Acid (Folic Acid) 1 mg PO DAILY [facility] Last Admin: 05/31/18 09:00 Dose: 1 mg Glipizide (Glucotrol Xl) 20 mg PO BID [facility] Last Admin: 05/31/18 17:52 Dose: 20 mg Ceftriaxone Sodium 1 gm/ (Sodium Chloride) 100 mls @ 100 mls/hr IVPB DAILY [facility]; Protocol Last Admin: 05/31/18 09:03 Dose: 100 mls/hr Azithromycin 500 mg/ Sodium (Chloride) 250 mls @ 250 mls/hr IVPB DAILY [facility]; Protocol Last Admin: 01/11/19 09:04 Dose: 250 mls/hr Insulin Human Lispro (Humalog) 0 units SC ACHS [facility]; Protocol Last Admin: 05/31/18 21:34 Dose: Not Given Losartan Potassium (Cozaar) 50 mg PO DAILY [facility] Last Admin: 05/28/18 09:20 Dose: Not Given Metformin HCl (Glucophage) 1,000 mg PO DIN [facility] Last Admin: 05/27/18 17:45 Dose: 1,000 mg Metformin HCl (Glucophage) 1,500 mg PO DAILY [facility] Last Admin: 05/28/18 09:17 Dose: 1,500 mg Methotrexate (Methotrexate) 15 mg PO QWK [facility] Metoprolol Tartrate (Lopressor) 12.5 mg PO BID [facility] Last Admin: 05/31/18 17:52 Dose: 12.5 mg Rivaroxaban (Xarelto) 20 mg PO DAILY [facility]; Protocol Last Admin: 05/31/18 09:03 Dose: 20 mg Trazodone HCl (Desyrel) 100 mg PO HS PRN PRN Reason: Sleep - Labs Labs: 05/31/18 05:05 05/31/18 05:05 PT 12.5 Seconds (9.8-13.1) 05/25/18 18:00 INR 1.1 05/25/18 18:00 APTT 30.5 Seconds (25.6-37.1) 05/26/18 08:15 - Constitutional Appears: Non-toxic, No Acute Distress - Eye Exam Eye Exam: Normal appearance - Respiratory Exam Respiratory Exam: Clear to Ausculation Bilateral. absent: Respiratory Distress Additional comments: tachypneic - Cardiovascular Exam Cardiovascular Exam: Irregular Rhythm - Extremities Exam Additional comments: no leg edema; - Neurological Exam Neurological Exam: Alert, Awake - Psychiatric Exam Psychiatric exam: absent: Agitated - Skin Skin Exam: Warm. absent: Cyanosis Assessment and Plan (1) Acute kidney injury Assessment & Plan: ATN from contrast injury, resolving; non-oliguric renal failure; stable volume and electroyte status; no need for IVF currently; will continue to monitor; Status: Acute (2) HTN (hypertension) Assessment & Plan: BP controlled on metoprolol only, continue same for now; Status: Chronic (3) Hyperpnea Assessment & Plan: Acute component resolved with BIPAP; does have compensatory metabolic alkalosis; should continue to monitor periodically especially if patient becomes somnolent again; Status: Acute
[2018-06-01] MEDS: Insulin Lispro (humaLOG) 100 Units/ml Inj SC SCH ×4 (06:44→22:14)
[2018-06-01 07:19] LABS: HEMOGLOBIN 12.5 g/dL (12.0-18.0); MEAN CORPUSCULAR HEMOGLOBIN 30.6 pg (27.0-31.0); MEAN CORPUSCULAR HGB CONC 33.7 g/dL (33.0-37.0); RBC 4.07 Mil/uL (4.40-5.90); RED CELL DISTRIBUTION WIDTH 13.7 % (11.5-14.5); WHITE BLOOD COUNT 4.8 K/uL (4.8-10.8)
[2018-06-01 07:49] LABS: BLOOD UREA NITROGEN 23 mg/dl (9-20); CALCIUM 8.7 mg/dL (8.4-10.2); GFR NON-AFRICAN AMERICAN > 60
[2018-06-01] MEDS: Artificial Tears Opht Soln OU SCH ×4 (09:48→22:12)
[2018-06-01] MEDS: GlipiZIDE 10 mg SR Tab PO SCH ×2 (09:49→16:25)
[2018-06-01] MEDS: Cholecalciferol 1,000 INTLU TAB PO SCH (09:55)
[2018-06-01] MEDS: Azithromycin 500 MG in Sodium Chloride 0.9% 250 ML IVPB SCH (09:56)
--- NOTE | 2018-06-01 16:44 | CP.PCM.PN ---
Subjective - Date & Time of Evaluation Date of Evaluation: 06/01/18 Time of Evaluation: 12:00 - Subjective Subjective: F/U S/P Fall, Generalized weakness. awake, alert, forgetul at times, no AD,eating well Objective - Vital Signs/Intake and Output Vital Signs (last 24 hours): Temp Pulse Resp BP Pulse Ox 97.8 F 66 18 149/79 97 06/01/18 15:46 06/01/18 16:27 06/01/18 15:46 06/01/18 16:27 06/01/18 15:46 - Medications Medications: Current Medications Acetaminophen (Tylenol 325mg Tab) 650 mg PO Q4 PRN PRN Reason: Fever >100.4 F Last Admin: 05/29/18 05:24 Dose: 650 mg Albuterol/Ipratropium (Duoneb 3 Mg/0.5 Mg (3 Ml) Ud) 3 ml INH RQ4 PRN PRN Reason: Shortness of Breath Amiodarone HCl (Cordarone) 200 mg PO BID [facility] Last Admin: 06/01/18 16:24 Dose: 200 mg Artificial Tears (Artificial Tears) 1 drop OU QID [facility] Last Admin: 06/01/18 16:24 Dose: 1 drop Aspirin (Ecotrin) 81 mg PO DAILY [facility] Last Admin: 06/01/18 09:49 Dose: 81 mg Atorvastatin Calcium (Lipitor) 20 mg PO DAILY [facility] Last Admin: 06/01/18 09:50 Dose: 20 mg Cholecalciferol (Vitamin D) 2,000 intlu PO DAILY [facility] Last Admin: 06/01/18 09:55 Dose: 2,000 intlu Folic Acid (Folic Acid) 1 mg PO DAILY [facility] Last Admin: 06/01/18 09:49 Dose: 1 mg Glipizide (Glucotrol Xl) 20 mg PO BID [facility] Last Admin: 06/01/18 16:25 Dose: 20 mg Ceftriaxone Sodium 1 gm/ (Sodium Chloride) 100 mls @ 100 mls/hr IVPB DAILY [facility]; Protocol Last Admin: 06/01/18 09:52 Dose: 100 mls/hr Azithromycin 500 mg/ Sodium (Chloride) 250 mls @ 250 mls/hr IVPB DAILY [facility]; Protocol Last Admin: 06/01/18 09:56 Dose: 250 mls/hr Insulin Human Lispro (Humalog) 0 units SC ACHS [facility]; Protocol Last Admin: 06/01/18 16:25 Dose: 2 units Losartan Potassium (Cozaar) 50 mg PO DAILY [facility] Last Admin: 05/28/18 09:20 Dose: Not Given Metformin HCl (Glucophage) 1,000 mg PO DIN [facility] Last Admin: 05/27/18 17:45 Dose: 1,000 mg Metformin HCl (Glucophage) 1,500 mg PO DAILY [facility] Last Admin: 05/28/18 09:17 Dose: 1,500 mg Methotrexate (Methotrexate) 15 mg PO QWK [facility] Metoprolol Tartrate (Lopressor) 12.5 mg PO BID [facility] Last Admin: 06/01/18 16:27 Dose: 12.5 mg Rivaroxaban (Xarelto) 20 mg PO DAILY [facility]; Protocol Last Admin: 06/01/18 09:55 Dose: 20 mg Trazodone HCl (Desyrel) 100 mg PO HS PRN PRN Reason: Sleep - Labs Labs: 06/01/18 04:00 06/01/18 06:45 PT 12.5 Seconds (9.8-13.1) 05/25/18 18:00 INR 1.1 05/25/18 18:00 APTT 30.5 Seconds (25.6-37.1) 05/26/18 08:15 - Constitutional Appears: No Acute Distress, Chronically Ill - Head Exam Head Exam: NORMAL INSPECTION - Eye Exam Eye Exam: PERRL - ENT Exam ENT Exam: Normal Exam - Neck Exam Neck Exam: Normal Inspection - Respiratory Exam Respiratory Exam: Decreased Breath Sounds (at bases), Rhonchi (scattered) - Cardiovascular Exam Cardiovascular Exam: Irregular Rhythm - GI/Abdominal Exam GI & Abdominal Exam: Soft, Normal Bowel Sounds - Exam Additional comments: Mena Cath - Extremities Exam Extremities Exam: Normal Inspection - Back Exam Back Exam: NORMAL INSPECTION - Neurological Exam Neurological Exam: Alert, Awake, Reflexes Normal Additional comments: No focal motor/sensory deficit, generalized weakness. - Psychiatric Exam Psychiatric exam: Depressed - Skin Skin Exam: Rash, Warm Assessment and Plan (1) Status post fall Status: Acute (2) Weakness Status: Acute (3) Hyperglycemia Status: Acute (4) Diabetes mellitus Status: Chronic (5) Cough Status: Acute (6) COPD (chronic obstructive pulmonary disease) Status: Chronic (7) Lung nodules Status: Chronic (8) Arthritis Status: Chronic (9) Schizophrenia Status: Chronic (10) A-fib Status: Chronic - Assessment and Plan (Free Text) Plan: continue DuoNeb,Glucophage, Humalog, Amiodarone, Lopressor, PAMELLA improved
--- NOTE | 2018-06-01 20:47 | CP.PCM.PN ---
Subjective - Date & Time of Evaluation Date of Evaluation: 06/01/18 Time of Evaluation: 15:00 - Subjective Subjective: Patient tolerating diet; some sob/cough; Objective - Vital Signs/Intake and Output Vital Signs (last 24 hours): Temp Pulse Resp BP Pulse Ox 97.7 F 61 18 153/79 H 92 L 06/01/18 20:08 06/01/18 20:08 06/01/18 20:08 06/01/18 20:08 06/01/18 20:08 Intake and Output: 06/01/18 06/02/18 18:59 06:59 Intake Total 1070 Output Total 1000 Balance 70 - Medications Medications: Current Medications Acetaminophen (Tylenol 325mg Tab) 650 mg PO Q4 PRN PRN Reason: Fever >100.4 F Last Admin: 05/29/18 05:24 Dose: 650 mg Albuterol/Ipratropium (Duoneb 3 Mg/0.5 Mg (3 Ml) Ud) 3 ml INH RQ4 PRN PRN Reason: Shortness of Breath Amiodarone HCl (Cordarone) 200 mg PO BID [facility] Last Admin: 06/01/18 16:24 Dose: 200 mg Artificial Tears (Artificial Tears) 1 drop OU QID [facility] Last Admin: 06/01/18 16:24 Dose: 1 drop Aspirin (Ecotrin) 81 mg PO DAILY [facility] Last Admin: 06/01/18 09:49 Dose: 81 mg Atorvastatin Calcium (Lipitor) 20 mg PO DAILY [facility] Last Admin: 06/01/18 09:50 Dose: 20 mg Cholecalciferol (Vitamin D) 2,000 intlu PO DAILY [facility] Last Admin: 06/01/18 09:55 Dose: 2,000 intlu Folic Acid (Folic Acid) 1 mg PO DAILY [facility] Last Admin: 06/01/18 09:49 Dose: 1 mg Glipizide (Glucotrol Xl) 20 mg PO BID [facility] Last Admin: 06/01/18 16:25 Dose: 20 mg Ceftriaxone Sodium 1 gm/ (Sodium Chloride) 100 mls @ 100 mls/hr IVPB DAILY [facility]; Protocol Last Admin: 06/01/18 09:52 Dose: 100 mls/hr Azithromycin 500 mg/ Sodium (Chloride) 250 mls @ 250 mls/hr IVPB DAILY [facility]; Protocol Last Admin: 06/01/18 09:56 Dose: 250 mls/hr Insulin Human Lispro (Humalog) 0 units SC ACHS [facility]; Protocol Last Admin: 06/01/18 16:25 Dose: 2 units Losartan Potassium (Cozaar) 50 mg PO DAILY [facility] Last Admin: 05/28/18 09:20 Dose: Not Given Metformin HCl (Glucophage) 1,000 mg PO DIN [facility] Last Admin: 05/27/18 17:45 Dose: 1,000 mg Metformin HCl (Glucophage) 1,500 mg PO DAILY [facility] Last Admin: 05/28/18 09:17 Dose: 1,500 mg Methotrexate (Methotrexate) 15 mg PO QWK [facility] Metoprolol Tartrate (Lopressor) 12.5 mg PO BID [facility] Last Admin: 06/01/18 16:27 Dose: 12.5 mg Rivaroxaban (Xarelto) 20 mg PO DAILY [facility]; Protocol Last Admin: 06/01/18 09:55 Dose: 20 mg Trazodone HCl (Desyrel) 100 mg PO HS PRN PRN Reason: Sleep - Labs Labs: 06/01/18 04:00 06/01/18 06:45 PT 12.5 Seconds (9.8-13.1) 05/25/18 18:00 INR 1.1 05/25/18 18:00 APTT 30.5 Seconds (25.6-37.1) 05/26/18 08:15 - Constitutional Appears: Non-toxic, No Acute Distress - Eye Exam Eye Exam: Normal appearance. absent: Scleral icterus - Respiratory Exam Respiratory Exam: Clear to Ausculation Bilateral. absent: Respiratory Distress - Cardiovascular Exam Cardiovascular Exam: absent: Gallop, Rubs - GI/Abdominal Exam GI & Abdominal Exam: Soft. absent: Distended, Tenderness - Extremities Exam Additional comments: no leg edema; - Neurological Exam Neurological Exam: Alert, Awake - Psychiatric Exam Psychiatric exam: Normal Mood. absent: Agitated - Skin Skin Exam: Warm. absent: Cyanosis Assessment and Plan (1) Acute kidney injury Assessment & Plan: Contrast induced nephropathy, resolving; stable volume and electrolyte status; -no need for IVF currently; -avoid nephrotoxic agents; -can restart metformin; Status: Acute (2) HTN (hypertension) Assessment & Plan: BP elevated, restarting losartan 50 mg daily; Status: Chronic (3) Hyperpnea Assessment & Plan: Now with compensatory metabolic alkalosis; should repeat blood gas at some point to see pCO2; otherwise, no longer somnolent; Status: Acute
[2018-06-02] MEDS: GlipiZIDE 10 mg SR Tab PO SCH ×2 (08:19→16:12)
[2018-06-02] MEDS: Artificial Tears Opht Soln OU SCH ×4 (08:21→21:13)
[2018-06-02] MEDS: Insulin Lispro (humaLOG) 100 Units/ml Inj SC SCH ×4 (08:23→21:15)
[2018-06-02] MEDS: Cholecalciferol 1,000 INTLU TAB PO SCH (08:24)
[2018-06-02] MEDS: Azithromycin 500 MG in Sodium Chloride 0.9% 250 ML IVPB SCH (09:06)
--- NOTE | 2018-06-02 13:12 | CP.PCM.PN ---
Subjective - Date & Time of Evaluation Date of Evaluation: 06/02/18 Time of Evaluation: 08:00 - Subjective Subjective: slow progress Objective - Vital Signs/Intake and Output Vital Signs (last 24 hours): Temp Pulse Resp BP Pulse Ox 97.6 F 64 20 147/75 97 06/02/18 12:38 06/02/18 12:38 06/02/18 12:38 06/02/18 12:38 06/02/18 12:38 - Medications Medications: Current Medications Acetaminophen (Tylenol 325mg Tab) 650 mg PO Q4 PRN PRN Reason: Fever >100.4 F Last Admin: 05/29/18 05:24 Dose: 650 mg Albuterol/Ipratropium (Duoneb 3 Mg/0.5 Mg (3 Ml) Ud) 3 ml INH RQ4 PRN PRN Reason: Shortness of Breath Amiodarone HCl (Cordarone) 200 mg PO BID [facility] Last Admin: 06/02/18 08:22 Dose: 200 mg Artificial Tears (Artificial Tears) 1 drop OU QID [facility] Last Admin: 06/02/18 08:21 Dose: 1 drop Aspirin (Ecotrin) 81 mg PO DAILY [facility] Last Admin: 06/02/18 08:23 Dose: 81 mg Atorvastatin Calcium (Lipitor) 20 mg PO DAILY [facility] Last Admin: 06/02/18 08:25 Dose: 20 mg Cholecalciferol (Vitamin D) 2,000 intlu PO DAILY [facility] Last Admin: 06/02/18 08:24 Dose: 2,000 intlu Folic Acid (Folic Acid) 1 mg PO DAILY [facility] Last Admin: 06/02/18 08:19 Dose: 1 mg Glipizide (Glucotrol Xl) 20 mg PO BID [facility] Last Admin: 06/02/18 08:19 Dose: 20 mg Ceftriaxone Sodium 1 gm/ (Sodium Chloride) 100 mls @ 100 mls/hr IVPB DAILY [facility]; Protocol Last Admin: 06/02/18 09:06 Dose: 100 mls/hr Azithromycin 500 mg/ Sodium (Chloride) 250 mls @ 250 mls/hr IVPB DAILY [facility]; Protocol Last Admin: 06/02/18 09:06 Dose: 250 mls/hr Insulin Human Lispro (Humalog) 0 units SC ACHS [facility]; Protocol Last Admin: 06/02/18 08:23 Dose: Not Given Losartan Potassium (Cozaar) 50 mg PO DAILY [facility] Last Admin: 06/02/18 08:21 Dose: 50 mg Metformin HCl (Glucophage) 1,000 mg PO DIN [facility] Last Admin: 05/27/18 17:45 Dose: 1,000 mg Metformin HCl (Glucophage) 1,500 mg PO DAILY [facility] Last Admin: 05/28/18 09:17 Dose: 1,500 mg Methotrexate (Methotrexate) 15 mg PO QWK [facility] Metoprolol Tartrate (Lopressor) 12.5 mg PO BID [facility] Last Admin: 06/02/18 08:24 Dose: 12.5 mg Rivaroxaban (Xarelto) 20 mg PO DAILY [facility]; Protocol Last Admin: 06/02/18 08:19 Dose: 20 mg Trazodone HCl (Desyrel) 100 mg PO HS PRN PRN Reason: Sleep - Labs Labs: 06/01/18 04:00 06/01/18 06:45 PT 12.5 Seconds (9.8-13.1) 05/25/18 18:00 INR 1.1 05/25/18 18:00 APTT 30.5 Seconds (25.6-37.1) 05/26/18 08:15 - Constitutional Appears: Non-toxic, Chronically Ill - Head Exam Head Exam: NORMOCEPHALIC - Eye Exam Eye Exam: absent: Scleral icterus - ENT Exam ENT Exam: Mucous Membranes Dry - Neck Exam Neck Exam: absent: Lymphadenopathy - Respiratory Exam Respiratory Exam: Decreased Breath Sounds - Cardiovascular Exam Cardiovascular Exam: REGULAR RHYTHM - GI/Abdominal Exam GI & Abdominal Exam: Distended, Soft. absent: Tenderness - Rectal Exam Rectal Exam: Deferred - Exam Exam: NORMAL INSPECTION - Extremities Exam Extremities Exam: Pedal Edema - Back Exam Back Exam: absent: CVA tenderness (L), CVA tenderness (R) - Neurological Exam Neurological Exam: Alert, Awake, Oriented x3 - Psychiatric Exam Psychiatric exam: Normal Mood - Skin Skin Exam: Dry Assessment and Plan (1) Acute encephalopathy Status: Acute (2) CHF (congestive heart failure) Status: Acute (3) Cough Status: Acute (4) Febrile illness, acute Status: Acute (5) Status post fall Status: Acute (6) Diabetes mellitus Status: Chronic (7) CKD (chronic kidney disease) Status: Acute (8) Lung nodule Status: Acute (9) Lung nodule seen on imaging study Status: Acute - Assessment and Plan (Free Text) Assessment: cont rx as per Dr Albarado
--- NOTE | 2018-06-02 17:00 | CP.PCM.PN ---
Subjective - Date & Time of Evaluation Date of Evaluation: 06/02/18 Time of Evaluation: 13:10 - Subjective Subjective: F/U S/P Fall, generalized weakness awake, alert, forgetful at times,no SOB, no C/P Objective - Vital Signs/Intake and Output Vital Signs (last 24 hours): Temp Pulse Resp BP Pulse Ox 97.6 F 60 20 147/81 96 06/02/18 15:39 06/02/18 16:14 06/02/18 15:39 06/02/18 16:14 06/02/18 15:39 - Medications Medications: Current Medications Acetaminophen (Tylenol 325mg Tab) 650 mg PO Q4 PRN PRN Reason: Fever >100.4 F Last Admin: 05/29/18 05:24 Dose: 650 mg Albuterol/Ipratropium (Duoneb 3 Mg/0.5 Mg (3 Ml) Ud) 3 ml INH RQ4 PRN PRN Reason: Shortness of Breath Amiodarone HCl (Cordarone) 200 mg PO BID [facility] Last Admin: 06/02/18 16:11 Dose: 200 mg Artificial Tears (Artificial Tears) 1 drop OU QID [facility] Last Admin: 06/02/18 16:11 Dose: 1 drop Aspirin (Ecotrin) 81 mg PO DAILY [facility] Last Admin: 06/02/18 08:23 Dose: 81 mg Atorvastatin Calcium (Lipitor) 20 mg PO DAILY [facility] Last Admin: 06/02/18 08:25 Dose: 20 mg Cholecalciferol (Vitamin D) 2,000 intlu PO DAILY [facility] Last Admin: 06/02/18 08:24 Dose: 2,000 intlu Folic Acid (Folic Acid) 1 mg PO DAILY [facility] Last Admin: 06/02/18 08:19 Dose: 1 mg Glipizide (Glucotrol Xl) 20 mg PO BID [facility] Last Admin: 06/02/18 16:12 Dose: 20 mg Ceftriaxone Sodium 1 gm/ (Sodium Chloride) 100 mls @ 100 mls/hr IVPB DAILY [facility]; Protocol Last Admin: 06/02/18 09:06 Dose: 100 mls/hr Azithromycin 500 mg/ Sodium (Chloride) 250 mls @ 250 mls/hr IVPB DAILY [facility]; Protocol Last Admin: 06/02/18 09:06 Dose: 250 mls/hr Insulin Human Lispro (Humalog) 0 units SC ACHS [facility]; Protocol Last Admin: 06/02/18 16:12 Dose: 4 units Losartan Potassium (Cozaar) 50 mg PO DAILY [facility] Last Admin: 06/02/18 08:21 Dose: 50 mg Metformin HCl (Glucophage) 1,000 mg PO DIN [facility] Last Admin: 05/27/18 17:45 Dose: 1,000 mg Metformin HCl (Glucophage) 1,500 mg PO DAILY [facility] Last Admin: 05/28/18 09:17 Dose: 1,500 mg Methotrexate (Methotrexate) 15 mg PO QWK [facility] Metoprolol Tartrate (Lopressor) 12.5 mg PO BID [facility] Last Admin: 06/02/18 16:14 Dose: 12.5 mg Rivaroxaban (Xarelto) 20 mg PO DAILY [facility]; Protocol Last Admin: 06/02/18 08:19 Dose: 20 mg Trazodone HCl (Desyrel) 100 mg PO HS PRN PRN Reason: Sleep - Labs Labs: 06/01/18 04:00 06/01/18 06:45 PT 12.5 Seconds (9.8-13.1) 05/25/18 18:00 INR 1.1 05/25/18 18:00 APTT 30.5 Seconds (25.6-37.1) 05/26/18 08:15 - Constitutional Appears: No Acute Distress, Confused - Head Exam Head Exam: NORMAL INSPECTION - Eye Exam Eye Exam: PERRL - ENT Exam ENT Exam: Normal Exam - Neck Exam Neck Exam: Normal Inspection - Respiratory Exam Respiratory Exam: Decreased Breath Sounds (at bases), Rhonchi (scattered) - Cardiovascular Exam Cardiovascular Exam: Irregular Rhythm - GI/Abdominal Exam GI & Abdominal Exam: Soft, Normal Bowel Sounds - Exam Additional comments: Mena Cath - Extremities Exam Extremities Exam: Normal Inspection - Back Exam Back Exam: NORMAL INSPECTION - Neurological Exam Neurological Exam: Awake, Reflexes Normal Additional comments: No focal motor/sensory deficit, generalized weakness - Psychiatric Exam Psychiatric exam: Depressed - Skin Skin Exam: Rash, Warm Assessment and Plan (1) Status post fall Status: Acute (2) Weakness Status: Acute (3) Hyperglycemia Status: Acute (4) Diabetes mellitus Status: Chronic (5) Cough Status: Acute (6) COPD (chronic obstructive pulmonary disease) Status: Chronic (7) Lung nodules Status: Chronic (8) Arthritis Status: Chronic (9) Schizophrenia Status: Chronic (10) A-fib Status: Acute - Assessment and Plan (Free Text) Plan: periods of Bradycardia, f/u ECHO , Cardiac consult, PAMELLA improved, BS stable, PT recommended DOMINIC
[2018-06-03] MEDS: Artificial Tears Opht Soln OU SCH ×4 (09:09→21:53)
[2018-06-03] MEDS: GlipiZIDE 10 mg SR Tab PO SCH ×2 (09:11→17:28)
[2018-06-03] MEDS: Insulin Lispro (humaLOG) 100 Units/ml Inj SC SCH ×4 (09:12→21:53)
[2018-06-03] MEDS: Cholecalciferol 1,000 INTLU TAB PO SCH (09:14)
[2018-06-03 09:43] LABS: BASO # 0.1 K/uL (0.0-0.2); EOS # 0.4 K/uL (0.0-0.7); EOS % 7.5 % (0.0-4.0); HEMOGLOBIN 12.9 g/dL (12.0-18.0); LYMPH # 1.8 K/uL (1.0-4.3); LYMPH % 30.6 % (20.0-40.0); MEAN CELL VOLUME 92.1 fl (80.0-94.0); MEAN CORPUSCULAR HEMOGLOBIN 30.3 pg (27.0-31.0); MEAN CORPUSCULAR HGB CONC 32.9 g/dL (33.0-37.0); MEAN PLATELET VOLUME 7.7 fl (7.2-11.7); MONO # 0.6 K/uL (0.0-0.8); MONO % 9.3 % (0.0-10.0); NEUT # 3.1 K/uL (1.8-7.0); NEUT % 51.6 % (50.0-75.0); NRBC % 0.1 % (0.0-0.0); RBC 4.26 Mil/uL (4.40-5.90); RED CELL DISTRIBUTION WIDTH 13.3 % (11.5-14.5); WHITE BLOOD COUNT 5.9 K/uL (4.8-10.8)
[2018-06-03 09:55] LABS: BLOOD UREA NITROGEN 9 mg/dl (9-20); GFR NON-AFRICAN AMERICAN > 60
[2018-06-03 09:56] LABS: ALB/GLOB RATIO 0.9 (1.0-2.1); ALBUMIN 3.5 g/dL (3.5-5.0); ALT/SGPT 42 U/L (21-72); AST/SGOT 42 U/L (17-59); CALCIUM 8.9 mg/dL (8.4-10.2)
--- NOTE | 2018-06-03 09:57 | CP.PCM.CON ---
History of Present Illness - History of Present Illness History of Present Illness: 67 yo male presents w/ SOB, cough, white and bloody sputum. Patient is a poor historian at this time. Patient denies chest pain or abdominal pain A CT head was done which revealed chronic ischemic changes Cardiology consult called for Bradycardia Pt denies dizziness; palpitations; chest pain PMH: CAD - cath in 2013 with 1 stent HLD, HTN, Arthritis, DM COPD EKG: Atrail Flutter @ 72 BPM ECHO: normal EF : 60-65% Telemetry: HR 60 - 80 BPM Pt is on Metoprolol and Amiodarone Past Patient History - Infectious Disease Hx of Infectious Diseases: None - Past Medical History & Family History Past Medical History?: Yes - Past Social History Smoking Status: Former Smoker Alcohol: None Drugs: Denies Home Situation {Lives}: Alone - CARDIAC Hx Cardiac Disorders: Yes (CAD, Stent x1) Hx Hypertension: Yes - PULMONARY Hx Respiratory Disorders: Yes Hx Sleep Apnea: Yes Other/Comment: CPAP AT NIGHT - NEUROLOGICAL Hx Neurological Disorder: Yes Hx Alzheimer's Disease: Yes Hx Dementia: Yes Hx Dizziness: Yes - HEENT Hx HEENT Problems: No Other/Comment: left ear hard of hearing - RENAL Hx Chronic Kidney Disease: No - ENDOCRINE/METABOLIC Hx Endocrine Disorders: Yes Hx Diabetes Mellitus Type 2: Yes - HEMATOLOGICAL/ONCOLOGICAL Hx Blood Disorders: No Hx Human Immunodeficiency Virus (HIV): No - INTEGUMENTARY Hx Dermatological Problems: No - MUSCULOSKELETAL/RHEUMATOLOGICAL Hx Musculoskeletal Disorders: Yes Hx Arthritis: Yes - GASTROINTESTINAL Hx Gastrointestinal Disorders: No - GENITOURINARY/GYNECOLOGICAL Hx Genitourinary Disorders: No - PSYCHIATRIC Hx Psychophysiologic Disorder: Yes Hx Depression: Yes - SURGICAL HISTORY Hx Surgeries: Yes Hx Coronary Stent: Yes (X1) - ANESTHESIA Hx Anesthesia: Yes Hx Anesthesia Reactions: No Hx Malignant Hyperthermia: No Meds Allergies/Adverse Reactions: Allergies Allergy/AdvReac Type Severity Reaction Status Date / Time No Known Allergies Allergy Verified 01/02/17 12:24 - Medications Medications: Current Medications Acetaminophen (Tylenol 325mg Tab) 650 mg PO Q4 PRN PRN Reason: Fever >100.4 F Last Admin: 05/29/18 05:24 Dose: 650 mg Albuterol/Ipratropium (Duoneb 3 Mg/0.5 Mg (3 Ml) Ud) 3 ml INH RQ4 PRN PRN Reason: Shortness of Breath Amiodarone HCl (Cordarone) 200 mg PO BID [facility] Last Admin: 06/03/18 09:12 Dose: 200 mg Artificial Tears (Artificial Tears) 1 drop OU QID [facility] Last Admin: 06/03/18 09:09 Dose: 1 drop Aspirin (Ecotrin) 81 mg PO DAILY [facility] Last Admin: 06/03/18 09:10 Dose: 81 mg Atorvastatin Calcium (Lipitor) 20 mg PO DAILY [facility] Last Admin: 06/03/18 09:12 Dose: 20 mg Cholecalciferol (Vitamin D) 2,000 intlu PO DAILY [facility] Last Admin: 06/03/18 09:14 Dose: 2,000 intlu Folic Acid (Folic Acid) 1 mg PO DAILY [facility] Last Admin: 06/03/18 09:11 Dose: 1 mg Glipizide (Glucotrol Xl) 20 mg PO BID [facility] Last Admin: 06/03/18 09:11 Dose: 20 mg Insulin Human Lispro (Humalog) 0 units SC [facility]; Protocol Last Admin: 06/03/18 09:12 Dose: Not Given Losartan Potassium (Cozaar) 50 mg PO DAILY [facility] Last Admin: 06/03/18 09:10 Dose: 50 mg Metformin HCl (Glucophage) 1,000 mg PO DIN [facility] Last Admin: 05/27/18 17:45 Dose: 1,000 mg Metformin HCl (Glucophage) 1,500 mg PO DAILY [facility] Last Admin: 05/28/18 09:17 Dose: 1,500 mg Methotrexate (Methotrexate) 15 mg PO QWK [facility] Metoprolol Tartrate (Lopressor) 12.5 mg PO BID [facility] Last Admin: 06/03/18 09:13 Dose: Not Given Rivaroxaban (Xarelto) 20 mg PO DAILY [facility]; Protocol Last Admin: 06/03/18 09:15 Dose: 20 mg Trazodone HCl (Desyrel) 100 mg PO PRN PRN Reason: Sleep Physical Exam - Constitutional Appears: Well - Head Exam Head Exam: NORMAL INSPECTION - Eye Exam Eye Exam: Normal appearance - ENT Exam ENT Exam: Normal Exam - Respiratory Exam Respiratory Exam: NORMAL BREATHING PATTERN - Cardiovascular Exam Cardiovascular Exam: REGULAR RHYTHM Results - Vital Signs Recent Vital Signs: Last Vital Signs Temp 98.3 F 06/03/18 08:18 Pulse 72 06/03/18 08:18 Resp 20 06/03/18 08:18 BP 169/95 H 06/03/18 08:18 Pulse Ox 95 06/03/18 08:18 - Labs Result Diagrams: 06/03/18 09:20 06/03/18 09:20 Labs: Laboratory Results - last 24 hr 06/02/18 06/02/18 06/03/18 10:51 21:13 09:20 Sodium 141 Potassium 4.1 Chloride 104 Carbon Dioxide 30 Anion Gap 11 BUN 9 Creatinine 0.9 Est GFR ( Amer) > 60 Est GFR (Non-Af Amer) > 60 POC Glucose (mg/dL) 197 H 191 H Random Glucose 120 H Calcium 8.9 Phosphorus 2.6 Magnesium 1.6 AST 42 ALT 42 Alkaline Phosphatase 64 Total Protein 7.3 Albumin 3.5 Globulin 3.8 Albumin/Globulin Ratio 0.9 L Assessment & Plan (1) HTN (hypertension) Status: Chronic (2) Weakness Status: Acute Priority: High (3) Arthritis Status: Chronic Priority: Medium (4) COPD (chronic obstructive pulmonary disease) Status: Chronic Priority: Medium (5) Schizophrenia Status: Chronic Priority: Medium (6) History of heart artery stent Assessment and Plan: Pt appears stable at this time if Bradycardia recurs would d/c metoprolol Status: Acute
--- NOTE | 2018-06-03 11:15 | CP.PCM.PN ---
<Whit Patel - Last Filed: 06/03/18 11:50> Subjective - Date & Time of Evaluation Date of Evaluation: 06/03/18 Time of Evaluation: 11:14 - Subjective Subjective: Neurology Follow-Up Note: Mr. Morales was evaluated this morning at bedside. Friend at bedside. Today he complains of a slight h/a but states it is tolerable and does not want any pain reliever. Otherwise, he states that he feels good. He denies dizziness, visual changes, chest pain, palpitations, sob, cough, n/v/d, fatigue. Objective - Vital Signs/Intake and Output Vital Signs (last 24 hours): Temp Pulse Resp BP Pulse Ox 98.3 F 72 20 169/95 H 95 06/03/18 08:18 06/03/18 08:18 06/03/18 08:18 06/03/18 08:18 06/03/18 08:18 - Medications Medications: Current Medications Acetaminophen (Tylenol 325mg Tab) 650 mg PO Q4 PRN PRN Reason: Fever >100.4 F Last Admin: 05/29/18 05:24 Dose: 650 mg Albuterol/Ipratropium (Duoneb 3 Mg/0.5 Mg (3 Ml) Ud) 3 ml INH RQ4 PRN PRN Reason: Shortness of Breath Amiodarone HCl (Cordarone) 200 mg PO BID [facility] Last Admin: 06/03/18 09:12 Dose: 200 mg Artificial Tears (Artificial Tears) 1 drop OU QID [facility] Last Admin: 06/03/18 09:09 Dose: 1 drop Aspirin (Ecotrin) 81 mg PO DAILY [facility] Last Admin: 06/03/18 09:10 Dose: 81 mg Atorvastatin Calcium (Lipitor) 20 mg PO DAILY [facility] Last Admin: 06/03/18 09:12 Dose: 20 mg Cholecalciferol (Vitamin D) 2,000 intlu PO DAILY [facility] Last Admin: 06/03/18 09:14 Dose: 2,000 intlu Folic Acid (Folic Acid) 1 mg PO DAILY [facility] Last Admin: 06/03/18 09:11 Dose: 1 mg Glipizide (Glucotrol Xl) 20 mg PO BID [facility] Last Admin: 06/03/18 09:11 Dose: 20 mg Insulin Human Lispro (Humalog) 0 units SC [facility]; Protocol Last Admin: 06/03/18 09:12 Dose: Not Given Losartan Potassium (Cozaar) 50 mg PO DAILY [facility] Last Admin: 06/03/18 09:10 Dose: 50 mg Metformin HCl (Glucophage) 1,000 mg PO DIN [facility] Last Admin: 05/27/18 17:45 Dose: 1,000 mg Metformin HCl (Glucophage) 1,500 mg PO DAILY [facility] Last Admin: 05/28/18 09:17 Dose: 1,500 mg Methotrexate (Methotrexate) 15 mg PO QWK [facility] Metoprolol Tartrate (Lopressor) 12.5 mg PO BID [facility] Last Admin: 06/03/18 09:13 Dose: Not Given Rivaroxaban (Xarelto) 20 mg PO DAILY [facility]; Protocol Last Admin: 06/03/18 09:15 Dose: 20 mg Trazodone HCl (Desyrel) 100 mg PO HS PRN PRN Reason: Sleep - Labs Labs: 06/03/18 09:20 06/03/18 09:20 PT 12.5 Seconds (9.8-13.1) 05/25/18 18:00 INR 1.1 05/25/18 18:00 APTT 30.5 Seconds (25.6-37.1) 05/26/18 08:15 - Constitutional Appears: Well, Non-toxic, No Acute Distress - Head Exam Head Exam: ATRAUMATIC, NORMAL INSPECTION, NORMOCEPHALIC - Eye Exam Eye Exam: EOMI, Normal appearance, PERRL Pupil Exam: NORMAL ACCOMODATION, PERRL - ENT Exam ENT Exam: Mucous Membranes Moist - Neck Exam Neck Exam: Full ROM, Normal Inspection - Respiratory Exam Respiratory Exam: NORMAL BREATHING PATTERN - GI/Abdominal Exam Additional comments: obese - Exam Additional comments: [place] cath in place - Extremities Exam Extremities Exam: Full ROM. absent: Calf Tenderness, Pedal Edema - Back Exam Back Exam: Full ROM, NORMAL INSPECTION - Neurological Exam Neurological Exam: Alert, Awake, CN II-XII Intact, Oriented x3, Reflexes Normal Neuro motor strength exam: Left Upper Extremity: 5, Right Upper Extremity: 5, Left Lower Extremity: 5, Right Lower Extremity: 5 Additional comments: speech clear, fluid awake, alert no focal neuro deficits noted; no tremors follows all commands - Psychiatric Exam Psychiatric exam: Normal Affect, Normal Mood - Skin Skin Exam: Normal Color Assessment and Plan (1) Acute encephalopathy Assessment & Plan: Imaging reviewed: -Carotid and Vertebral U/S (05/31/18): VERTEBRAL ARTERIES: Right Vertebral Artery: Patent. Antegrade flow. Left Vertebral Artery: Patent. Antegrade flow. Right ICA degree of stenosis: Less than 50% Left ICA degree of stenosis: Less than 50% -Head MRA (05/30/18): Unremarkable MR angiography of the brain. -MRI Brain (05/30/18): No acute intracranial findings -ECHO (05/26/18): EF 60/65% -CT Head (05/27/18): No acute intracranial abnormality. Mild chronic microangiopathic changes and mild age-related global parenchymal volume loss. 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 Mr. Morales' stroke w/u in negative for acute strokes. He was being treated last week for acute respiratory issues that may have caused his complaint on admission of confusion. Neurologically, he is improved and continues to do well. -Continue ASA and statin; on Xarelto for afib. -Continue PT/OT. -Continue neuro checks prn. -Continue current management of HTN, DM, A-fib and other risk factors for stroke. -Continue management and treatment for infectious illness. -Notify neuro team of any acute changes in condition. Thank you for allowing us to participate in this pt's care. Reconsult prn. Case discussed with Dr. Morocho Status: Acute <Humphrey Albarado - Last Filed: 06/04/18 10:41> Objective - Vital Signs/Intake and Output Vital Signs (last 24 hours): Temp Pulse Resp BP Pulse Ox 97.5 F L 66 20 120/71 95 06/04/18 07:47 06/04/18 08:55 06/04/18 07:47 06/04/18 08:55 06/04/18 07:47 - Medications Medications: Current Medications Acetaminophen (Tylenol 325mg Tab) 650 mg PO Q4 PRN PRN Reason: Fever >100.4 F Last Admin: 05/29/18 05:24 Dose: 650 mg Albuterol/Ipratropium (Duoneb 3 Mg/0.5 Mg (3 Ml) Ud) 3 ml INH RQ4 PRN PRN Reason: Shortness of Breath Amiodarone HCl (Cordarone) 200 mg PO BID [facility] Last Admin: 06/04/18 08:55 Dose: 200 mg Artificial Tears (Artificial Tears) 1 drop OU QID [facility] Last Admin: 06/04/18 08:54 Dose: 1 drop Aspirin (Ecotrin) 81 mg PO DAILY [facility] Last Admin: 06/04/18 08:56 Dose: 81 mg Atorvastatin Calcium (Lipitor) 20 mg PO DAILY [facility] Last Admin: 06/04/18 09:00 Dose: 20 mg Cholecalciferol (Vitamin D) 2,000 intlu PO DAILY [facility] Last Admin: 06/04/18 08:58 Dose: 2,000 intlu Folic Acid (Folic Acid) 1 mg PO DAILY [facility] Last Admin: 06/04/18 08:56 Dose: 1 mg Glipizide (Glucotrol Xl) 20 mg PO BID [facility] Last Admin: 06/04/18 09:00 Dose: 20 mg Insulin Human Lispro (Humalog) 0 units SC [facility]; Protocol Last Admin: 06/04/18 08:59 Dose: 2 units Losartan Potassium (Cozaar) 50 mg PO DAILY [facility] Last Admin: 06/04/18 08:56 Dose: 50 mg Metformin HCl (Glucophage) 1,000 mg PO DIN [facility] Last Admin: 05/27/18 17:45 Dose: 1,000 mg Metformin HCl (Glucophage) 1,500 mg PO DAILY [facility] Last Admin: 05/28/18 09:17 Dose: 1,500 mg Methotrexate (Methotrexate) 15 mg PO QWK [facility] Metoprolol Tartrate (Lopressor) 12.5 mg PO BID [facility] Last Admin: 06/04/18 08:58 Dose: Not Given Rivaroxaban (Xarelto) 20 mg PO DAILY [facility]; Protocol Last Admin: 06/04/18 09:00 Dose: 20 mg Trazodone HCl (Desyrel) 100 mg PO HS PRN PRN Reason: Sleep - Labs Labs: 06/03/18 09:20 06/03/18 09:20 PT 12.5 Seconds (9.8-13.1) 05/25/18 18:00 INR 1.1 05/25/18 18:00 APTT 30.5 Seconds (25.6-37.1) 05/26/18 08:15 Assessment and Plan (1) Status post fall Status: Acute (2) Weakness Status: Acute (3) Hyperglycemia Status: Acute (4) Diabetes mellitus Status: Chronic (5) Cough Status: Acute (6) COPD (chronic obstructive pulmonary disease) Status: Chronic (7) Lung nodules Status: Chronic (8) Arthritis Status: Chronic (9) Schizophrenia Status: Chronic (10) Acute kidney injury Status: Resolved
--- NOTE | 2018-06-03 12:23 | RAD ---
Date of service: 06/03/2018 HISTORY: f/u COMPARISON: Chest radiographs 05/29/2018. FINDINGS: LUNGS: Inspiratory volume is significantly improved bilaterally in the interval. No active pulmonary disease. PLEURA: No significant pleural effusion identified, no pneumothorax apparent. CARDIOVASCULAR: No aortic atherosclerotic calcification present. Normal cardiac size. No pulmonary vascular congestion. OSSEOUS STRUCTURES: No significant abnormalities. VISUALIZED UPPER ABDOMEN: Normal. OTHER FINDINGS: None. IMPRESSION: No interval acute cardiopulmonary disease appreciated. Improved inspiratory volume appreciated bilaterally.
--- NOTE | 2018-06-03 16:58 | CP.PCM.PN ---
Subjective - Date & Time of Evaluation Date of Evaluation: 06/03/18 Time of Evaluation: 12:50 - Subjective Subjective: F/U S/P Fall, weakness. unsteady gait with walker and PT help, tolerating diet well Objective - Vital Signs/Intake and Output Vital Signs (last 24 hours): Temp Pulse Resp BP Pulse Ox 98.2 F 74 16 138/81 95 06/03/18 15:56 06/03/18 15:56 06/03/18 15:56 06/03/18 15:56 06/03/18 15:56 - Medications Medications: Current Medications Acetaminophen (Tylenol 325mg Tab) 650 mg PO Q4 PRN PRN Reason: Fever >100.4 F Last Admin: 05/29/18 05:24 Dose: 650 mg Albuterol/Ipratropium (Duoneb 3 Mg/0.5 Mg (3 Ml) Ud) 3 ml INH RQ4 PRN PRN Reason: Shortness of Breath Amiodarone HCl (Cordarone) 200 mg PO BID [facility] Last Admin: 06/03/18 09:12 Dose: 200 mg Artificial Tears (Artificial Tears) 1 drop OU QID [facility] Last Admin: 06/03/18 09:09 Dose: 1 drop Aspirin (Ecotrin) 81 mg PO DAILY [facility] Last Admin: 06/03/18 09:10 Dose: 81 mg Atorvastatin Calcium (Lipitor) 20 mg PO DAILY [facility] Last Admin: 06/03/18 09:12 Dose: 20 mg Cholecalciferol (Vitamin D) 2,000 intlu PO DAILY [facility] Last Admin: 06/03/18 09:14 Dose: 2,000 intlu Folic Acid (Folic Acid) 1 mg PO DAILY [facility] Last Admin: 06/03/18 09:11 Dose: 1 mg Glipizide (Glucotrol Xl) 20 mg PO BID [facility] Last Admin: 06/03/18 09:11 Dose: 20 mg Insulin Human Lispro (Humalog) 0 units SC [facility]; Protocol Last Admin: 06/03/18 14:39 Dose: Not Given Losartan Potassium (Cozaar) 50 mg PO DAILY [facility] Last Admin: 06/03/18 09:10 Dose: 50 mg Metformin HCl (Glucophage) 1,000 mg PO DIN [facility] Last Admin: 05/27/18 17:45 Dose: 1,000 mg Metformin HCl (Glucophage) 1,500 mg PO DAILY [facility] Last Admin: 05/28/18 09:17 Dose: 1,500 mg Methotrexate (Methotrexate) 15 mg PO QWK [facility] Metoprolol Tartrate (Lopressor) 12.5 mg PO BID [facility] Last Admin: 06/03/18 09:13 Dose: Not Given Rivaroxaban (Xarelto) 20 mg PO DAILY [facility]; Protocol Last Admin: 06/03/18 09:15 Dose: 20 mg Trazodone HCl (Desyrel) 100 mg PO HS PRN PRN Reason: Sleep - Labs Labs: 06/03/18 09:20 06/03/18 09:20 PT 12.5 Seconds (9.8-13.1) 05/25/18 18:00 INR 1.1 05/25/18 18:00 APTT 30.5 Seconds (25.6-37.1) 05/26/18 08:15 - Constitutional Appears: No Acute Distress, Confused - Head Exam Head Exam: NORMAL INSPECTION - Eye Exam Eye Exam: PERRL - ENT Exam ENT Exam: Normal Exam - Neck Exam Neck Exam: Normal Inspection - Respiratory Exam Respiratory Exam: Decreased Breath Sounds (at bases), Rhonchi (scattered) - Cardiovascular Exam Cardiovascular Exam: REGULAR RHYTHM - GI/Abdominal Exam GI & Abdominal Exam: Soft, Normal Bowel Sounds - Extremities Exam Extremities Exam: Normal Inspection - Back Exam Back Exam: NORMAL INSPECTION - Neurological Exam Neurological Exam: Awake, CN II-XII Intact Additional comments: No focal motor/sensory deficit, generalized weakness. - Psychiatric Exam Psychiatric exam: Depressed - Skin Skin Exam: Warm Assessment and Plan (1) Status post fall Status: Acute (2) Weakness Status: Acute (3) Hyperglycemia Status: Acute (4) Diabetes mellitus Status: Chronic (5) Cough Status: Acute (6) COPD (chronic obstructive pulmonary disease) Status: Chronic (7) Lung nodules Status: Chronic (8) Arthritis Status: Chronic (9) Schizophrenia Status: Chronic (10) Acute kidney injury Status: Resolved - Assessment and Plan (Free Text) Plan: BUN, Creatinine normal, BS normal, PAMELLA resolved, , continue current Tx, Bradycardia improved, A fib , Patient on Eliquis, Cardiac consult appreciated, continue PT, for DOMINIC
--- NOTE | 2018-06-03 21:02 | CARD ---
APPROVED REPORT Date of service: 06/03/2018 EKG Measurement Heart [id number] <Conclusion> Atrial flutter with 3:1 AV conduction Nonspecific intraventricular conduction delay Abnormal ECG
[2018-06-04] MEDS: Artificial Tears Opht Soln OU SCH ×2 (08:54→15:31)
[2018-06-04] MEDS: Cholecalciferol 1,000 INTLU TAB PO SCH (08:58)
[2018-06-04] MEDS: Insulin Lispro (humaLOG) 100 Units/ml Inj SC SCH (08:59)
[2018-06-04] MEDS: GlipiZIDE 10 mg SR Tab PO SCH (09:00)
--- NOTE | 2018-06-04 10:38 | CP.PCM.PN ---
Subjective - Date & Time of Evaluation Date of Evaluation: 06/04/18 Time of Evaluation: 08:00 - Subjective Subjective: no fever + headache NAD cough less Objective - Vital Signs/Intake and Output Vital Signs (last 24 hours): Temp Pulse Resp BP Pulse Ox 97.5 F L 66 20 120/71 95 06/04/18 07:47 06/04/18 08:55 06/04/18 07:47 06/04/18 08:55 06/04/18 07:47 - Medications Medications: Current Medications Acetaminophen (Tylenol 325mg Tab) 650 mg PO Q4 PRN PRN Reason: Fever >100.4 F Last Admin: 05/29/18 05:24 Dose: 650 mg Albuterol/Ipratropium (Duoneb 3 Mg/0.5 Mg (3 Ml) Ud) 3 ml INH RQ4 PRN PRN Reason: Shortness of Breath Amiodarone HCl (Cordarone) 200 mg PO BID [facility] Last Admin: 06/04/18 08:55 Dose: 200 mg Artificial Tears (Artificial Tears) 1 drop OU QID [facility] Last Admin: 06/04/18 08:54 Dose: 1 drop Aspirin (Ecotrin) 81 mg PO DAILY [facility] Last Admin: 06/04/18 08:56 Dose: 81 mg Atorvastatin Calcium (Lipitor) 20 mg PO DAILY [facility] Last Admin: 06/04/18 09:00 Dose: 20 mg Cholecalciferol (Vitamin D) 2,000 intlu PO DAILY [facility] Last Admin: 06/04/18 08:58 Dose: 2,000 intlu Folic Acid (Folic Acid) 1 mg PO DAILY [facility] Last Admin: 06/04/18 08:56 Dose: 1 mg Glipizide (Glucotrol Xl) 20 mg PO BID [facility] Last Admin: 06/04/18 09:00 Dose: 20 mg Insulin Human Lispro (Humalog) 0 units SC ACHS [facility]; Protocol Last Admin: 06/04/18 08:59 Dose: 2 units Losartan Potassium (Cozaar) 50 mg PO DAILY [facility] Last Admin: 06/04/18 08:56 Dose: 50 mg Metformin HCl (Glucophage) 1,000 mg PO DIN [facility] Last Admin: 05/27/18 17:45 Dose: 1,000 mg Metformin HCl (Glucophage) 1,500 mg PO DAILY [facility] Last Admin: 05/28/18 09:17 Dose: 1,500 mg Methotrexate (Methotrexate) 15 mg PO QWK [facility] Metoprolol Tartrate (Lopressor) 12.5 mg PO BID [facility] Last Admin: 06/04/18 08:58 Dose: Not Given Rivaroxaban (Xarelto) 20 mg PO DAILY [facility]; Protocol Last Admin: 06/04/18 09:00 Dose: 20 mg Trazodone HCl (Desyrel) 100 mg PO HS PRN PRN Reason: Sleep - Labs Labs: 06/03/18 09:20 06/03/18 09:20 PT 12.5 Seconds (9.8-13.1) 05/25/18 18:00 INR 1.1 05/25/18 18:00 APTT 30.5 Seconds (25.6-37.1) 05/26/18 08:15 - Constitutional Appears: Non-toxic, Chronically Ill - Head Exam Head Exam: NORMOCEPHALIC - Eye Exam Eye Exam: absent: Scleral icterus - ENT Exam ENT Exam: Mucous Membranes Dry - Neck Exam Neck Exam: absent: Lymphadenopathy - Respiratory Exam Respiratory Exam: Decreased Breath Sounds, Rhonchi - Cardiovascular Exam Cardiovascular Exam: REGULAR RHYTHM - GI/Abdominal Exam GI & Abdominal Exam: Distended - Rectal Exam Rectal Exam: Deferred - Exam Exam: NORMAL INSPECTION - Extremities Exam Extremities Exam: absent: Pedal Edema - Back Exam Back Exam: absent: CVA tenderness (L), CVA tenderness (R) - Neurological Exam Neurological Exam: Alert, Awake, Oriented x3 Assessment and Plan (1) Acute encephalopathy Status: Acute (2) CHF (congestive heart failure) Status: Acute (3) Cough Status: Acute (4) Febrile illness, acute Status: Acute (5) Status post fall Status: Acute (6) Diabetes mellitus Status: Chronic (7) CKD (chronic kidney disease) Status: Acute (8) Lung nodule Status: Acute (9) Lung nodule seen on imaging study Status: Acute - Assessment and Plan (Free Text) Assessment: cont rx as planned discussed with Dr Albarado
--- NOTE | 2018-06-04 15:48 | CP.PCM.DIS ---
Provider - Provider Date of Admission: 05/25/18 21:34 Attending physician: Humphrey Albarado MD Consults: 05/27/18 00:34 Nursing Referral for Wound Care Routine Comment: Physician Instructions: Reason For Exam: low lidia scale 05/27/18 09:30 Psychiatry Consult Routine Comment: Consulting Provider: Lauren Orozco Consulting Physician: Lauren Orozco Reason for Consult: hx depression, schizophrenia, with weakness s/p fall; for meds adjus 05/27/18 11:15 Neurology Consult Routine Comment: Consulting Provider: Dorian Arellano Consulting Physician: Dorian Arellano Reason for Consult: weakness, s/p fall, CT head chronic infarcts 05/28/18 11:55 Nephrology Consult Routine Comment: Consulting Provider: Ismael Becerra Consulting Physician: Ismael Becerra Reason for Consult: ARF 05/28/18 14:40 Urology Consult Routine Comment: unable to void Consulting Provider: Jason Quinones Jr. Consulting Physician: Jason Quinones Jr. Reason for Consult: unable to void, place [place] and eval 05/29/18 11:26 Infectious Disease Consult Routine Comment: Consulting Provider: Serafin Lennon Consulting Physician: Serafin Lennon Reason for Consult: fever, ams, acute renal failure 06/03/18 09:15 Cardiology Consult Routine Comment: Consulting Provider: Jarrett Day Consulting Physician: Jarrett Day Reason for Consult: Bradycardia Diagnosis - Discharge Diagnosis (1) Status post fall Status: Acute Priority: High (2) Weakness Status: Acute Priority: High (3) Hyperglycemia Status: Acute Priority: High (4) Diabetes mellitus Status: Chronic Priority: High (5) Cough Status: Acute Priority: High (6) COPD (chronic obstructive pulmonary disease) Status: Chronic Priority: Medium (7) Lung nodules Status: Chronic (8) Arthritis Status: Chronic Priority: Medium (9) Schizophrenia Status: Chronic Priority: Medium (10) Acute kidney injury Status: Resolved Hospital Course - Lab Results Lab Results: Micro Results 05/29/18 10:07 Blood Blood Culture - Final NO GROWTH AFTER 5 DAYS 05/29/18 10:07 Blood Gram Stain - Final TEST NOT PERFORMED 05/29/18 10:07 Blood Blood Culture - Final NO GROWTH AFTER 5 DAYS 05/29/18 10:07 Blood Gram Stain - Final TEST NOT PERFORMED 05/25/18 18:00 Blood Blood Culture - Final NO GROWTH AFTER 5 DAYS 05/25/18 18:00 Blood Gram Stain - Final TEST NOT PERFORMED 05/25/18 18:00 Blood Blood Culture - Final NO GROWTH AFTER 5 DAYS 05/25/18 18:00 Blood Gram Stain - Final TEST NOT PERFORMED 05/29/18 10:01 Urine,Catheterized Urine Culture - Final No Growth (<1,000 CFU/ML) 05/25/18 04:07 Urine Urine Culture - Final No Growth (<1,000 CFU/ML) Most Recent Lab Values WBC 5.9 K/uL (4.8-10.8) 06/03/18 09:20 RBC 4.26 Mil/uL (4.40-5.90) L 06/03/18 09:20 Hgb 12.9 g/dL (12.0-18.0) 06/03/18 09:20 Hct 39.2 % (35.0-51.0) 06/03/18 09:20 MCV 92.1 fl (80.0-94.0) 06/03/18 09:20 MCH 30.3 pg (27.0-31.0) 06/03/18 09:20 MCHC 32.9 g/dL (33.0-37.0) L 06/03/18 09:20 RDW 13.3 % (11.5-14.5) 06/03/18 09:20 Plt Count 319 K/uL (130-400) 06/03/18 09:20 MPV 7.7 fl (7.2-11.7) 06/03/18 09:20 Neut % (Auto) 51.6 % (50.0-75.0) 06/03/18 09:20 Lymph % (Auto) 30.6 % (20.0-40.0) 06/03/18 09:20 [place] % (Auto) 9.3 % (0.0-10.0) 06/03/18 09:20 Eos % (Auto) 7.5 % (0.0-4.0) H 06/03/18 09:20 Baso % (Auto) 1.0 % (0.0-2.0) 06/03/18 09:20 Neut # (Auto) 3.1 K/uL (1.8-7.0) 06/03/18 09:20 Lymph # (Auto) 1.8 K/uL (1.0-4.3) 06/03/18 09:20 [place]rill # (Auto) 0.6 K/uL (0.0-0.8) 06/03/18 09:20 Eos # (Auto) 0.4 K/uL (0.0-0.7) 06/03/18 09:20 Baso # (Auto) 0.1 K/uL (0.0-0.2) 06/03/18 09:20 PT 12.5 Seconds (9.8-13.1) 05/25/18 18:00 INR 1.1 05/25/18 18:00 APTT 30.5 Seconds (25.6-37.1) 05/26/18 08:15 pCO2 47 mm/Hg (35-45) H 05/31/18 00:13 pO2 75 mm/Hg (80-100) L 05/31/18 00:13 HCO3 25.3 mmol/L (21-28) 05/31/18 00:13 ABG pH 7.36 (7.35-7.45) 05/31/18 00:13 ABG Total CO2 28.0 mmol/L (22-28) 05/31/18 00:13 ABG O2 Saturation 96.8 % (95-98) 05/31/18 00:13 ABG O2 Content 18.3 ML/dL (15-23) 05/31/18 00:13 ABG Base Excess 0.6 mmol/L (-2.0-3.0) 05/31/18 00:13 ABG Hemoglobin 13.8 g/dL (11.7-17.4) 05/31/18 00:13 ABG Carboxyhemoglobin 1.7 % (0.5-1.5) H 05/31/18 00:13 POC ABG HHb (Measured) 3.1 % (0.0-5.0) 05/31/18 00:13 ABG Methemoglobin 1.1 % (0.0-3.0) 05/31/18 00:13 ABG O2 Capacity 18.9 mL/dL (16-24) 05/31/18 00:13 Ed Test Yes 05/31/18 00:13 VBG pH 7.39 (7.32-7.43) 05/25/18 18:20 VBG pCO2 47 mmHg (40-60) 05/25/18 18:20 VBG HCO3 26.5 mmol/L 05/25/18 18:20 VBG Total CO2 29.9 mmol/L (22-28) H 05/25/18 18:20 VBG O2 Sat (Calc) 77.1 % (40-65) H 05/25/18 18:20 VBG Base Excess 2.8 mmol/L (0.0-2.0) H 05/25/18 18:20 VBG Potassium 4.5 mmol/L (3.6-5.2) 05/25/18 18:20 A-a O2 Difference 116.0 mm/Hg 05/31/18 00:13 Hgb O2 Saturation 94.2 % (95.0-98.0) L 05/31/18 00:13 Sodium 130.0 mmol/L (132-148) L 05/25/18 18:20 Chloride 93.0 mmol/L (98-107) L 05/25/18 18:20 Glucose 264 mg/dL (75-110) H 05/25/18 18:20 Lactate 3.4 mmol/L (0.7-2.1) H 05/25/18 18:20 Vent Mode Bipap 05/31/18 00:13 Mechanical Rate 16 05/31/18 00:13 FiO2 35.0 % 05/31/18 00:13 Inspiratory BiPAP 12 05/31/18 00:13 Expiratory BiPAP 5 05/31/18 00:13 Crit Value Called To marlene Krishnamurthy md 05/25/18 18:20 Crit Value Called By Padilla jackson 05/25/18 18:20 Crit Value Read Back Y 05/25/18 18:20 Blood Gas Notified Time 1829 05/25/18 18:20 Sodium 141 mmol/l (132-148) 06/03/18 09:20 Potassium 4.1 MMOL/L (3.6-5.0) 06/03/18 09:20 Chloride 104 mmol/L (98-107) 06/03/18 09:20 Carbon Dioxide 30 mmol/L (22-30) 06/03/18 09:20 Anion Gap 11 (10-20) 06/03/18 09:20 BUN 9 mg/dl (9-20) 06/03/18 09:20 Creatinine 0.9 mg/dl (0.8-1.5) 06/03/18 09:20 Est GFR ( Amer) > 60 06/03/18 09:20 Est GFR (Non-Af Amer) > 60 06/03/18 09:20 POC Glucose (mg/dL) 177 mg/dL (65-110) H 06/04/18 05:17 Random Glucose 120 mg/dL (75-110) H 06/03/18 09:20 Hemoglobin A1c 13.1 % (4.2-6.5) H 05/30/18 05:20 Lactic Acid 1.7 MMOL/L (0.7-2.1) 05/26/18 09:45 Uric Acid 11.1 mg/Dl (3.5-8.5) H 05/28/18 10:00 Calcium 8.9 mg/dL (8.4-10.2) 06/03/18 09:20 Phosphorus 2.6 mg/dl (2.5-4.5) 06/03/18 09:20 Magnesium 1.6 MG/DL (1.6-2.3) 06/03/18 09:20 Total Bilirubin 0.4 mg/dl (0.2-1.3) 06/03/18 09:20 AST 42 U/L (17-59) 06/03/18 09:20 ALT 42 U/L (21-72) 06/03/18 09:20 Alkaline Phosphatase 64 U/L (38-126) 06/03/18 09:20 Total Creatine Kinase 326 U/L (55-170) H 05/29/18 12:16 Troponin I 0.0420 ng/mL (0.00-0.120) 05/26/18 08:15 NT-Pro-B Natriuret Pep 383 pg/ml (0-900) 05/25/18 18:00 Total Protein 7.3 G/DL (6.3-8.2) 06/03/18 09:20 Albumin 3.5 g/dL (3.5-5.0) 06/03/18 09:20 Globulin 3.8 gm/dL (2.2-3.9) 06/03/18 09:20 Albumin/Globulin Ratio 0.9 (1.0-2.1) L 06/03/18 09:20 Triglycerides 112 mg/DL (0-149) 05/30/18 05:20 Cholesterol 135 mg/dL (0-199) 05/30/18 05:20 LDL Cholesterol Direct 76 mg/dL (0-129) 05/30/18 05:20 HDL Cholesterol 35 MG/DL (30-70) 05/30/18 05:20 Angiotensin Convert Enz 8 U/L (9-67) L 05/29/18 20:40 Procalcitonin 0.42 NG/ML (0.19-0.49) 05/29/18 20:40 Thyroxine (T4) 9.28 ug/dl (5.5-11.0) 05/26/18 08:15 TSH 3rd Generation 1.14 mIU/ML (0.46-4.68) 05/26/18 08:15 Venous Blood Potassium 4.5 mmol/L (3.6-5.2) 05/25/18 18:20 Urine Color Yellow (YELLOW) 05/29/18 10:01 Urine Clarity Cloudy (Clear) 05/29/18 10:01 Urine pH 5.0 (5.0-8.0) 05/29/18 10:01 Ur Specific [place] 1.015 (1.003-1.030) 05/29/18 10:01 Urine Protein 30 mg/dL (NEGATIVE) 05/29/18 10:01 Urine Glucose (UA) 50 mg/dL (NEGATIVE) 05/29/18 10:01 Urine Ketones Negative mg/dL (NEGATIVE) 05/29/18 10:01 Urine Blood Large (NEGATIVE) 05/29/18 10:01 Urine Nitrate Negative (NEGATIVE) 05/29/18 10:01 Urine Bilirubin Negative (NEGATIVE) 05/29/18 10:01 Urine Urobilinogen 0.2-1.0 mg/dL (0.2-1.0) 05/29/18 10:01 Ur Leukocyte Esterase Neg Alyssa/uL (Negative) 05/29/18 10:01 Urine RBC (Auto) 51 /hpf (0-3) H 05/29/18 10:01 Urine Microscopic WBC 10 /hpf (0-5) H 05/29/18 10:01 Ur Squamous Epith Cells 1 /hpf (0-5) 05/29/18 10:01 Amorphous Sediment Rare /ul (<OCC) H 05/29/18 10:01 Urine Bacteria Rare (<OCC) 05/29/18 10:01 Hyaline Casts 3-5 /hpf (0-2) H 05/29/18 10:01 Urine Yeast (Budding) Few /hpf (NEGATIVE) H 05/29/18 10:01 Ur Random Creatinine 232.3 mg/dL 05/29/18 04:00 U Random Total Protein 64 mg/L 05/29/18 09:00 Ur Random Sodium 28 meq/L 05/29/18 04:00 Ur Random Potassium 50.2 mmol/L 05/29/18 04:00 Urine Creatinine 207 mg/dL (20-320) 05/29/18 04:00 Urine Microalbumin 20.8 mg/dL 05/29/18 04:00 Microalb/Creat Ratio 100 (<30) H 05/29/18 04:00 Serum Immunofixation Not detected (Not Detected) 05/29/18 20:40 Rheumatoid Arth Interp Positive (NEGATIVE) H 05/29/18 20:40 Complement C3 108.0 mg/dL (88.0-165.0) 05/29/18 16:00 Complement C4 37.4 mg/dL (14.0-44.0) 05/29/18 16:00 RPR Nonreactive (NONREACTIVE) 05/29/18 20:40 Hepatitis A IgM Ab Negative (NEGATIVE) 05/29/18 20:40 Hep Bs Antigen Negative (NEGATIVE) 05/29/18 20:40 Hep B Core IgM Ab Negative (NEGATIVE) 05/29/18 20:40 Hepatitis C Antibody Negative (NEGATIVE) 05/29/18 20:40 HIV 1&2 Antibody Screen Negative (NEGATIVE) 05/29/18 16:00 Influenza Typ A,B (EIA) Negative for flu a/b (NEGATIVE) 05/25/18 18:15 Blood Type A POSITIVE 05/25/18 18:24 Blood Type Confirm A POSITIVE 05/25/18 10:00 Antibody Screen Negative 05/25/18 18:24 BBK History Checked No verified bt 05/25/18 18:24 Discharge Exam - Head Exam Head Exam: NORMAL INSPECTION Discharge Plan - Follow Up Plan Condition: FAIR Disposition: HOME/ ROUTINE Instructions: Heart Failure, Adult (DC)
[2018-06-04 15:52] VITALS: BP 147/88; PULSE 73; RESP 17; TEMP 97.8; O2SAT 92
== END 2018-06-04 16:50 | DRG 682 ==
LOC: H.ER 15:55 → H.ERHOLD 21:34 → H.TEL 05-26 21:45
PROVIDERS: ADMIT Internal Medicine Pulmonary Disease; ATTEND Internal Medicine Pulmonary Disease
PROC: 5A09357 Assistance with Respiratory Ventilation, Less than 24 Consecutive Hours, Continuous Positive Airway Pressure (ICD-10-PCS; principal; 2018-05-30)
DX: N17.0 Acute kidney failure with tubular necrosis (principal); G92 Toxic encephalopathy; J96.02 Acute respiratory failure with hypercapnia; J96.01 Acute respiratory failure with hypoxia; J18.9 Pneumonia, unspecified organism; E87.4 Mixed disorder of acid-base balance; I13.0 Hypertensive heart and chronic kidney disease with heart failure and stage 1 through stage 4 chronic kidney disease, or unspecified chronic kidney disease; J44.0 Chronic obstructive pulmonary disease with (acute) lower respiratory infection; F20.89 Other schizophrenia; I48.2 Chronic atrial fibrillation; I50.9 Heart failure, unspecified; N18.9 Chronic kidney disease, unspecified; E11.22 Type 2 diabetes mellitus with diabetic chronic kidney disease; E11.65 Type 2 diabetes mellitus with hyperglycemia; I25.10 Atherosclerotic heart disease of native coronary artery without angina pectoris; R00.1 Bradycardia, unspecified; F32.9 Major depressive disorder, single episode, unspecified; E78.5 Hyperlipidemia, unspecified; E78.00 Pure hypercholesterolemia, unspecified; H91.92 Unspecified hearing loss, left ear; G47.30 Sleep apnea, unspecified; E66.9 Obesity, unspecified; Z68.37 Body mass index [BMI] 37.0-37.9, adult; R91.1 Solitary pulmonary nodule; M19.90 Unspecified osteoarthritis, unspecified site; Z91.81 History of falling; Z79.01 Long term (current) use of anticoagulants; Z79.02 Long term (current) use of antithrombotics/antiplatelets; Z79.82 Long term (current) use of aspirin; Z79.84 Long term (current) use of oral hypoglycemic drugs; Z95.5 Presence of coronary angioplasty implant and graft; Z87.891 Personal history of nicotine dependence